=== PATIENT | female | born 1965 | race Caucasian/White ===

== ENCOUNTER 2019-12-12 06:41 | Emergency (ER) | payer MEDICAID, SELFPAY ==
[2019-12-12 06:52] VITALS: BP 193/131; PULSE 110; RESP 16; TEMP 36.8; O2SAT 98; BMI 24.7
--- NOTE | 2019-12-12 07:13 | ED_ITS ---
HPI - Fall General: Chief Complaint: Fall Stated Complaint: R KNEE INJURY Time Seen by Provider: 12/12/19 06:55 History of Present Illness: HPI Narrative: Patient is a 54-year-old female comes to the ED with right knee pain after having a fall. Patient also has 2 abrasions on knee as well. Patient says she had her last tetanus shot approximately a year ago. Patient is able to ambulate. Denies hitting her head or any loss of consciousness. complaint: fall Onset (ago): hour(s) (1 hour ago) Fall from: standing Fall witnessed: no Place fall occurred: work (pt was outside on her smoke break) Loss of consciousness: None Prolonged down time: no Symptoms prior to fall: none Context: tripped/slipped (pt stepped in a hole causing her to trip) Location of injury - extremities: Right: knee (with some abrasions) Severity: mild Severity scale (1-10): 3 Quality: aching Associated symptoms-after fall: Denies abdominal pain, chest pain, headache(s), hematuria or neck pain Review of Systems Const: Denies: fever(s), chills or fatigue Eyes: Denies: change in vision or eye discomfort ENMT: Denies: throat pain, odynophagia, nasal discharge or nasal congestion Card: Denies: chest pain, palpitations, edema, swelling of feet/ankles, dyspnea on exertion or orthopnea Resp: Denies: dyspnea, productive cough or non-productive cough GI: Denies: abdominal pain, nausea, vomiting, diarrhea, constipation or hematochezia : Denies: flank pain, dysuria or hematuria Musc: Reports: extremity pain (right knee); Denies: neck pain, back pain or extremity swelling Skin/Breast: Reports: new lesions (abrasions on right knee); Denies: rash Neuro: Denies: headache(s), numbness in extremities or weakness in extremities PFS ED PFSH: Social History Smoking and tobacco status: current every day smoker Alcohol intake: never Physical Exam Const: COMMON NORMALS: no acute distress, patient oriented x3, healthy appearing and alert GENERAL APPEARANCE: cooperative and comfortable HENMT: COMMON NORMALS: normocephalic HEAD & SCALP: normocephalic MOUTH: Normal oral and palatal mucosa present THROAT: posterior oropharynx normal and uvula midline Eye: COMMON NORMALS: Equal, round and reactive pupils present PUPIL: Yes Equal, round and reactive pupils present Neck/C-Spine: COMMON NORMALS: supple GENERAL: Yes normal visual inspection Resp: COMMON NORMALS: normal respiratory effort, No retractions, No use of accessory muscles and clear to auscultation bilaterally AUSCULTATION: clear to auscultation bilaterally Cardio: COMMON NORMALS: regular rate, regular rhythm, S1 normal heart sound present, S2 normal heart sound present, No gallops present (Cardio), No clicks present (Cardio), No murmurs present (Cardio) and Peripheral pulses 2+ throughout RATE: regular rate RHYTHM: regular rhythm HEART SOUNDS: S1 normal heart sound present and S2 normal heart sound present PERIPHERAL PULSES: Peripheral pulses 2+ throughout GI: COMMON NORMALS: Normal to inspection, nondistended, normoactive bowel soun ds present, Soft to palpation, non-tender and no masses PALPATION: Yes Soft to palpation : COMMON NORMALS: Yes no CVA tenderness BLADDER/KIDNEY EXAM: Yes no CVA tenderness Back/Pelvis: COMMON NORMALS: no CVA tenderness Extremity: RIGHT LOWER EXTREMITY: Yes knee joint Right knee: Yes inspection (Multiple abrasions on right knee. No visible edema or ecchymosis seen.), Yes palpation (mild tenderness), Yes ROM (Full with minimal pain.) and Yes neurovascular exam (Intact) Neuro: COMMON NORMALS: patient oriented x3 and moves all extremities SENSORIUM/ORIENTATION: Yes alert Skin: GENERAL SKIN EXAM: dry skin TRAUMA: abrasion (multiple superficial abrasions on right knee) Course Vital Signs: Vital signs: Vital Signs Temperature 98.2 F 12/12/19 06:52 Pulse Rate 110 H 12/12/19 06:52 Respiratory Rate 16 12/12/19 06:52 Blood Pressure 193/131 12/12/19 06:52 Pulse Oximetry 98 12/12/19 06:52 MDM - Fall MDM Narrative: Medical decision making narrative: Patient is a 54-year-old female comes to the ED with right knee pain pain after having a fall. Patient has multiple superficial abrasions of the right knee. X-ray was performed on right knee showed no acute fractures or findings. Patient says she was up-to-date on her tetanus. Her abrasions were irrigated, bacitracin was applied and bandaged. Patient was told to rest, ice and elevate right knee as needed to improve symptoms. Take [id number] ibuprofen for pain. Follow-up with PCP in 7 to 10 days for reevaluation. Return to ED precautions given. Patient understood and agreed with plan. Imaging Data^: Xray Ortho: Attestation: I personally reviewed and interpreted this imaging study as follows: My impression: right knee xray-no acute fractures or findings. Discharge Plan Discharge Patient Disposition: Home Clinical Impression: Abrasion Contusion Qualifiers: Encounter type: initial encounter Contusion area: knee Laterality: right Qualified Code(s): S80.01XA - Contusion of right knee, initial encounter Condition: Stable Prescriptions: No Action No Known Home Medications RF: 0 Discharge Orders: Discharge Order (Routine); Ordered 12/12/19 Ordered By: Kyrie Isabel Discharge Diet: Regular Discharge Activity: Resume usual activity Patient Instructions: Contusion in Adults (ED), Knee Pain (ED) Activity Restrictions/Additional Instructions: Follow-up with medical provider as directed in 7-10 days. Take over the counter ibuprofen for pain. Rest, ice and elevate right knee to help improve symptoms. Return to the ER or your medical provider if condition worsens. Please read and understand discharge instructions. If any questions, please ask. Coding Level of Care Code ED Tax Collector for Mattie Fwhernando Exam Comprehensive
--- NOTE | 2019-12-12 07:18 | XR_ITS ---
WS: [id number] Right knee, 3 views, 12/11/2019 Clinical Data: fall with knee pain Comparison: None. Findings: No fractures or dislocations are seen. The joint spaces are normal. The patella is intact. The soft t issues are unremarkable. XR/XR knee RT 3V* [id number] Impression: Negative right knee.
[2019-12-12] MEDS: ketorolac 60 mg/2 mL INJ IM (07:31)
[2019-12-12 07:45] VITALS: BP 178/103; PULSE 84; O2SAT 98
--- NOTE | 2019-12-12 07:45 | PC.NURSE ---
wound cleaned with sterile water, bactiracin applied, wound dressed with kerlix and coban.
[2019-12-12] MEDS: bacitracin ointment Pkt 1 EACH TOPICAL (07:58)
== END 2019-12-12 07:45 | disposition home or self-care (01) ==
LOC: ER 07:58
PROVIDERS: Emergency Provider Physician Assistant
DX: S80.01XA Contusion of right knee, initial encounter (principal); F17.210 Nicotine dependence, cigarettes, uncomplicated; W19.XXXA Unspecified fall, initial encounter
CPT/HCPCS: 12345; 73562; 96372; 99281; 99283; J1885

== ENCOUNTER 2020-03-30 08:02 | Emergency (ER) | payer OTHER, SELFPAY ==
--- NOTE | 2020-03-30 08:16 | ED_ITS ---
HPI - Extremity Injury (Upper) General: Chief Complaint: Wound/Laceration Stated Complaint: FINGER INJURY Time Seen by Provider: 03/30/20 08:06 Source: patient Mode of arrival: ambulatory Limitations: no limitations History of Present Illness: HPI narrative: Pleasant 54-year-old female patient presents to the emergency department with left second finger, index finger injury. Injury occurred at work, reports was opening a door and smashed her left index finger against a metal cart. She sustained laceration. Received tetanus vaccine earlier this year. complaint: injury to: left and finger Onset (ago): minute(s) (15) Other Extremity Injury: Left: fingers Other injuries: none Handedness: right Place: work Severity: mild Severity scale (1-10): 3 Relieving factors: other (pressure) Exacerbating factors: movement of extremity Context: crush and injury Associated symptoms: Reports no associated symptoms; Denies neck pain or weakness in extremities Treatments prior to arrival: bandage Review of Systems General: Reports: 10 or more systems reviewed and unremarkable except in HPI and below Const: Denies: fever(s), chills or diaphoresis Eyes: Denies: blurry vision or eye redness ENMT: Denies: throat pain, dental pain or disequilibrium Card: Denies: chest pain, palpitations or irregular heart rhythm Resp: Denies: dyspnea, productive cough, non-productive cough or wheezing GI: Denies: abdominal pain, nausea or vomiting : Denies: difficulty voiding or dysuria Musc: Reports: extremity pain (left index finger); Denies: neck pain, back pain or limited range of motion Skin/Breast: Denies: rash or pruritus Neuro: Denies: headache(s), weakness in extremities or behavioral changes Psych: Denies: anxiety or depression Paul/Lymph: Denies: easy bruising PFSH ED PFSH: Medical History Allergic rhinitis due to allergen Anxiety about health Hypertension PVD (peripheral vascular disease) with claudication Stroke Social History Smoking and tobacco status: current every day smoker cigarettes Packs smoked per day: 0.75 Second hand smoke exposure: Yes Alcohol intake: never Current occupational status: employed Physical Exam Const: COMMON NORMALS: no acute distress, patient oriented x3, healthy appearing and alert GENERAL APPEARANCE: cooperative, comfortable and well hydrated HENMT: COMMON NORMALS: normocephalic, Normal external nose present and moist oral mucous membranes HEAD & SCALP: normocephalic NOSE: Normal external nose present Eye: COMMON NORMALS: Equal, round and reactive pupils present and EOMs intact bilaterally GENERAL EYE: appearance normal, both eyes and all related structures PUPIL: Yes Equal, round and reactive pupils present Neck/C-Spine: COMMON NORMALS: full ROM and no lymphadenopathy GENERAL: Yes normal visual inspection and Yes trachea midline CERVICAL SPINE: Yes cervical ROM normal Lymph: LYMPHATIC: no lymphadenopathy noted Chest: COMMONS NORMALS: normal inspection of the chest Resp: COMMON NORMALS: normal respiratory effort and clear to auscultation bilaterally AUSCULTATION: clear to auscultation bilaterally Cardio: COMMON NORMALS: regular rhythm, S1 normal heart sound present and S2 normal heart sound present RHYTHM: regular rhythm HEART SOUNDS: S1 normal heart sound present and S2 normal heart sound present GI: COMMON NORMALS: Soft to palpation and non-tender INSPECTION: Yes normal to inspection PALPATION: Yes Soft to palpation : COMMON NORMALS: Yes no CVA tenderness BLADDER/KIDNEY EXAM: Yes no CVA tenderness Back/Pelvis: COMMON NORMALS: no CVA tenderness and thoracic and lumbar spine normal to inspection Extremity: COMMON NORMALS: normal to inspection, full ROM and capillary refill normal GENERAL: Yes normal exam except as noted LEFT UPPER EXTREMITY: Yes hand & digits (left index finger with laceration, distal tip, volar side, no nail injury) Left hand and digits: Yes palpation (non-tender), Yes neurovascular exam (distally intact) and Yes tendon exam (intact distally) Neuro: COMMON NORMALS: patient oriented x3 and no focal motor deficits SENSORIUM/ORIENTATION: Yes alert Psych: COMMON NORMALS: mental status grossly normal, Normal thought process present and cooperative ACTIVITY/MOTOR BEHAVIOR: Yes appropriate eye contact THOUGHT PROCESS: Normal thought process present Skin: COMMON NORMALS: no rashes or lesions noted and turgor normal GENERAL SKIN EXAM: no rashes or lesions noted and turgor normal LESIONS: no lesions RASHES: no rashes TRAUMA: laceration (1 cm) linear (Vertical, distal tip left index finger, volar side), actively bleeding, involves subcutaneous tissue, motor nerve function intact and sensation intact Procedures Laceration Laceration 1: Site: hand (left index finger) Side (If applicable): left Description: linear (contused) Depth: simple, single layer Local Anesthetic: lidocaine 1% Amount of anesthesia used (mL): 1 Pre-repair: wound explored, irrigated extensively and deep structures intact Skin layer closed with: nylon Size (cm): 5-0 Number of sutures: 1 Technique: simple, interrupted Course Vital Signs: Vital signs: Vital Signs Temperature 98.5 F 03/30/20 08:32 Pulse Rate 90 03/30/20 10:34 Respiratory Rate 18 03/30/20 10:34 Blood Pressure 172/116 03/30/20 10:34 Pulse Oximetry 97 03/30/20 10:34 MDM - Extremity Injury (Upper) MDM Narrative: Medical decision making narrative: 54-year-old female patient presents to the emergency department with left index finger injury, Workmen's Compensation forms completed, blood pressure was noted to be elevated here in the ED, she reports did not take her blood pressure medication today, noncompliance with daily medication use. She was instructed on need to follow- up with her primary care physician as well as take her blood pressure medication daily. Imaging Data^: Xray Ortho: Radiologist's impression: [address] [address] XRay Report Signed Patient: Hortensia Lanier Unit #: [id number] : 1965 Age/Sex: 54 / F ADM Date: 03/30/20 Loc: ER Room/Bed: Attending Dr: Ordering Provider/Ordering MD: Ciara Yoder Date of Service: 03/30/20 Procedure(s): XR finger LT min 2V 07150 Accession Number(s): [id number] Report Number: [id number] PROCEDURE INFORMATION: Exam: XR Left Finger(s) Exam date and time: 03/30/2020 8:28 AM Age: 54 years old Clinical indication: Injury or trauma; Blunt trauma (contusions or hematomas) and crushing; Left; Index finger; Patient HX: 2nd digit crushed in door; Additional info: Crush/smash injury TECHNIQUE: Imaging protocol: XR Left fingers. Views: Minimum 2 views. COMPARISON: CTA Upper Extrem LEFT [id number] 02/19/2016 2:05 PM FINDINGS: Bones/joints: There is a nondisplaced curvilinear fracture through the tuft of the distal phalanx which is best seen on the AP view. Soft tissues: Normal. XR/XR finger LT min 2V 86662 IMPRESSION: Nondisplaced fracture of the tuft. Dictated By: Benji De Leon Signed By: Benji De Leon Signed Date/Time: 03/30/20918 DD/ 6 Discharge Plan Discharge Patient Disposition: Home Clinical Impression: Crushing injury of finger of left hand Laceration of finger, index Qualifiers: Encounter type: initial encounter Damage to nail status: without damage Foreign body presence: without foreign body Laterality: left Qualified Code(s): S61.211A - Laceration without foreign body of left index finger without damage to nail, initial encounter Finger fracture, left Qualifiers: Encounter type: initial encounter Finger: index finger Fracture type: open Phalanx: distal Fracture alignment: nondisplaced Qualified Code(s): S62.661B - Nondisplaced fracture of distal phalanx of left index finger, initial encounter for open fracture Condition: Stable Prescriptions: No Action aspirin 81 mg tablet,delayed release (DR/EC) 81 mg PO DAILY Qty: 100 RF: 3 fexofenadine [Allergy Relief (fexofenadine)] 60 mg tablet 60 mg PO DAILY RF: 0 sertraline [Zoloft] 50 mg tablet 50 mg PO DAILY Qty: 30 RF: 0 lisinopril 20 mg tablet 20 mg PO DAILY Qty: 30 RF: 2 Discharge Orders: Discharge ED (Routine); Ordered 03/30/20 Ordered By: Ciara Yoder Referrals: Monster Grigsby MD [Primary Care Provider] - Discharge Diet: Usual diet Discharge Activity: Limit activity as instructed Patient Instructions: Crush Injury, Suture Care (ED), Laceration (ED), Finger Fracture (ED), Chronic Hypertension (ED) Activity Restrictions/Additional Instructions: no use of the left hand until suture are removed follow up with workman's comp tomorrow for wound check do NOT submerge the affected finger in water, may apply triple antibiotic ointment twice daily to the area, may apply Band-Aid as needed If sutures get wet, gently pat dry If signs and symptoms of infection such as redness swelling drainage occur, you will need to return to the emergency department or follow-up with Workmen's Comp. Sutures out in [address] up [address] Dr Carter for blood pressure - take BP medication, DAILY and record BP readings Coding Level of Care Code ED Restaurant Hourly Manager for Mattie Fwd Exam Comprehensive
--- NOTE | 2020-03-30 08:16 | XRR_ITS ---
PROCEDURE INFORMATION: Exam: XR Left Finger(s) Exam date and time: 03/30/2020 8:28 AM Age: 54 years old Clinical indication: Injury or trauma; Blunt trauma (contusions or hematomas) and crushing; Left; Index finger; Patient HX: 2nd digit crushed in door; Additional info: Crush/smash injury TECHNIQUE: Imaging protocol: XR Left fingers. Views: Minimum 2 views. COMPARISON: CTA Upper Extrem LEFT [id number] 02/19/2016 2:05 PM FINDINGS: Bones/joints: There is a nondisplaced curvilinear fracture through the tuft of the distal phalanx which is best seen on the AP view. Soft tissues: Normal. XR/XR finger LT min 2V 79192 IMPRESSION: Nondisplaced fracture of the tuft.
[2020-03-30 08:32] VITALS: BP 171/103; PULSE 98; RESP 18; TEMP 36.9; O2SAT 99; BMI 25.8
[2020-03-30 09:00] VITALS: BP 161/103; O2SAT 94
[2020-03-30] MEDS: acetaminophen 500 mg Tablet 1000 MG PO (09:14)
[2020-03-30] MEDS: lidocaine 1% INJ 20 mL INJECTION (09:15)
[2020-03-30] MEDS: neomycin-poly-bacitracin oint 0.9 gm Pkt 1 APPLIC TOPICAL (09:15)
[2020-03-30 09:25] VITALS: BP 166/108; PULSE 90; O2SAT 96
[2020-03-30] MEDS: lisinopril 20 mg Tablet PO (09:48)
--- NOTE | 2020-03-30 10:00 | PC.NURSE ---
Teljazlyn, kvng and frog splint appied to left 2nd finger. Pt tolerated well. Dressing applied loosely per practitioners orders.
[2020-03-30 10:34] VITALS: BP 172/116; PULSE 90; RESP 18; O2SAT 97
== END 2020-03-30 10:31 | disposition home or self-care (01) ==
PROVIDERS: Emergency Provider Nurse Practitioner Family; PCP Family Medicine Adult Medicine
DX: S67.191A Crushing injury of left index finger, initial encounter (principal); S61.211A Laceration without foreign body of left index finger without damage to nail, initial encounter; S62.661B Nondisplaced fracture of distal phalanx of left index finger, initial encounter for open fracture; Z79.82 Long term (current) use of aspirin; I10 Essential (primary) hypertension; F17.210 Nicotine dependence, cigarettes, uncomplicated; W23.0XXA Caught, crushed, jammed, or pinched between moving objects, initial encounter; Y99.0 Civilian activity done for income or pay; Z86.73 Personal history of transient ischemic attack (TIA), and cerebral infarction without residual deficits
CPT/HCPCS: 12001; 12345; 73140; 99281; 99283; A6446

== ENCOUNTER 2020-10-12 14:25 | Emergency (ER) | payer OTHER, MEDICAID, SELFPAY ==
[2020-10-12 15:07] VITALS: BP 125/86; PULSE 112; RESP 20; TEMP 36.6; O2SAT 95; BMI 30.1
--- NOTE | 2020-10-12 17:05 | PC.NURSE ---
wound cleaned and irrigated with bandage applied to right thigh and right calf; pt tolerated well.
[2020-10-12] MEDS: neomycin-poly-bacitracin oint 0.9 gm Pkt 1 APPLIC TOPICAL ×2 (17:13→17:33)
--- NOTE | 2020-10-12 17:23 | W.ED.ANIMALB ---
HPI - Animal Bite General: Chief Complaint: Animal Bite Stated Complaint: DOG BITE Time Seen by Provider: 10/12/20 15:54 Source: patient Mode of arrival: EMS Limitations: no limitations History of Present Illness: HPI narrative: Patient is a 55-year-old female who stated that she got new neighbors who have several dogs 1 of which was a pitbull attacked her and bit her on her right thigh today. It was an unprovoked attack according to the patient. The patient states that her neighbor said the dog is up-to-date on his vaccines, however she is to call law enforcement to report the case. She states that she is up-to-date on her tetanus vaccines. complaint: animal bite Onset (ago): hour(s) (1) Animal: dog Description of animal: household pet and immunizations UTD Mechanism: bite Location - Extremities: Right: thigh Pain description: sharp Severity scale (1-10): 10 Context: unprovoked Associated symptoms: Deny bleeding, chills, cough, diaphoresis, erythema, fever(s), headache(s), numbness, rash, short of breath, syncope, weakness or wound drainage Review of Systems General: Reports: 10 or more systems reviewed and unremarkable except in HPI and below Const: Denies: fever(s), chills or diaphoresis Card: Denies: syncope Neuro: Denies: headache(s) PFSH ED PFSH: Medical History (Reviewed 10/12/20 @ 17:26 by Jovani Arzola MD, [facility] [place]) Allergic rhinitis due to allergen Anxiety about health Hypertension Lumbosacral strain Porokeratosis PVD (peripheral vascular disease) with claudication Stroke Social History (Reviewed 10/12/20 @ 17:26 by Jovani Arzola MD, [facility] [place]) Smoking and tobacco status: current every day smoker cigarettes Packs smoked per day: 0.75 Second hand smoke exposure: Yes Alcohol intake: never Current occupational status: employed Physical Exam Const: COMMON NORMALS: no acute distress, average body habitus, patient oriented x3, no limitations, healthy appearing, alert and well nourished HENMT: COMMON NORMALS: normocephalic, atraumatic and moist oral mucous membranes HEAD & SCALP: normocephalic and atraumatic Neck/C-Spine: COMMON NORMALS: no meningeal signs and no JVD Chest: COMMONS NORMALS: normal inspection of the chest and normal palpation of entire chest wall Resp: COMMON NORMALS: normal respiratory effort, No retractions, No use of accessory muscles, clear to auscultation bilaterally and percussion normal AUSCULTATION: clear to auscultation bilaterally PERCUSSION: percussion normal Cardio: COMMON NORMALS: no JVD, regular rate, regular rhythm, S1 normal heart sound present, S2 normal heart sound present, No gallops present (Cardio), No clicks present (Cardio), No murmurs present (Cardio), No rub (Cardio) and Peripheral pulses 2+ throughout RATE: regular rate RHYTHM: regular rhythm HEART SOUNDS: S1 normal heart sound present and S2 normal heart sound present PERIPHERAL PULSES: Peripheral pulses 2+ throughout GI: COMMON NORMALS: Normal to inspection, nondistended, normoactive bowel sounds present, Soft to palpation, non-tender, No hepatosplenomegaly present, no masses and no bruits PALPATION: Yes Soft to palpation and Yes No hepatosplenomegaly present : COMMON NORMALS: Yes no CVA tenderness BLADDER/KIDNEY EXAM: Yes no CVA tenderness Back/Pelvis: COMMON NORMALS: no CVA tenderness Extremity: COMMON NORMALS: normal to inspection, full ROM, capillary refill normal, no calf tenderness and no pedal edema Neuro: COMMON NORMALS: patient oriented x3 SENSORIUM/ORIENTATION: Yes alert MENINGEAL SIGNS: Yes no meningeal signs Skin: COMMON NORMALS: turgor normal, no jaundice, no petechiae and no mottling GENERAL SKIN EXAM: turgor normal and no erythema OTHER: There are multiple puncture wounds on her posterior right thigh and one jagged laceration that is about 6 cm in length. There are 5 puncture wounds on the posterior thigh with underlying hematoma that is developing. There is also a single puncture wound on her distal posterior leg. No signs of infection. Procedures Laceration Laceration 1: Site: lower extremity Side (If applicable): right Size (cm): 6 Description: irregular Depth: simple, single layer Local Anesthetic: lidocaine 2% and with epi Amount of anesthesia used (mL): 5 Pre-repair: wound explored, irrigated extensively and deep structures intact Skin layer closed with: nylon Size (cm): 4-0 Number of sutures: 5 Technique: simple, interrupted Course Vital Signs: Vital signs: Vital Signs Temperature 98 F 10/12/20 15:07 Pulse Rate 112 H 10/12/20 15:07 Respiratory Rate 20 H 10/12/20 15:07 Blood Pressure 125/86 10/12/20 15:07 Pulse Oximetry 95 10/12/20 15:07 MDM - Animal Bite MDM Narrative: Medical decision making narrative: 55-year-old female patient who was bit by her neighbors erika today. The neighbor claims that the chelseabudavid is vaccinated. However law enforcement was called and have impounded the dog. The dog is at the dog pound and is going to be watched for signs of rabies. Because the dog is in custody the patient is not given rabies postexposure prophylaxis. Her wounds were cleaned and thoroughly irrigated and antibiotic ointment applied to the wounds. The large laceration was sutured, however the puncture wounds were left open so the drainage can occur. She was given a dose of intramuscular ceftriaxone in the emergency department and discharged home with a prescription for Augmentin. Wound care instructions given to the patient. She will follow-up with her primary care provider for wound care. Medical Records: Attestation: I reviewed the patient's medical records. Discharge Plan Discharge Patient Disposition: Home Clinical Impression: Dog bite Qualifiers: Encounter type: initial encounter Qualified Code(s): W54.0XXA - Bitten by dog, initial encounter Laceration of right thigh Qualifiers: Encounter type: initial encounter Qualified Code(s): S71.111A - Laceration without foreign body, right thigh, initial encounter Traumatic hematoma of left thigh Qualifiers: Encounter type: initial encounter Qualified Code(s): S70.12XA - Contusion of left thigh, initial encounter Condition: Stable Prescriptions: New Augmentin 875-125 mg tablet 1 tab PO Q12H Qty: 14 RF: 0 Continued sertraline 100 mg tablet 100 mg PO DAILY Qty: 30 RF: 3 lisinopril 20 mg tablet 20 mg PO DAILY Qty: 30 RF: 5 aspirin 81 mg tablet,delayed release (DR/EC) 81 mg PO DAILY Qty: 100 RF: 3 imiquimod 5 % cream in packet 1 applic topical DAILY RF: 0 Allergy Medication 25 mg Capsule 25 mg PO DAILY RF: 0 Discharge Orders: Discharge ED (Routine); Ordered 10/12/20 Ordered By: Jovani Arzola Referrals: Monster Grigsby MD [Primary Care Provider] - 1-3 days Discharge Diet: Usual diet Discharge Activity: Increase activity as tolerated Patient Instructions: Animal Bite (ED), Laceration (ED), Contusion in Adults (ED) Activity Restrictions/Additional Instructions: Return for any new or worsening symptoms. Follow-up with your primary care provider within 3 days. The dog has been impounded and a second dog pound to be watched. If there are any signs of rabies then you will be advised to get the rabies postexposure prophylaxis. Until then we are not going to give you any rabies vaccinations at this time. Take the antibiotic as prescribed. Clean the wounds that are open with soap and water daily and apply an antibiotic ointment to the wound. Coding Level of Care Code ED Broodmare Foreman for Mattie Fwd Exam Comprehensive
[2020-10-12] MEDS: neomycin-poly-bacitracin oint 0.9 gm Pkt 5 APPLIC TOPICAL (17:32)
== END 2020-10-12 17:48 | disposition home or self-care (01) ==
PROVIDERS: Emergency Provider Family Medicine; PCP Family Medicine Adult Medicine
DX: S71.151A Open bite, right thigh, initial encounter (principal); W54.0XXA Bitten by dog, initial encounter; S70.12XA Contusion of left thigh, initial encounter; Z79.82 Long term (current) use of aspirin; I10 Essential (primary) hypertension; F17.210 Nicotine dependence, cigarettes, uncomplicated
CPT/HCPCS: 12002; 99282

== ENCOUNTER 2020-10-30 13:23 | Outpatient (CLI) | payer OTHER, MEDICAID, SELFPAY | END 2020-10-30 13:24 | disposition home or self-care (01) | LOC: WOUND 13:24 | PROVIDERS: PCP Family Medicine Adult Medicine; Visit Provider Surgery | DX: L97.812 Non-pressure chronic ulcer of other part of right lower leg with fat layer exposed (principal); F17.210 Nicotine dependence, cigarettes, uncomplicated | CPT/HCPCS: G0463 ==

== ENCOUNTER 2020-10-30 15:21 | Observation (INO) | payer OTHER, MEDICAID, SELFPAY ==
[2020-10-30] MEDS: sodium chloride 0.9% 1,000 ML 75 ML IV (17:47)
[2020-10-30] MEDS: vancomycin 1,000 MG in sodium chloride 0.9% 250 ML 250 MG IV (17:49)
[2020-10-30 18:02] VITALS: BP 178/100; PULSE 89; RESP 18; TEMP 36.8; O2SAT 96
[2020-10-30] MEDS: lisinopril 20 mg Tablet PO (18:48)
[2020-10-30 18:49] LABS: Basophils % 0.4 %; Eosinophils # 0.2 10^3/uL (0.0-0.8); Hemoglobin 13.6 g/dL (11.5-15.3); Lymphocytes # 2.7 10^3/uL (0.8-4.8); Lymphocytes % 32.8 %; Mean Corpuscular HGB Conc 32.4 g/dL (30.0-36.0); Mean Corpuscular Hemoglobin 31.8 pg (28.0-34.0); Mean Corpuscular Volume 98.1 fL (81-99); Mean Platelet Volume 9.1 fL (7.4-10.4); Monocytes # 0.6 10^3/uL (0.2-0.9); Monocytes % 6.6 %; Neutrophils # 4.85 10^3/uL (1.8-7.7); Neutrophils % 58.1 %; Nucleated Red Blood Cells % 0 %; Platelet Count 357 10^3/cmm (130-400); Red Blood Count 4.28 10^6/uL (4.1-5.3); Red Cell Distribution Width 12.6 % (12.1-15.1); White Blood Count 8.4 10^3/uL (4.0-10.0)
[2020-10-30] MEDS: HYDROcodone-acetaminophen 5-325 mg Tablet 1 TAB PO (18:49)
[2020-10-30 19:17] LABS: Alanine Aminotransferase 16 U/L (0-33); Albumin Level 3.9 g/dL (3.5-5.2); Alkaline Phosphatase 119 IU/L (35-105); Anion Gap 12.7 (5-19); Aspartate Amino Transferase 20 U/L (0-32); Blood Urea Nitrogen 10 mg/dL (6-20); Calcium 8.7 mg/dL (8.5-10.5); Carbon Dioxide 27 mmol/L (22-29); Chloride 102 mmol/L (98-107); Globulin 2.9 g/dL (1.3-4.6); Glomerular Filtration Rate 103.8 mL/min (90-130); Glucose 91 mg/dL (65-115); Osmolality Calculated 285 mOsm/kg (285-295); Potassium 3.7 mmol/L (3.5-5.1); Sodium 138 mmol/L (136-145); Total Bilirubin 0.4 mg/dL (0.15-1.2); Total Protein 6.8 g/dL (6.6-8.7)
[2020-10-30 19:20] VITALS: BP 180/88; PULSE 82; RESP 18; TEMP 37; O2SAT 98
[2020-10-30 23:05] VITALS: BP 145/86; PULSE 71; RESP 18; TEMP 36.9; O2SAT 95
[2020-10-31] VITALS (23 sets, daily range): BP systolic 122–205; BP diastolic 69–109; PULSE 71–102; RESP 16–18; TEMP 36.1–36.9; O2SAT 93–99; BMI 30.1
[2020-10-31] MEDS: HYDROcodone-acetaminophen 5-325 mg Tablet 1 TAB PO ×2 (00:51→11:13)
[2020-10-31] MEDS: vancomycin 1,000 MG in sodium chloride 0.9% 250 ML 250 MG IV (06:19)
[2020-10-31] MEDS: sodium chloride 0.9% 1,000 ML 75 ML IV (06:22)
--- NOTE | 2020-10-31 06:42 | PM.PN ---
Subjective Subjective: Interval history: Patient seems to be feeling fairly well. Reports that she had a dog bite around October, and ever since the wounds have been getting worse. Presented yesterday to the wound care center and I elected to send the patient for direct admission to get the benefit of parenteral antimicrobial therapy with the plan for surgical debridement today in the OR. Patient reports that the dog was quarantined without signs of rabies,patient reports that she is updated on tetanus. Medications: Reviewed: Yes Vitals/I&O/Wt Last Vital Signs Temp 97.8 F 10/31/20 04:55 Pulse 71 10/31/20 04:55 Resp 18 10/31/20 04:55 BP 159/88 10/31/20 04:55 Pulse Ox 96 10/31/20 04:55 10/30/20 10/30/20 10/31/20 14:59 22:59 06:59 Intake Total 250 / 250 943.75 / 1193.75 Balance 250 / 250 943.75 / 1193.75 Physical Exam Narrative: EXAM NARRATIVE: Patient is conscious alert oriented X3 Head and neck examination PERRLA no masses no cervical lymphadenopathy no jaundice Right lower extremity shows 10 x 15 CM large indurated area occupying the medial to posterior aspect of the mid right thigh and an inch in diameter eschar at the posterior aspect of the lower third of the leg. Intact gross neurovascular exam Data : 10/30/20 18:29 10/30/20 18:29 A&P Assessment and plan (1) Dog bite of extremity: After thorough history physical examination reviewing the chart, I did primary substance abuse counselor the patient for right lower extremity wound debridement in the OR. Locations, risks, benefits and alternatives all discussed with the patient and she did agree to proceed accordingly. Patient understands that she may require future surgical debridement and weekly follow-up at the wound care center in addition to longer duration for potential wound healing. Informed consent per chart Assurance and education All questions have been answered and all concerns have been addressed to patient's satisfaction. Status: Acute Attestations Medical Necessity Statement*: Observation status for perioperative care and wound care teaching Time Spent in Patient Care: (>than 50% of time spent in counselling and/or direct pt care on unit). Coding Level of Care Code Acute Hotel Supplies Salesperson for Mattie Javed Diagnoses Dog bite of extremity
[2020-10-31] MEDS: acetaminophen 1,000 MG/100 ML PIGGYBACK 400 MG IV (08:01)
--- NOTE | 2020-10-31 08:31 | P.ANESASSM_ITS ---
Pre-Anesthetic Assessment Pre-Anesthetic Assessment: Height/Weight: Height 1.73 m Weight 89.811 kg Temp Pulse Resp BP Pulse Ox 97.7 F 74 18 205/97 98 10/31/20 07:50 10/31/20 07:50 10/31/20 07:50 10/31/20 07:50 10/31/20 07:50 Preop Diagnosis: Right lower extremity wounds Proposed Procedure: Operation Date: 10/31/20 09:50 Proposed Procedures p Debridement RLE Wounds(Right) - Jian Rachel MD Was Beta Elmer taken within 24 hours: N/A Was Clonidine taken within 24 hours: N/A Last intake: Intake Last Liquid Date 10/30/20 Last Liquid Time 23:30 Last Solid Date 10/30/20 Last Solid Time 19:35 Social: Social History: No alcohol Exam: Pre-Anes Outpt Exam: alert, oriented x 3, clear to auscultation bilaterally and regular rate & rhythm Airway: Submandibular: WNL Cervical ROM: WNL MP: 2 Dentition: False Pulmonary: Pulmonary: COPD CV/HEM: CV/HEM: HTN and PVD Neuropsych: Neuropsych: Anxiety and TIA Anesthetic Plan: ASA status: 3 Anesthesia: General Risk of > 500 ml blood loss (7ml/kg in children): No Meds/Allergies Current Medications: Current Medications Generic Name Dose Route Start Last Admin Trade Name Freq PRN Reason Stop Dose Admin Hydrocodone Bitart /Acetaminophen 1 tab 10/30/20 17:19 10/31/20 00:51 Hydrocodone-Acet aminophen 5-325 Mg Tablet PO 1 tab Q6H PRN Administration MODERATE PAIN Sodium Chloride 1,000 mls @ 75 ml s/hr 10/30/20 17:30 10/31/20 06:22 Sodium Chloride 0.9% IV 75 mls/hr .[id number] SHAINA Administration Vancomycin HCl 1,0 00 mg/ 250 mls @ 250 mls /hr 10/30/20 18:00 10/31/20 07:41 Sodium Chloride IV Infused Q12H SHAINA Infusion Protocol Lisinopril 20 mg 10/30/20 18:00 10/30/20 18:48 Lisinopril 20 Mg Tablet PO 20 mg DAILY SHAINA Administration PFSH Anesthesia PFSH: Medical History Allergic rhinitis due to allergen Anxiety about health Cellulitis of right thigh Dog bite of extremity Hypertension Lumbosacral strain Porokeratosis PVD (peripheral vascular disease) with claudication Stroke Social History Smoking and tobacco status: current every day smoker cigarettes Packs smoked per day: 0.75 Second hand smoke exposure: Yes Alcohol intake: never Current occupational status: employed Data Anesthesia CBC & Chem 7: 10/30/20 18:29 10/30/20 18:29 Other Labs: Laboratory Results - last 48 hr 10/30/20 10/30/20 18:29 18:29 WBC 8.4 RBC 4.28 Hgb 13.6 Hct 42.0 MCV 98.1 MCH 31.8 MCHC 32.4 RDW 12.6 Plt Count 357 MPV 9.1 Neut % (Auto) 58.1 Lymph % (Auto) 32.8 Nance % (Auto) 6.6 Eos % (Auto) 2.0 Baso % (Auto) 0.4 Neut # (Auto) 4.85 Lymph # (Auto) 2.7 Nance # (Auto) 0.6 Eos # (Auto) 0.2 Baso # (Auto) 0.0 Nucleated RBC % (auto) 0 Nucleated RBCs # 0.0 Sodium 138 Potassium 3.7 Chloride 102 Carbon Dioxide 27 Anion Gap 12.7 BUN 10 Creatinine 0.6 GFR Calculation 103.8 Glucose 91 Calculated Osmolality 285 Calcium 8.7 Total Bilirubin 0.4 AST 20 ALT 16 Alkaline Phosphatase 119 H Total Protein 6.8 Albumin 3.9 Globulin 2.9 Cardiac Studies: No Data to Display
[2020-10-31] MEDS: lidocaine 2% INJ 20 mL (08:51)
--- NOTE | 2020-10-31 09:00 | P.OP_ITS ---
Operative Report Date of procedure: October 31, 2020 Pre-op Diagnosis: Right lower extremity wounds Status post dog bites Post-op diagnosis: same Post-op Findings: Necrosis of skin subcutaneous all the way to the musculofascial layer Of the right thigh wound and necrosis of skin and subcutaneous tissue of the right lower third wound. Procedure Done: 1-Sharp debridement of right lower extremity woundS 2-Excision of wound mass of the right thigh Implants: Large piece of Surgicel of right thigh wound and lower leg wound Specimens removed/disposition: Right thigh wound mass short sutures marked superior and long sutures marked lateral Surgeon: Jian Rachel Chemical Research Engineer: Surgical craig Colin and Sandra Circulating nurse Usha PARKS Estimated blood loss (mL): 5 Findings: Necrosis of skin and subcutaneous tissue all the way to the musculofascial layer of the right thigh wound and necrosis of skin and subcutaneous layer of the right lower third wound. Condition: stable Disposition: observation Brief History: Right lower extremity wound status post dog bite Procedure: After identifying the patient holding area, the right lower extremity was marked before the procedure by myself, patient was then taken to the operative suite, was placed in supine position, IV antibiotics were given per protocol, LMA was placed by the anesthesia provider,pressure points were padded and patient was secured appropriately to the bed., prep and drape of the right lower extremity was done under the usual sterile technique. Time-out was done verifying the patient's name/date of /planned procedure and destination after the procedure, all were in agreement. Started by excising the unhealthy necrotic indurated tissues of the right thigh wound. Incision was created at the skin level and went all the way down to the subcutaneous tissues and musculofascial layer, wound was excised including unhealthy tissues revealing wound mass that was passed to the circulating nurse for permanent pathology with short sutures marked superior and long sutures marked lateral. Attention now was deviated towards the lower third of the right leg where excision of the indurated unhealthy tissues were done all the way to the rich bcutaneous layer. Sharp debridement was achieved of both wounds. Copious and thorough irrigation was done for both wounds using Pulsavac 3 L warm saline, there were some bleeding points of the right thigh wound that was controlled by [id number] 3-0 silk sutures And Bovie cauterization. Predebridement measurements of the right thigh wound 13 x 8.5 cm x 0.1 cm Post debridement measurements of right thigh wound 15 x 11 x [address] to the fascial and muscular layer Predebridement measurements of the right lower third wound 3 x 4 x 0.1 cm Post debridement measurements 4.5 x 3 x [address] to the subcutaneous layer Tissues were sent for cultures and sensitivities from the necrotic tissues of the right lower third leg wound Pieces of Surgicel were placed in the form of 1 large piece of the right thigh wound and a smaller piece of the left lower third leg wound. After being packed with Kerlix wet-to-dry and lidocaine 2%., Followed by Kerlix ABDs and Ant wrap. Patient tolerated the procedure well, count of instruments, [place] and sponges were completed at the end of the procedure. Patient was then taken to the recovery area in stable condition. I was present for the whole entire procedure.
[2020-10-31] MEDS: fentaNYL 50 mcg/mL INJ 2mL IVP ×2 (09:15→09:29)
--- NOTE | 2020-10-31 09:34 | ANE.PACU2 ---
Inpatient post-anesthesia follow up: Airway intact: Yes Vital signs: Temperature 97 F Pulse Rate 86 Respiratory Rate 18 Blood Pressure 159/100 Pulse Oximetry 94 Oxygen Delivery Me thod Room Air Oxygen Flow Rate Fraction of Inspir ed Oxygen Hydration adequate: Yes Nausea and vomiting: No Pain level: 2 Mental status: Baseline
--- NOTE | 2020-10-31 14:42 | P.SS_ITS ---
Short Stay Summary Providers Date of Admit/Discharge: 10/31/20 Attending Provider: Jian Rachel MD Primary Care Provider: Monster Grigsby MD Chief Complaint: right lower extremity wounds due to dog bites HPI History of Present Illness Chief Complaint: My leg hurts History of present illness: Hortensia Lanier is a 55 year old female Sustained a dog bite injury back in October 15 and was treated conservatively and received antimicrobial therapy by mouth. Yet the wounds were not getting better and in fact they were deteriora ting and subsequently, the patient was referred to the wound care center for potential management and intervention.Patient was seen at the wound care center yesterday by me and after further evaluation I did counseling center manager the patient for debridement in the OR under general anesthesia. Patient had surgery today without complications and maintained to have appropriate postoperative course with pain being under control and started IV vancomycin yesterday in the hospital with appropriate lab work, and continued to have stable vital signs. Review of Systems General: Reports: 10 or more systems reviewed and unremarkable except in HPI and below Home Meds/Allergies Home Medications and Allergies Home Medications Medication Instructions Recorded Confirmed Type Allergy Relief (cetirizine) 10 mg PO DAILY PRN 10/31/20 10/31/20 History Triple Antibiotic 1 applic TOPICAL TID PRN 10/31/20 10/31/20 History aspirin 81 mg PO QAM 10/31/20 10/31/20 History lisinopril 20 mg PO QAM 10/31/20 10/31/20 History sertraline 100 mg PO QAM 10/31/20 10/31/20 History Allergies Allergy/AdvReac Type Severity Reaction Status Date / Time No Known Allergies Allergy Verified 10/31/20 14:44 PFSH Acute PFSH: Medical History Allergic rhinitis due to allergen Anxiety about health Cellulitis of right thigh Dog bite of extremity Hypertension Lumbosacral strain Porokeratosis PVD (peripheral vascular disease) with claudication Stroke Social History Smoking and tobacco status: current every day smoker cigarettes Packs smoked per day: 0.75 Second hand smoke exposure: Yes Alcohol intake: never Current occupational status: employed Vitals/I&O/Wt Last Vital Signs Temp 97.6 F 10/31/20 13:31 Pulse 86 10/31/20 13:31 Resp 17 10/31/20 13:31 BP 134/82 10/31/20 13:31 Pulse Ox 96 10/31/20 13:31 10/30/20 10/31/20 10/31/20 22:59 06:59 14:59 Intake Total 250 / 250 943.75 / 1193.75 2210 / 2210 Output Total 440 / 440 Balance 250 / 250 943.75 / 1193.75 1770 / 1770 Weight last 48 hrs Weight 198 lb Physical Exam Narrative: EXAM NARRATIVE: Patient is conscious alert oriented X3 Head and neck examination PERRLA no masses no cervical lymphadenopathy no jaundice Right lower extremity shows Dressing in place without complications and intact neurovascular exam Hospital Course Hospital Course Patient undergone uneventful surgery and continued to have appropriate postoperative pain control. Tolerating p.o. intake and met the appropriate criteria for safe discharge home. Home health was scheduled for the patient to start local wound care starting this coming Monday. In the interim we will plan to have the patient come back tomorrow at the outpatient surgical services for dressing change. In the form of daily wet-to-dry using 4 x 4's for packing using normal saline followed by ABD Kerlix and Ant wrap. Discharge Summary This is a pleasant 55 years old female patient sustained dog bite injury back in October 15 and presented to the wound care center for further evaluation where counseling was done for the patient for surgical debridement in the OR, but she did have today and the plan is to discharge home safely with plan of home health on board starting Monday, and patient will be coming tomorrow to the outpatient surgical services to have her first dressing change done.Patient will continue oral antibiotics and will follow on cultures and sensitivities for further antibiotics if and when needed, otherwise patient will follow up with me at the wound care center on 11/06/2020. SSS Data Data Completed and Pending: Pending at discharge Category Date Time Status Tissue Culture an d Gram Stain Judsoni ne Lab 10/31/20 08:42 Received Pathology: Surgic al [PTH] Routine Pth 10/31/20 10:29 Ordered Diagnoses at Discharge Discharge Diagnosis (1) Dog bite of extremity: Status: Resolved Discharge Plan Discharge Patient Disposition: Home Condition: Stable Prescriptions: New hydrocodone-acetaminophen 5-325 mg tablet 1 tab PO Q6H PRN (Reason: pain) Qty: 28 RF: 0 Continued sulfamethoxazole-trimethoprim 800-160 mg tablet 1 tab PO BID Qty: 20 RF: 0 tramadol 50 mg tablet 50 mg PO Q6H PRN (Reason: pain to severe pain) 10 Days Qty: 20 RF: 0 Triple Antibiotic 3.5mg-400 unit- 5,000 unit/gram Ointment 1 applic TOPICAL TID PRN (Reason: unknown) RF: 0 Allergy Relief (cetirizine) 10 mg Tablet 10 mg PO DAILY PRN (Reason: Allergy Symptoms) RF: 0 lisinopril 20 mg tablet 20 mg PO QAM RF: 0 sertraline 100 mg tablet 100 mg PO QAM RF: 0 aspirin 81 mg tablet,delayed release (DR/EC) 81 mg PO QAM RF: 0 Discharge Orders: Discharge Order (Routine); Ordered 10/31/20 Ordered By: Jian Rachel Referrals: [place] [facility] Setup(Medicaid) [Other] (Call this number to have In Home Services setup. They will ask you questions & based off your answers, you are given points. You have to have a certain number of points to qualify fo in home services. ) [facility] ([facility]) [Outside] Jian Rachel MD [Physician] - ( WOUND CARE CENTER Monday. ) Discharge Diet: Advance as tolerated Discharge Activity: Limit activity as instructed Patient Instructions: Opioid Safety Activity Restrictions/Additional Instructions: 1. Patient can shower after 48 hours from surgery WITH DRESSING ON THEN CHANGE DRESSING. 2. Remove PACKING TOMORROW AND REPACK INSTRUCTED. DAILY DRESSING CHANGE BY PACKING THE WOUND WITH WET TO DRY USING 4X4 FOLLOWED BY ABDS,KERKIERSTENX ANT WRAP. 3. Up and walking as tolerated 4. Do lift more than 5 pounds first 2 weeks after surgery and not more than 25 pounds 6 to 8 weeks after surgery. 5. Do not operate heavy machinery or drive while using pain medications. 6.Contact the office or return to the ER for worsening nausea vomiting fevers or chills, or noticing any redness around incision sites or discharge. 7.Avoid constipation 8.Cessation of smoking. Attestations Medical Necessity Statement*: Observation status for wound debridement and postoperative pain control Time Spent in Patient Care*: less than 30 min Time Spent in Smoking Cessation: Time spent discussing smoking cessation with patient: 3 to 10 minutes Specific Discharge Activities: Specific discharge activities: educating patient and educating and/or supporting family/caregiver Status at Discharge: Cognitive status at discharge: cognitively intact , Behavioral status at discharge: cooperative , Functional status at discharge: independent ambulation Overall status at discharge: patient is progressing back to baseline Quality Metrics Clinical Quality Measures: During this hospital stay, did patient experience: None Coding Level of Care Code Acute Field Services Manager for [employer] Fwd Diagnoses Dog bite of extremity
--- NOTE | 2020-11-04 10:48 | PC.RESP ---
Smoking Cessation information sent to patient.
== END 2020-10-31 16:00 | disposition home or self-care (01) ==
PROVIDERS: Admitting Provider Surgery; PCP Family Medicine Adult Medicine; Visit Provider Surgery
PROC: (CPT 11042; principal; 2020-10-31 09:40)
DX: S81.851A Open bite, right lower leg, initial encounter (principal); S71.151A Open bite, right thigh, initial encounter; W54.0XXA Bitten by dog, initial encounter; J44.9 Chronic obstructive pulmonary disease, unspecified; I10 Essential (primary) hypertension; F41.9 Anxiety disorder, unspecified; Z86.73 Personal history of transient ischemic attack (TIA), and cerebral infarction without residual deficits; F17.210 Nicotine dependence, cigarettes, uncomplicated
CPT/HCPCS: 11042; 11043; 11046 ×5; 80053; 85025; 87070; 87176; 87205; 88309; 96365; G0378; G0379; J1100; J2250; J2405; J2704; J3010; J3370; J7030; J7050

== ENCOUNTER 2020-11-06 14:00 | Outpatient (CLI) | payer OTHER, MEDICAID, SELFPAY | END 2020-11-06 14:01 | disposition home or self-care (01) | LOC: WOUND 14:00 | PROVIDERS: PCP Family Medicine Adult Medicine; Visit Provider Surgery | DX: T81.89XA Other complications of procedures, not elsewhere classified, initial encounter (principal); Y83.8 Other surgical procedures as the cause of abnormal reaction of the patient, or of later complication, without mention of misadventure at the time of the procedure; F17.210 Nicotine dependence, cigarettes, uncomplicated | CPT/HCPCS: 11042; 11045 ==

== ENCOUNTER 2020-11-13 14:36 | Outpatient (CLI) | payer OTHER, MEDICAID, SELFPAY | END 2020-11-13 14:37 | disposition home or self-care (01) | LOC: WOUND 14:38 | PROVIDERS: PCP Family Medicine Adult Medicine; Visit Provider Surgery | DX: I87.2 Venous insufficiency (chronic) (peripheral) (principal); L97.812 Non-pressure chronic ulcer of other part of right lower leg with fat layer exposed; T81.89XA Other complications of procedures, not elsewhere classified, initial encounter; Y83.8 Other surgical procedures as the cause of abnormal reaction of the patient, or of later complication, without mention of misadventure at the time of the procedure; F17.210 Nicotine dependence, cigarettes, uncomplicated | CPT/HCPCS: 11042; 11043; 11045; 97606 ==

== ENCOUNTER 2020-11-20 13:48 | Outpatient (CLI) | payer OTHER, MEDICAID, SELFPAY | END 2020-11-20 13:49 | disposition home or self-care (01) | LOC: WOUND 13:50 | PROVIDERS: PCP Family Medicine Adult Medicine; Visit Provider Surgery | DX: T81.89XA Other complications of procedures, not elsewhere classified, initial encounter (principal); Y83.8 Other surgical procedures as the cause of abnormal reaction of the patient, or of later complication, without mention of misadventure at the time of the procedure; L97.812 Non-pressure chronic ulcer of other part of right lower leg with fat layer exposed; F17.210 Nicotine dependence, cigarettes, uncomplicated | CPT/HCPCS: 11042; 11045; 97605 ==

== ENCOUNTER 2020-11-27 06:58 | Observation (INO) | payer OTHER, MEDICAID, SELFPAY ==
[2020-11-27] VITALS (7 sets, daily range): BP systolic 128–180; BP diastolic 41–111; PULSE 86–142; RESP 16–30; TEMP 36.4; O2SAT 96–99; BMI 29.6
--- NOTE | 2020-11-27 07:51 | ECG_ITS ---
[facility] Test Date: 2020-11-27 Pat Name: Hortensia Lanier Department: Room: Gender: Female Dress Operator: : 1965 Requested By: Alonso Blount Order Number: [id number] Nereida MD: Levar Guzmán M.D. Measurements Intervals [place] Rate: 111 P: 62 SC: 138 QRS: 40 QRSD: 98 T: 47 QT: 325 QTc: 443 Interpretive Statements SINUS TACHYCARDIA POSSIBLE LEFT ATRIAL ENLARGEMENT [-0.1mV P-WAVE IN V1/V2] MODERATE ST DEPRESSION [0.05+ mV ST DEPRESSION] No previous ECG available for comparison Electronically Signed On 11-27-2020 13:05:54 CDT by Levar Guzmán M.D. [id number]
--- NOTE | 2020-11-27 07:51 | W.ED.GENADLT ---
HPI - General Adult General: Chief complaint: General Medical Stated complaint: N/V/D, dizzy, weak Time Seen by Provider: 11/27/20 07:25 History of Present Illness: HPI narrative: Patient a 55-year-old female w/ multiple healing wounds from prior pitbull attack on wound vac followed by Dr. Rachel presented to the emergency room with complaints with nausea/vomiting, and watery diarrhea x3 days. Patient denies any recent antibiotic use, recent travel, or family with similar symptoms. In addition denies any fever/chills, abdominal pain, melena or hematochezia. Denies any prior abdominal surgery. 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 This onset of symptoms, patient has very little decreased p.o. intake. Patient was only able to tolerate liquid. Onset:3 days ago Duration:3 days Location:home Severity:moderate Review of Systems Narrative: Constitutional: No fever, no chills. HEENT: No vision changes CV: No chest pain, no palpitations PULM: no cough, no dyspnea. GI: No abdominal pain, +N/+V/+D. +decreased PO intake : No dysuria MSKEL: No muscle pain SKIN: No new rashes, no lesions. NEURO: No headache, no focal weakness. HEME: No visible bruises PSYCH: Normal mood PFSH ED PFSH: Medical History (Updated 11/28/20 @ 00:01 by ) Allergic rhinitis due to allergen Anxiety about health Cellulitis of right thigh Dog bite of extremity Hypertension Lumbosacral strain Porokeratosis PVD (peripheral vascular disease) with claudication Stroke Surgical History (Updated 11/27/20 @ 15:09 by Luis May MD) History of appendectomy Social History Smoking and tobacco status: current every day smoker cigarettes Packs smoked per day: 0.75 Second hand smoke exposure: Yes Alcohol intake: never Current occupational status: employed Physical Exam Narrative: EXAM NARRATIVE: Head: Atraumatic Eyes: PERRL, conjunctiva without injection ENT: Dry membrane moist NECK: Supple, ROM intact LUNGS: LCTAB, no crackles/rhonchi CV: Sinus tachycardia ABDOMEN: Soft, no guarding or rebound tenderness, no Colin sign, +mild epigastric tenderness to palpation EXTREMITY: Normal ROM SKIN: L thigh wound vac, L lower leg wound well granulating NEURO: Awake and alert, no focal motor deficits PSYCH: Normal mood and affect Course Vital Signs: Vital signs: Vital Signs Temperature 97.5 F L 11/27/20 07:26 Pulse Rate 87 11/27/20 15:53 Respiratory Rate 18 11/27/20 15:53 Blood Pressure 156/90 11/27/20 15:53 Pulse Oximetry 97 11/27/20 15:53 MDM - General Adult MDM Narrative: Medical decision making narrative: 55-year-old female presenting to emergency room with complaints of nausea vomiting diarrhea. On exam, patient on arrival appears to be dry and tachycardic to the 130s. Rest of vitals within normal limit. Patient has no focal abdominal tenderness to palpation. White count noted to be 16.3. CT abdomen pelvis did not show any acute finding. Patient is noted to have T bili elevation, AST ALT and alk phos elevation. Bladder x-ray did not show any signs of acute biliary pathology. Patient received 2 L for, Zofran, and reports symptomatic improvement. At this time, I do not suspect acute intra-abdominal pathology including SBO, surgical abdomen, appendicitis, diverticulitis, pancreatitis, cystitis, pyelonephritis, or acute [employer] pathology. CT abd+pelvis did not show any focal findings. Right upper quadrant is negative. Patient is noted to have AST/ALT and T bili elevation at this time. Covid antigen could not be sent given lack of availability. Pending PCR at this time. Patient continues to have vomiting despite multiple trials of Zofran and p.o. challenge. Disposition: Admission Lab Data: Labs: Lab Results 11/27/20 11/27/20 11/27/20 Range/Units 07:39 07:39 07:39 WBC 16.3 H (4.0-10.0) 10^3/ uL RBC 5.72 H (4.1-5.3) 10^6/u L Hgb 17.8 H (11.5-15.3) g/dL Hct 51.7 H (37.0-47.0) % MCV 90.4 (81-99) fl MCH 31.1 (28.0-34.0) pg MCHC 34.4 (30.0-36.0) g/dL RDW 12.3 (12.1-15.1) % Plt Count 513 H (130-400) 10^3/c mm MPV 10.2 (7.4-10.4) fL Neut % (Auto) 78.0 % Lymph % (Auto) 11.1 % [place] % (Auto) 10.3 % Eos % (Auto) 0.0 % Baso % (Auto) 0.2 % Neut # (Auto) 12.70 H (1.8-7.7) 10^3/u L Lymph # (Auto) 1.8 (0.8-4.8) 10^3/u L [place] # (Auto) 1.7 H (0.2-0.9) 10^3/u L Eos # (Auto) 0.0 (0.0-0.8) 10^3/u L Baso # (Auto) 0.0 (0.0-0.1) 10^3/u L Nucleated RBC % (a uto) 0 % Nucleated RBCs # 0.0 /100WBC Sodium 135 L (136-145) mmol/L Potassium 3.5 (3.5-5.1) mmol/L Chloride 90 L (98-107) mmol/L Carbon Dioxide 26 (22-29) mmol/L Anion Gap 22.5 H (5-19) BUN 32 H (6-20) mg/dL Creatinine 0.9 (0.5-0.9) mg/dL GFR Calculation 65.0 L (90-130) mL/min Glucose 150 H (65-115) mg/dL Calculated Osmolal ity 290 (285-295) mOsm/k g Lactate (0.5-2.2) mmol/L Calcium 10.1 (8.5-10.5) mg/dL Total Bilirubin 1.6 H (0.15-1.2) mg/dL Direct Bilirubin 0.60 H (0.00-0.30) mg/d L AST 90 H (0-32) U/L ALT 89 H (0-33) U/L Alkaline Phosphata se 145 H (35-105) IU/L Troponin T Gen 5 n g/L (0-10) ng/L Total Protein 8.5 (6.6-8.7) g/dL Albumin 4.6 (3.5-5.2) g/dL Globulin 3.9 (1.3-4.6) g/dL Lipase 37 (13-60) U/L Urine Color (Yellow) Urine Appearance (CLEAR) Urine pH (5-7) Ur Specific Gravit y (1.005-1.030) Urine Protein (Negative) Urine Glucose (UA) (Normal) Urine Ketones (Negative) Urine Blood (Negative) Urine Nitrate (Negative) Urine Bilirubin (Negative) Urine Urobilinogen (Negative) mg/dL Ur Leukocyte Myra ase (Negative) Urine RBC (0-2) /hpf Urine WBC (0-5) /hpf Ur Squamous Epith Cells (0-5) /hpf Amorphous Sediment Urine Bacteria (NONE) /hpf Urine Mucus /hpf 11/27/20 11/27/20 11/27/20 Range/Units 07:39 09:04 09:30 WBC (4.0-10.0) 10^3/ uL RBC (4.1-5.3) 10^6/u L Hgb (11.5-15.3) g/dL Hct (37.0-47.0) % MCV (81-99) fl MCH (28.0-34.0) pg MCHC (30.0-36.0) g/dL RDW (12.1-15.1) % Plt Count (130-400) 10^3/c mm MPV (7.4-10.4) fL Neut % (Auto) % Lymph % (Auto) % [place] % (Auto) % Eos % (Auto) % Baso % (Auto) % Neut # (Auto) (1.8-7.7) 10^3/u L Lymph # (Auto) (0.8-4.8) 10^3/u L [place] # (Auto) (0.2-0.9) 10^3/u L Eos # (Auto) (0.0-0.8) 10^3/u L Baso # (Auto) (0.0-0.1) 10^3/u L Nucleated RBC % (a uto) % Nucleated RBCs # /100WBC Sodium (136-145) mmol/L Potassium (3.5-5.1) mmol/L Chloride (98-107) mmol/L Carbon Dioxide (22-29) mmol/L Anion Gap (5-19) BUN (6-20) mg/dL Creatinine (0.5-0.9) mg/dL GFR Calculation (90-130) mL/min Glucose (65-115) mg/dL Calculated Osmolal ity (285-295) mOsm/k g Lactate 2.3 H (0.5-2.2) mmol/L Calcium (8.5-10.5) mg/dL Total Bilirubin (0.15-1.2) mg/dL Direct Bilirubin (0.00-0.30) mg/d L AST (0-32) U/L ALT (0-33) U/L Alkaline Phosphata se (35-105) IU/L Troponin T Gen 5 n g/L 8 (0-10) ng/L Total Protein (6.6-8.7) g/dL Albumin (3.5-5.2) g/dL Globulin (1.3-4.6) g/dL Lipase (13-60) U/L Urine Color [place] (Yellow) Urine Appearance Clear (CLEAR) Urine pH 7 (5-7) Ur Specific Gravit y 1.010 (1.005-1.030) Urine Protein Trace (Negative) Urine Glucose (UA) Norm (Normal) Urine Ketones Negative (Negative) Urine Blood Trace H (Negative) Urine Nitrate Negative (Negative) Urine Bilirubin 1+ H (Negative) Urine Urobilinogen 1 H (Negative) mg/dL Ur Leukocyte Myra ase Negative (Negative) Urine RBC 0-4 H (0-2) /hpf Urine WBC None (0-5) /hpf Ur Squamous Epith Cells 15-25 H (0-5) /hpf Amorphous Sediment Not Reportable Urine Bacteria 1+ H (NONE) /hpf Urine Mucus 1+ /hpf Imaging Data^: Other Imaging: Radiologist's impression: [address] [id number] Scan ReportSigned Patient: Hortensia Lanier #: [id number]: 1965Acct#:[id number]/Sex: 55 / FADM Date: 11/27/20Loc: ERRoom/Bed:Attending Dr: Ordering Provider/Ordering MD: Alonso Blount MD Date of Service: 11/27/20 Procedure(s): CT abdomen pelvis w con* [id number] Accession Number(s): [id number] Report Number: [id number] WS: [id number] CT ABDOMEN AND PELVIS WITH CONTRAST HISTORY: likely enterocolitis, rule out other pathologies TECHNIQUE: Imaging performed of the abdomen and pelvis with IV contrast. Single phase imaging of the abdomen. Coronal and sagittal reformats are submitted. All CT scans at [facility] use at least one of these dose optimization techniques: automated exposure control; mA and/or kV adjustment per patient size (includes targeted exams where dose is matched to clinical indication); or iterative reconstruction. IV CONTRAST: Omnipaque 300; 95 mL IV. Oral contrast: No DLP: 1656.29 mGy.cm COMPARISON: None available. Lower thorax: Lung bases are clear. Heart is normal size. Mild thickening of the distal esophagus and small hiatal hernia. Liver/biliary system: Mildly enlarged liver. There is very tiny scattered hypodense nodules in the periphery of the liver which cannot be characterized further. Hepatic steatosis along the falciform ligament. Normal portal vein. Gallbladder: Normal. No gallstones or wall thickening. No pericholecystic fluid. Pancreas: Normal size pancreas and pancreatic duct. No adjacent inflammation. Spleen: Normal size spleen. No mass or infarct. Adrenal glands: Normal. Right kidney: Normal. Left kidney: Normal. Aorta: Mild atherosclerosis with no aneurysm. Lymphadenopathy: None. Free fluid: None. GI tract: Prior appendectomy. No GI tract obstruction. No mucosal thickening or edema. No diverticular disease. Abdominal wall: Fat containing umbilical hernia. Pelvis: Uterus and ovaries are negative. No adenopathy or fluid. Normal bladder. Bones: Mild LEFT curvature lumbar spine. CT/CT abdomen pelvis w con* [id number] IMPRESSION: 1. No acute abdominal or pelvic abnormalities are identified. 2. Prior appendectomy. 3. No ascites or mass. 4. Scattered 2 mm hypodense areas in the liver too small to characterize. These may be small cysts. Early metastatic lesions not excluded. Dictated By:Milka Esposito DOSigned By:Milka Esposito DOSigned Date/Time:11/27/20 0902DD/ 0857 Discharge Plan Discharge Patient Disposition: Home Clinical Impression: Nausea & vomiting, Diarrhea Condition: Stable Discharge Orders: Discharge Order (Routine); Ordered 11/27/20 Ordered By: Luis May Discharge Diet: Advance as tolerated Discharge Activity: Resume usual activity Coding Level of Care Code ED Recruitment Director for Mattie Javed
[2020-11-27 08:01] LABS: Basophils % 0.2 %; Hematocrit 51.7 % (37.0-47.0); Hemoglobin 17.8 g/dL (11.5-15.3); Lymphocytes # 1.8 10^3/uL (0.8-4.8); Lymphocytes % 11.1 %; Mean Corpuscular HGB Conc 34.4 g/dL (30.0-36.0); Mean Corpuscular Hemoglobin 31.1 pg (28.0-34.0); Mean Corpuscular Volume 90.4 fl (81-99); Mean Platelet Volume 10.2 fL (7.4-10.4); Monocytes # 1.7 10^3/uL (0.2-0.9); Monocytes % 10.3 %; Nucleated Red Blood Cells % 0 %; Platelet Count 513 10^3/cmm (130-400); Red Blood Count 5.72 10^6/uL (4.1-5.3); Red Cell Distribution Width 12.3 % (12.1-15.1); White Blood Count 16.3 10^3/uL (4.0-10.0)
--- NOTE | 2020-11-27 08:09 | CT_ITS ---
WS: [id number] CT ABDOMEN AND PELVIS WITH CONTRAST HISTORY: likely enterocolitis, rule out other pathologies TECHNIQUE: Imaging performed of the abdomen and pelvis with IV contrast. Single phase imaging of the abdomen. Coronal and sagittal reformats are submitted. All CT scans at [facility] use at least one of these dose optimization techniques: automated exposure control; mA and/or kV adjustment per patient size (includes targeted exams where dose is matched to clinical indication); or iterativ e reconstruction. IV CONTRAST: Omnipaque 300; 95 mL IV. Oral contrast: No DLP: 1656.29 mGy.cm COMPARISON: None available. Lower thorax: Lung bases are clear. Heart is normal size. Mild thickening of the distal esophagus and small hiatal hernia. Liver/biliary system: Mildly enlarged liver. There is very tiny scattered hypodense nodules in the pe riphery of the liver which cannot be characterized further. Hepatic steatosis along the falciform lig ament. Normal portal vein. Gallbladder: Normal. No gallstones or wall thickening. No pericholecystic fluid. Pancreas: Normal size pancreas and pancreatic duct. No adjacent inflammation. Spleen: Normal size spleen. No mass or infarct. Adrenal glands: Normal. Right kidney: Normal. Left kidney: Normal. Aorta: Mild atherosclerosis with no aneurysm. Lymphadenopathy: None. Free fluid: None. GI tract: Prior appendectomy. No GI tract obstruction. No mucosal thickening or edema. No diverticula r disease. Abdominal wall: Fat containing umbilical hernia. Pelvis: Uterus and ovaries are negative. No adenopathy or fluid. Normal bladder. Bones: Mild LEFT curvature lumbar spine. CT/CT abdomen pelvis w con* [id number] IMPRESSION: 1. No acute abdominal or pelvic abnormalities are identified. 2. Prior appendectomy. 3. No ascites or mass. 4. Scattered 2 mm hypodense areas in the liver too small to characterize. Thes e may be small cysts. Early metastatic lesions not excluded.
[2020-11-27] MEDS: ondansetron 2 mg/ML SDV 2 mL 4 MG IVP (08:11)
[2020-11-27] MEDS: sodium chloride 0.9% 1,000 ML 999 ML IV ×2 (08:12)
[2020-11-27 08:24] LABS: Alanine Aminotransferase 89 U/L (0-33); Albumin Level 4.6 g/dL (3.5-5.2); Alkaline Phosphatase 145 IU/L (35-105); Blood Urea Nitrogen 32 mg/dL (6-20); Calcium 10.1 mg/dL (8.5-10.5); Carbon Dioxide 26 mmol/L (22-29); Chloride 90 mmol/L (98-107); Globulin 3.9 g/dL (1.3-4.6); Glucose 150 mg/dL (65-115); Lipase 37 U/L (13-60); Osmolality Calculated 290 mOsm/kg (285-295); Sodium 135 mmol/L (136-145); Total Bilirubin 1.6 mg/dL (0.15-1.2); Total Protein 8.5 g/dL (6.6-8.7)
[2020-11-27 08:30] LABS: Anion Gap 22.5 (5-19); Aspartate Amino Transferase 90 U/L (0-32); Potassium 3.5 mmol/L (3.5-5.1)
[2020-11-27] MEDS: iohexol 300 mg/mL 100 mL Btl IV (08:43)
--- NOTE | 2020-11-27 09:02 | PC.PHAR ---
pt states she takes care of her own medications-pt states she is still taking the lisinopril and sertraline adams last filled on 08/07/20 30d/s-pt states she normally takes 325mg aspirin qam pt states yesterday she was hurting so she took 650mg of aspirin-
--- NOTE | 2020-11-27 09:15 | US_ITS ---
WS: [id number] RIGHT UPPER QUADRANT ULTRASOUND HISTORY: t bili elevation, RUQ pain COMPARISON: None available. Liver: 14.8 cm in length. Normal size liver. Moderate coarse echotexture throughout the liver. No mas s or bile duct dilatation although the entire liver is not well visualized. Gallbladder: Normally distended gallbladder with no stones or wall thickening. CBD: 0.4 cm Pancreas: Not seen. Completely obscured by bowel gas. Right kidney: 10.7 cm in length. Normal size and echogenicity. No hydronephrosis or mass. Aorta and IVC: Unremarkable abdominal aorta and IVC. No ascites. US/US gall bladder [id number] IMPRESSION: 1. Normal gallbladder. 2. Moderate hepatic steatosis. No bile duct dilatation.
[2020-11-27 09:42] LABS: Add Urine Microscopic? YES; Bilirubin Urine 1+ (Negative); Blood Urine Trace (Negative); Glucose Urine UA Norm (Normal); Ketones Urine Negative (Negative); Leukocyte Esterase Urine Negative (Negative); Nitrate Urine Negative (Negative); Protein Urine Trace (Negative); Urine Appearance Clear (CLEAR); Urine Color Orange (Yellow); Urobilinogen Urine 1 mg/dL (Negative); pH Urine 7 (5-7)
[2020-11-27 09:52] LABS: RBC Urine 0-4 /hpf (0-2); Squamous Epithelial Cell Urine 15-25 /hpf (0-5)
[2020-11-27 09:53] LABS: Add Urine Culture? No; Bacteria Urine 1+ /hpf; Mucus Urine 1+ /hpf
[2020-11-27 09:57] LABS: Lactate (Lactic Acid level) 2.3 mmol/L (0.5-2.2)
[2020-11-27] MEDS: alum-mag-hydroxide-sime 30 mL UDC PO (10:28)
[2020-11-27] MEDS: metoclopramide 5 mg/mL SDV 2 mL IVP (10:28)
[2020-11-27] MEDS: famotidine 20 mg/2 mL INJ IVP (10:28)
[2020-11-27] MEDS: lisinopril 10 mg Tablet 20 MG PO (11:28)
--- NOTE | 2020-11-27 11:53 | ECG_ITS ---
[facility] Test Date: 2020-11-27 Pat Name: Hortensia Lanier Department: Room: Gender: Female System Admin: : 1965 Requested By: Luis Morin Order Number: [id number] Nereida MD: Luis Jain M.D. Measurements Intervals Imogene Rate: 88 P: 57 IA: 158 QRS: 44 QRSD: 97 T: 10 QT: 377 QTc: 458 Interpretive Statements SINUS RHYTHM NONSPECIFIC T-WAVE ABNORMALITY INTERPRETATION BASED ON A DEFAULT AGE OF 40 YEARS Compared to ECG 11/27/2020 07:56:50 T-wave abnormality now present Sinus tachycardia no longer present ST (T wave) deviation no longer present Electronically Signed On 11-27-2020 18:03:19 CDT by Luis Jain M.D. [email or web address]
[2020-11-27 12:12] LABS: Troponin T (5th) Once 8 ng/L (0-10)
[2020-11-27 12:39] LABS: Lactate (Lactic Acid level) 1.9 mmol/L (0.5-2.2)
--- NOTE | 2020-11-27 13:31 | PC.NURSE ---
clear liq snack given to patient
--- NOTE | 2020-11-27 14:38 | PC.NURSE ---
patient denied any nausea or pain at this time.
--- NOTE | 2020-11-27 15:07 | P.HP_ITS ---
Providers/Chief Complaint Admitting Physician: Luis May MD Primary Care Provider: Monster Grigsby MD Chief Complaint: N/V/D, dizzy, weak History of Present Illness Hortensia Lanier is a 55 year old female who presented to the emergency department with complaints of nausea and vomiting. She had one loose stool this morning. No fever. Denied any blood or black or tarry stool. Reported she had some epigastric pain after vomiting for a while. No blood in emesis, or c offee-ground emesis. Feeling a little bit better already. Not for sure if she can keep p.o. liquids down. No ill contacts that she can remember. Denies any marijuana use in the last week or 2. No dysuria or difficulty urinating. Has not had these symptoms before. No ill family members. Currently being seen at wound care clinic secondary to dog bite. Both on right lower extremity. Wound VAC in place. Review of Systems General: Reports: 10 or more systems reviewed and unremarkable except in HPI and below Const: Denies: fever(s) or chills Eyes: Denies: change in vision ENMT: Denies: throat pain Card: Denies: chest pain Resp: Denies: dyspnea GI: Reports: abdominal pain, nausea and vomiting : Denies: flank pain Musc: Denies: neck pain Skin/Breast: Denies: rash Neuro: Denies: headache(s) Psych: Denies: anxiety Endo: Denies: polyuria Paul/Lymph: Denies: easy bruising All/Imm: Denies: urticaria Medications/Allergies Home Medications Medication Instructions Recorded Confirmed Last Taken Type cetirizine [Allergy Relief 10 mg PO DAILY PRN 10/31/20 11/27/20 Unknown History (cetirizine)] lisinopril 20 mg PO QAM 10/31/20 11/27/20 11/24/20 History sertraline 100 mg PO QAM 10/31/20 11/27/20 11/24/20 History aspirin 325 mg PO DAILY 11/27/20 11/27/20 11/26/20 History 650 mg calcium carbonate-simethicone 1 tab PO TID PRN 5 Days #15 tab 11/27/20 Unknown Rx [Maalox Advanced] ondansetron HCl [Zofran] 4 mg PO TID PRN 3 Days #9 tab 11/27/20 Unknown Rx pantoprazole [Protonix] 40 mg PO DAILY #14 tab 11/27/20 Unknown Rx Allergies Allergy/AdvReac Type Severity Reaction Status Date / Time No Known Allergies Allergy Unverified 11/27/20 08:14 PFSH Acute PFSH: Medical History Allergic rhinitis due to allergen Anxiety about health Cellulitis of right thigh Dog bite of extremity Hypertension Lumbosacral strain Porokeratosis PVD (peripheral vascular disease) with claudication Stroke Surgical History (Updated 11/27/20 @ 15:09 by Luis May MD) History of appendectomy Social History Smoking and tobacco status: current every day smoker cigarettes Packs smoked per day: 0.75 Second hand smoke exposure: Yes Alcohol intake: never Current occupational status: employed Vitals/I&O/Wt Last Vital Signs Temp 97.5 F L 11/27/20 07:26 Pulse 89 11/27/20 14:37 Resp 18 11/27/20 14:37 BP 128/41 11/27/20 14:37 Pulse Ox 99 11/27/20 14:37 11/27/20 11/27/20 11/27/20 06:59 14:59 22:59 Intake Total 1000 / 1000 Balance 1000 / 1000 Weight last 48 hrs Weight 89.811 kg Physical Exam Narrative: EXAM NARRATIVE: Female in no apparent distress HEENT: Atraumatic normocephalic. Pupils equally round. Oropharynx clear. Neck is supple no lymphadenopathy or thyromegaly Cardiovascular regular rate and rhythm without murmur Lungs clear no wheezing or crackles Abdomen is soft with positive bowel sounds. Slight tenderness epigastric area. No obvious hepatosplenomegaly. exam is deferred Extremities no cyanosis clubbing or edema, cap refill brisk Skin no rash Neuro no focal deficits. Data : 11/27/20 07:39 11/27/20 07:39 Other data: Lactate elevated at 2.3 and repeat is 1.9 Total bili 1.6, direct 0.6, AST 90, ALT 89, alk phos 145, albumin 4.6, lipase 37 Urinalysis 0-4 reds no whites 15-25 squamous Gallbladder ultrasound and CT abdomen and pelvis without specific findings other than fatty liver. CT scan demonstrated scattered hypodense areas in the liver too early to characterize. Will need follow-up in the future. EKG initially demonstrated sinus tachycardia nonspecific T wave changes. Repeat EKG demonstrates a heart rate of 88, normal axis, nonspecific changes. A&P Assessment and plan (1) Nausea & vomiting: Etiology uncertain Associated with transaminitis I have sent a troponin, hepatitis panel, and a Covid PCR Hydration Protonix Clear liquids advance as tolerated Hydration Status: Acute Additional A&P Information Peripheral vascular disease History of CVA History of hypertension Full code We'll likely place on Lovenox for DVT prophylaxis. Attestations Medical Necessity Statement*: Will need less than 2 midnight stay for sarkis luation and treatment of vomiting Time Spent in Patient Care: Greater than 35 minutes Coding Level of Care Code Acute Operations Accountant for Chg Fwd Diagnoses Nausea & vomiting R11.2
--- NOTE | 2020-11-27 15:14 | P.DS_ITS ---
Discharge Providers Date of Admission: 11/27/20 10:53 Date of Discharge: November 27, 2020 Attending Provider at Admission: Luis May MD Attending Provider at Discharge: Luis May MD Primary Care Provider: Monster Grigsby MD Diagnoses at Discharge Discharge Diagnosis (1) Nausea & vomiting: Status: Acute Reason for Visit Reason for Visit: N/V/D, dizzy, weak Hospital Course Hospital Course I saw the patient earlier in the morning. During the process of being in the emergency department awaiting admission patient's clinical status improved. Nursing called me and reported the patient was asking for discharge. She was tolerating clear liquids without difficulty. Abdomen was no longer painful. Troponin had been checked and negligible. Patient had been having symptoms for 24 to 36 hours at that point when it was drawn. Considering her improvement it was thought reasonable to discharge her home. I asked that she follow-up with her primary care provider early next week. She will take Protonix 40 mg a day. Avoid all anti-inflammatories. Initiate clear liquids and advance slowly using a BRAT diet. She should return to the emergency department for any concerns. On follow-up with primary care provider Amanda PCR, hepatitis panel are pending as well as her CT which is abnormal should be discussed as she had multiple hypodense lesions noted in her liver. Patient understood discharge instructions that I gave her personally and reported she would follow-up. Physical Exam Narrative: EXAM NARRATIVE: See exam done earlier today. Repeat exam no abdominal discomfort. Discharge Data Data Completed and Pending: Completed Studies During Hospitalization Category Date Time Status CT abdomen pelvis w con* [id number] Urge nt Cat Scan 11/27/20 08:09 Completed US gall bladder 7 [id number] Urgent Ultrasound 11/27/20 09:15 Completed Pending at discharge Category Date Time Status Hepatitis Acute P connie Routine Lab 11/27/20 14:53 Ordered [facility] SARS-CoV-2 RNA Routine Lab 11/27/20 11:09 Received Labs from last 24 hours 11/27/20 11/27/20 11/27/20 12:10 11:09 09:30 WBC RBC Hgb Hct MCV MCH MCHC RDW Plt Count MPV Neut % (Auto) Lymph % (Auto) Caroline % (Auto) Eos % (Auto) Baso % (Auto) Neut # (Auto) Lymph # (Auto) Caroline # (Auto) Eos # (Auto) Baso # (Auto) Nucleated RBC % (a uto) Nucleated RBCs # Sodium Potassium Chloride Carbon Dioxide Anion Gap BUN Creatinine GFR Calculation Glucose Calculated Osmolal ity Lactate 1.9 2.3 H Calcium Total Bilirubin Direct Bilirubin AST ALT Alkaline Phosphata se Troponin T Gen 5 n g/L Total Protein Albumin Globulin Lipase Urine Color Urine Appearance Urine pH Ur Specific Gravit y Urine Protein Urine Glucose (UA) Urine Ketones Urine Blood Urine Nitrate Urine Bilirubin Urine Urobilinogen Ur Leukocyte Myra ase Urine RBC Urine WBC Ur Squamous Epith Cells Amorphous Sediment Urine Bacteria Urine Mucus SARS-CoV-2 RNA (RT -PCR) Pending 11/27/20 11/27/20 11/27/20 09:04 07:39 07:39 WBC RBC Hgb Hct MCV MCH MCHC RDW Plt Count MPV Neut % (Auto) Lymph % (Auto) Caroline % (Auto) Eos % (Auto) Baso % (Auto) Neut # (Auto) Lymph # (Auto) Caroline # (Auto) Eos # (Auto) Baso # (Auto) Nucleated RBC % (a uto) Nucleated RBCs # Sodium Potassium Chloride Carbon Dioxide Anion Gap BUN Creatinine GFR Calculation Glucose Calculated Osmolal ity Lactate Calcium Total Bilirubin Direct Bilirubin 0.60 H AST ALT Alkaline Phosphata se Troponin T Gen 5 n g/L 8 Total Protein Albumin Globulin Lipase Urine Color [place] Urine Appearance Clear Urine pH 7 Ur Specific Gravit y 1.010 Urine Protein Trace Urine Glucose (UA) Norm Urine Ketones Negative Urine Blood Trace H Urine Nitrate Negative Urine Bilirubin 1+ H Urine Urobilinogen 1 H Ur Leukocyte Myra ase Negative Urine RBC 0-4 H Urine WBC None Ur Squamous Epith Cells 15-25 H Amorphous Sediment Not Reportable Urine Bacteria 1+ H Urine Mucus 1+ SARS-CoV-2 RNA (RT -PCR) 11/27/20 11/27/20 07:39 07:39 WBC 16.3 H RBC 5.72 H Hgb 17.8 H Hct 51.7 H MCV 90.4 MCH 31.1 MCHC 34.4 RDW 12.3 Plt Count 513 H MPV 10.2 Neut % (Auto) 78.0 Lymph % (Auto) 11.1 Caroline % (Auto) 10.3 Eos % (Auto) 0.0 Baso % (Auto) 0.2 Neut # (Auto) 12.70 H Lymph # (Auto) 1.8 Caroline # (Auto) 1.7 H Eos # (Auto) 0.0 Baso # (Auto) 0.0 Nucleated RBC % (a uto) 0 Nucleated RBCs # 0.0 Sodium 135 L Potassium 3.5 Chloride 90 L Carbon Dioxide 26 Anion Gap 22.5 H BUN 32 H Creatinine 0.9 GFR Calculation 65.0 L Glucose 150 H Calculated Osmolal ity 290 Lactate Calcium 10.1 Total Bilirubin 1.6 H Direct Bilirubin AST 90 H ALT 89 H Alkaline Phosphata se 145 H Troponin T Gen 5 n g/L Total Protein 8.5 Albumin 4.6 Globulin 3.9 Lipase 37 Urine Color Urine Appearance Urine pH Ur Specific Gravit y Urine Protein Urine Glucose (UA) Urine Ketones Urine Blood Urine Nitrate Urine Bilirubin Urine Urobilinogen Ur Leukocyte Myra ase Urine RBC Urine WBC Ur Squamous Epith Cells Amorphous Sediment Urine Bacteria Urine Mucus SARS-CoV-2 RNA (RT -PCR) Vitals: Last Vital Signs Temp 97.5 F L 11/27/20 07:26 Pulse 89 11/27/20 14:37 Resp 18 11/27/20 14:37 BP 128/41 11/27/20 14:37 Pulse Ox 99 11/27/20 14:37 Discharge Plan Discharge Patient Disposition: Home Condition: Stable Prescriptions: New Zofran 4 mg tablet 4 mg PO TID PRN (Reason: nausea and vomiting) 3 Days Qty: 9 RF: 0 Maalox Advanced 1,000-60 mg tablet,chewable 1 tab PO TID PRN (Reason: nausea and vomiting) 5 Days Qty: 15 RF: 0 Protonix 40 mg tablet,delayed release (DR/EC) 40 mg PO DAILY Qty: 14 RF: 0 Continued cetirizine [Allergy Relief (cetirizine)] 10 mg Tablet 10 mg PO DAILY PRN (Reason: Allergy Symptoms) RF: 0 lisinopril 20 mg tablet 20 mg PO QAM RF: 0 sertraline 100 mg tablet 100 mg PO QAM RF: 0 aspirin 325 mg Tablet 325 mg PO DAILY RF: 0 Discharge Orders: Discharge Order (Routine); Ordered 11/27/20 Ordered By: Luis May Referrals: Monster Grigsby MD [Primary Care Provider] - 1-3 days (Follow-up of ER visit for nausea, increased LFTs. Laboratory pending includes hepatitis panel, Covid PCR.) Discharge Diet: Advance as tolerated Discharge Activity: Resume usual activity Patient Instructions: Gastroenteritis (ED), Opioid Safety Activity Restrictions/Additional Instructions: Follow-up with your primary care doctor for evaluation of some lab abnormality including total bilirubin, AST/ALT and alk phos. Come back to the emergency room if you can't hold any thing down, if any fever or chills, if the have any abdominal pain Discharge Attestations Time Spent in Discharge Care*: greater than 30 min Status at Discharge: Cognitive status at discharge: cognitively intact , Behavioral status at discharge: cooperative , Quality Metrics Clinical Quality Measures During this hospital stay, did patient experience: None Coding Level of Care Code Acute Chg FW DC note Diagnoses Nausea & vomiting R11.2
--- NOTE | 2020-11-27 15:17 | PC.NURSE ---
dressing applied to right lower leg. no drainage noted, patient tolerated well.
--- NOTE | 2020-11-27 15:58 | PC.NURSE ---
dressing dry and intact, wound vac intact, patient denied any pain, ambulated without difficulty
[2020-11-27 16:06] LABS: Hepatitis A Antibody IgM Non-Reactive (Nonreactive); Hepatitis B Core IgM Non-Reactive (Nonreactive); Hepatitis B Surface Antigen Non-Reactive (Nonreactive); Hepatitis C Virus Antibody Non-Reactive (Nonreactive)
[2020-11-28 19:46] LABS: Quest SARS-CoV-2 RNA NOT DETECTED (NOT DETECTED)
== END 2020-11-27 15:58 | disposition home or self-care (01) ==
LOC: ER 10:06 → ER IP 15:03
PROVIDERS: Admitting Provider Internal Medicine; Emergency Provider Emergency Medicine; PCP Family Medicine Adult Medicine; Visit Provider Internal Medicine
DX: R11.2 Nausea with vomiting, unspecified (principal); I10 Essential (primary) hypertension; Z86.73 Personal history of transient ischemic attack (TIA), and cerebral infarction without residual deficits; F17.210 Nicotine dependence, cigarettes, uncomplicated
CPT/HCPCS: 74177; 76705; 80053; 80074; 81001; 82248; 83605; 83690; 84484; 85025; 87635; 93005; 96361; 96374; 96375; 99285; G0378; J2405; J2765; J3490; J7030; Q9967

== ENCOUNTER 2020-11-30 09:56 | Outpatient (CLI) | payer OTHER, MEDICAID, SELFPAY ==
--- NOTE | 2020-11-30 18:21 | PC.RESP ---
SMOKING CESSATION INFORMATION SENT TO PATIENT.
== END 2020-11-30 09:57 | disposition home or self-care (01) ==
LOC: WOUND 09:57
PROVIDERS: PCP Family Medicine Adult Medicine; Visit Provider Emergency Medicine
DX: I96 Gangrene, not elsewhere classified (principal); L97.112 Non-pressure chronic ulcer of right thigh with fat layer exposed; L97.812 Non-pressure chronic ulcer of other part of right lower leg with fat layer exposed; F17.210 Nicotine dependence, cigarettes, uncomplicated
CPT/HCPCS: 11042; 11045; 99212

== ENCOUNTER 2020-12-04 14:28 | Outpatient (CLI) | payer OTHER, MEDICAID, SELFPAY | END 2020-12-04 14:29 | disposition home or self-care (01) | LOC: WOUND 14:29 | PROVIDERS: PCP Family Medicine Adult Medicine; Visit Provider Surgery | DX: T81.89XA Other complications of procedures, not elsewhere classified, initial encounter (principal); Y83.8 Other surgical procedures as the cause of abnormal reaction of the patient, or of later complication, without mention of misadventure at the time of the procedure; L97.812 Non-pressure chronic ulcer of other part of right lower leg with fat layer exposed | CPT/HCPCS: 11042; 11045 ==

== ENCOUNTER 2020-12-11 14:39 | Outpatient (CLI) | payer OTHER, MEDICAID, SELFPAY | END 2020-12-11 14:40 | disposition home or self-care (01) | LOC: WOUND 14:40 | PROVIDERS: PCP Family Medicine Adult Medicine; Visit Provider Surgery | DX: T81.89XA Other complications of procedures, not elsewhere classified, initial encounter (principal); Y83.8 Other surgical procedures as the cause of abnormal reaction of the patient, or of later complication, without mention of misadventure at the time of the procedure; L97.812 Non-pressure chronic ulcer of other part of right lower leg with fat layer exposed; F17.210 Nicotine dependence, cigarettes, uncomplicated | CPT/HCPCS: 11042; 11045 ==

== ENCOUNTER 2020-12-18 14:09 | Outpatient (CLI) | payer OTHER, MEDICAID, SELFPAY | END 2020-12-18 14:10 | disposition home or self-care (01) | LOC: WOUND 14:09 | PROVIDERS: PCP Family Medicine Adult Medicine; Visit Provider Surgery | DX: T81.89XA Other complications of procedures, not elsewhere classified, initial encounter (principal); Y83.8 Other surgical procedures as the cause of abnormal reaction of the patient, or of later complication, without mention of misadventure at the time of the procedure; F17.210 Nicotine dependence, cigarettes, uncomplicated | CPT/HCPCS: 11042 ==

== ENCOUNTER 2020-12-25 13:03 | Outpatient (CLI) | payer OTHER, MEDICAID, SELFPAY | END 2020-12-25 13:04 | disposition home or self-care (01) | LOC: WOUND 13:04 | PROVIDERS: PCP Family Medicine Adult Medicine; Visit Provider Surgery | DX: T81.89XA Other complications of procedures, not elsewhere classified, initial encounter (principal); Y83.8 Other surgical procedures as the cause of abnormal reaction of the patient, or of later complication, without mention of misadventure at the time of the procedure; F17.210 Nicotine dependence, cigarettes, uncomplicated | CPT/HCPCS: 11042 ==

== ENCOUNTER 2021-01-01 13:25 | Outpatient (CLI) | payer OTHER, MEDICAID, SELFPAY | END 2021-01-01 13:26 | disposition home or self-care (01) | LOC: WOUND 13:26 | PROVIDERS: PCP Family Medicine Adult Medicine; Visit Provider Nurse Practitioner Family | DX: T81.89XA Other complications of procedures, not elsewhere classified, initial encounter (principal); Y83.8 Other surgical procedures as the cause of abnormal reaction of the patient, or of later complication, without mention of misadventure at the time of the procedure; F17.210 Nicotine dependence, cigarettes, uncomplicated | CPT/HCPCS: 11042 ==

== ENCOUNTER 2021-01-08 13:21 | Outpatient (CLI) | payer OTHER, MEDICAID, SELFPAY | END 2021-01-08 13:22 | disposition home or self-care (01) | LOC: WOUND 13:22 | PROVIDERS: PCP Family Medicine Adult Medicine; Visit Provider Surgery | DX: T81.89XA Other complications of procedures, not elsewhere classified, initial encounter (principal); Y83.8 Other surgical procedures as the cause of abnormal reaction of the patient, or of later complication, without mention of misadventure at the time of the procedure; F17.210 Nicotine dependence, cigarettes, uncomplicated | CPT/HCPCS: 11042 ==

== ENCOUNTER 2021-01-15 13:05 | Outpatient (CLI) | payer OTHER, MEDICAID, SELFPAY | END 2021-01-15 13:06 | disposition home or self-care (01) | LOC: WOUND 13:05 | PROVIDERS: PCP Family Medicine Adult Medicine; Visit Provider Nurse Practitioner Family | DX: T81.89XA Other complications of procedures, not elsewhere classified, initial encounter (principal); Y83.8 Other surgical procedures as the cause of abnormal reaction of the patient, or of later complication, without mention of misadventure at the time of the procedure; F17.210 Nicotine dependence, cigarettes, uncomplicated | CPT/HCPCS: 11042 ==

== ENCOUNTER 2021-01-22 13:40 | Outpatient (CLI) | payer OTHER, MEDICAID, SELFPAY | END 2021-01-22 13:41 | disposition home or self-care (01) | LOC: WOUND 13:40 | PROVIDERS: PCP Family Medicine Adult Medicine; Visit Provider Surgery | DX: T81.89XA Other complications of procedures, not elsewhere classified, initial encounter (principal); Y83.8 Other surgical procedures as the cause of abnormal reaction of the patient, or of later complication, without mention of misadventure at the time of the procedure; F17.210 Nicotine dependence, cigarettes, uncomplicated | CPT/HCPCS: 97597 ==

== ENCOUNTER 2021-01-29 13:54 | Outpatient (CLI) | payer OTHER, MEDICAID, SELFPAY | END 2021-01-29 13:55 | disposition home or self-care (01) | LOC: WOUND 13:54 | PROVIDERS: PCP Family Medicine Adult Medicine; Visit Provider Surgery | DX: T81.89XA Other complications of procedures, not elsewhere classified, initial encounter (principal); Y83.8 Other surgical procedures as the cause of abnormal reaction of the patient, or of later complication, without mention of misadventure at the time of the procedure; F17.210 Nicotine dependence, cigarettes, uncomplicated; I10 Essential (primary) hypertension | CPT/HCPCS: 11042 ==

== ENCOUNTER 2021-02-05 13:34 | Outpatient (CLI) | payer OTHER, MEDICAID, SELFPAY | END 2021-02-05 13:35 | disposition home or self-care (01) | LOC: WOUND 13:35 | PROVIDERS: PCP Family Medicine Adult Medicine; Visit Provider Surgery | DX: T81.89XA Other complications of procedures, not elsewhere classified, initial encounter (principal); Y83.8 Other surgical procedures as the cause of abnormal reaction of the patient, or of later complication, without mention of misadventure at the time of the procedure; F17.210 Nicotine dependence, cigarettes, uncomplicated | CPT/HCPCS: 11042 ==

== ENCOUNTER 2021-02-12 13:16 | Outpatient (CLI) | payer OTHER, MEDICAID, SELFPAY | END 2021-02-12 13:17 | disposition home or self-care (01) | LOC: WOUND 13:16 | PROVIDERS: PCP Family Medicine Adult Medicine; Visit Provider Surgery | DX: T81.89XA Other complications of procedures, not elsewhere classified, initial encounter (principal); Y83.8 Other surgical procedures as the cause of abnormal reaction of the patient, or of later complication, without mention of misadventure at the time of the procedure; F17.210 Nicotine dependence, cigarettes, uncomplicated; I10 Essential (primary) hypertension | CPT/HCPCS: 99212 ==

== ENCOUNTER 2021-11-19 14:29 | Outpatient (RCR) | payer OTHER, MEDICAID, SELFPAY | END 2021-12-01 23:59 | disposition home or self-care (01) | LOC: SPT 14:29 | PROVIDERS: PCP Family Medicine Adult Medicine; Visit Provider Family Medicine Adult Medicine | DX: M25.511 Pain in right shoulder (principal); G89.29 Other chronic pain | CPT/HCPCS: 97110; 97161 ==

== ENCOUNTER 2021-12-02 06:00 | Outpatient (RCR) | payer OTHER, MEDICAID, SELFPAY | END 2021-12-31 23:59 | disposition home or self-care (01) | LOC: SPT 06:00 | PROVIDERS: PCP Family Medicine Adult Medicine; Visit Provider Family Medicine Adult Medicine | DX: M25.511 Pain in right shoulder (principal); G89.29 Other chronic pain | CPT/HCPCS: 97110 ==

== ENCOUNTER 2022-02-15 10:46 | Outpatient (CLI) | payer OTHER, MEDICAID, SELFPAY ==
--- NOTE | 2022-02-15 10:53 | MM_ITS ---
WS: [id number] BILATERAL SCREENING DIGITAL TOMOSYNTHESIS MAMMOGRAM WITH CAD HISTORY: SCREENING COMPARISON: None available. Bilateral CC and MLO views with tomosynthesis and synthetic mammography submitted. Computer aided det ection analyzed. Breast composition: There are scattered areas of fibroglandular density. No suspicious masses, microc alcifications or architectural distortion. Benign scattered calcifications in each breast. MM/[place] [id number] IMPRESSION: BI-RADS: 2-Benign FOLLOW UP: 1 Year Follow-up
== END 2022-02-15 10:47 | disposition home or self-care (01) ==
LOC: RAD 10:47
PROVIDERS: PCP Family Medicine Adult Medicine; Visit Provider Family Medicine Adult Medicine
DX: Z12.31 Encounter for screening mammogram for malignant neoplasm of breast (principal)
CPT/HCPCS: 77063; 77067

== ENCOUNTER → 2022-04-12 14:48 | Outpatient (BNVA) | payer OTHER, MEDICAID, SELFPAY | PROVIDERS: PCP Family Medicine Adult Medicine; Referring Provider Family Medicine Adult Medicine; Visit Provider Physician Assistant | DX: M47.892 Other spondylosis, cervical region (principal); M54.2 Cervicalgia | CPT/HCPCS: 72050 ==

== ENCOUNTER 2022-04-19 11:15 | Outpatient (CLI) | payer OTHER, MEDICAID, SELFPAY ==
--- NOTE | 2022-04-19 11:45 | MR_ITS ---
WS: [id number] MRI CERVICAL SPINE NONCONTRAST TECHNIQUE: Sagittal T1, T2 and STIR imaging. Axial T2, gradient, and fiesta imaging. CLINICAL INFORMATION: chronic shoulder pain COMPARISON: None. FINDINGS: Straightening of the normal cervical lordosis. Cord signal is normal. Hypertrophic changes anteriorly at C5-C6. Disc space narrowing worse at C5-C6 and C6-C7. C2-C3: Mild facet arthropathy. Spinal canal and foramen are patent. C3-C4: No significant disc bulging. Mild facet arthropathy. Mild RIGHT and no significant LEFT forami nal narrowing. C4-C5: Slight anterolisthesis C4 on C5. Disc osteophyte complex with mild central canal stenosis. Mod erate RIGHT and mild LEFT bony foraminal narrowing. Moderate facet arthropathy worse on the RIGHT. C5-C6: Disc osteophyte complex with endplate ridging. Mild central canal stenosis. Severe LEFT greate r than RIGHT bony foraminal narrowing. Moderate facet arthropathy C6-C7: Disc osteophyte complex endplate ridging. Mild central canal stenosis. Severe LEFT greater marga n RIGHT bony foraminal narrowing. Moderate facet arthropathy C7-T1: Disc osteophytic ridging. Mild LEFT greater than RIGHT bony foraminal narrowing. Spinal canal is patent. Small amount of facet edema in the RIGHT C3-C4, RIGHT C4-C5, and RIGHT C5-C6 articulating facets. Ret ention cysts in the posterior nasopharynx partially visualized Visualized brain stem structures: Normal. Prevertebral soft tissues: Normal. MR/MR cervical spin wo con* [id number] IMPRESSION: 1. Straightening of the normal cervical lordosis. Disc space narrowing worse a t C5-C6 and C6-C7. 2. Mild central canal stenosis C5-C6 and C6-C7 with slight contact of the cerv ical cord at C6-C7. 3. Moderate RIGHT C4-C5, moderate to severe bilateral C5-C6 and bilateral C6-C 7 foraminal narrowing worse on the LEFT. 4. Small amount of facet edema in the RIGHT C3-C4, RIGHT C4-C5, and RIGHT C5-C 6 articulating facets consistent with synovitis.
== END 2022-04-19 11:16 | disposition home or self-care (01) ==
LOC: RAD 11:16
PROVIDERS: PCP Family Medicine Adult Medicine; Visit Provider Physician Assistant
DX: M25.519 Pain in unspecified shoulder (principal); G89.29 Other chronic pain; M48.02 Spinal stenosis, cervical region; R60.0 Localized edema
CPT/HCPCS: 72141

== ENCOUNTER 2022-04-26 10:54 | Outpatient (CLI) | payer OTHER, MEDICAID, SELFPAY | END 2022-04-26 10:55 | disposition home or self-care (01) | LOC: SPT 10:54 | PROVIDERS: PCP Family Medicine Adult Medicine; Visit Provider Physician Assistant | DX: Z46.89 Encounter for fitting and adjustment of other specified devices (principal); M54.12 Radiculopathy, cervical region; M50.30 Other cervical disc degeneration, unspecified cervical region | CPT/HCPCS: 97760; L0172 ==

== ENCOUNTER 2022-05-18 05:48 | Outpatient (CLI) | payer OTHER, MEDICAID, SELFPAY | END 2022-05-18 05:49 | disposition home or self-care (01) | LOC: RT 05-25 05:49 | PROVIDERS: PCP Family Medicine Adult Medicine; Visit Provider Orthopaedic Surgery | DX: Z13.6 Encounter for screening for cardiovascular disorders (principal) | CPT/HCPCS: 93005 ==

== ENCOUNTER 2022-05-25 05:56 | Day surgery (SDC) | payer OTHER, MEDICAID, SELFPAY ==
[2022-05-18 09:22] VITALS: BMI 31.6
--- NOTE | 2022-05-18 09:48 | ECG_ITS ---
[facility] Test Date: 2022-05-18 Pat Name: Hortensia Lanier Department: Room: Gender: Female Dealer Card Room: : 1965 Requested By: Thaddeus Finn Order Number: [id number] Nereida MD: Kathrin Helm M.D. Measurements Intervals [place] Rate: 95 P: 58 NM: 143 QRS: 42 QRSD: 94 T: 41 QT: 339 QTc: 427 Interpretive Statements SINUS RHYTHM Compared to ECG 11/27/2020 12:53:58 T-wave abnormality no longer present Electronically Signed On 05-18-2022 12:56:34 CATERING CHEF by Kathrin Helm M.D. [id number]
[2022-05-18 10:08] LABS: Basophils % 0.3 %; Eosinophils # 0.1 10^3/uL (0.0-0.8); Eosinophils % 1.6 %; Hematocrit 40.7 % (37.0-47.0); Hemoglobin 13.7 g/dL (11.5-15.3); Lymphocytes # 2.5 10^3/uL (0.8-4.8); Lymphocytes % 27.9 %; Mean Corpuscular HGB Conc 33.7 g/dL (30.0-36.0); Mean Corpuscular Hemoglobin 31.2 pg (28.0-34.0); Mean Corpuscular Volume 92.7 fl (81-99); Mean Platelet Volume 9.4 fL (7.4-10.4); Monocytes # 0.5 10^3/uL (0.2-0.9); Monocytes % 5.2 %; Neutrophils # 5.79 10^3/uL (1.8-7.7); Neutrophils % 64.8 %; Nucleated Red Blood Cells % 0 %; Platelet Count 336 10^3/cmm (130-400); Red Blood Count 4.39 10^6/uL (4.1-5.3); Red Cell Distribution Width 12.3 % (12.1-15.1); White Blood Count 8.9 10^3/uL (4.0-10.0)
[2022-05-18 10:33] LABS: Anion Gap 15.4 (5-19); Blood Urea Nitrogen 17 mg/dL (6-20); Calcium 8.8 mg/dL (8.5-10.5); Carbon Dioxide 24 mmol/L (22-29); Chloride 105 mmol/L (98-107); Creatinine Clr Calc Pharmacy 150.8896; Glomerular Filtration Rate 127.6 mL/min (90-130); Glucose 118 mg/dL (65-115); Osmolality Calculated 295 mOsm/kg (285-295); Potassium 3.4 mmol/L (3.5-5.1); Sodium 141 mmol/L (136-145)
--- NOTE | 2022-05-18 15:37 | ANES.PREANE2 ---
Pre-Anesthetic Assessment Height/Weight: Height 1.73 m Weight 94.347 kg Preop Diagnosis: Right lower extremity wounds Status post dog bites Operation Date: 05/25/22 07:00 Proposed Procedures p Anterior Cervical Discectomy & Fusion:C4/5 28249,C5/6 55969,C6/7 37372, [id number],33814,71875,20520,M54.12,M50.30(Not Applicable) - Michel Whitaker, Familial anesthetic complications: None Was Beta Elmer taken within 24 hours: N/A Was Clonidine taken within 24 hours: N/A Social Tobacco and No alcohol Exam alert, oriented x 3 and regular rate & rhythm Airway Submandibular: within normal limits Cervical ROM: within normal limits Mallampati: Class II Dentition: false Pulmonary Chronic Obstructive Pulmonary Disease CV/HEM Coronary Artery Disease (stent), Hypertension and Peripheral Vascular Disease Metabolic Morbid Obesity Musc/skel Lower Back Pain Neuropsych Cerebrovascular Accident Anesthetic Plan ASA status: 3 Anesthesia: General Medications/Allergies Home Medications Medication Instructions Recorded Confirmed Last Taken Type buspirone 10 mg tablet 10 mg PO BID anxiety #60 tabs 01/28/22 05/18/22 05/18/22 Rx cyclobenzaprine 7.5 mg tablet 7.5 mg PO BID muscle pain #60 tabs 01/28/22 05/18/22 05/17/22 Rx sertraline 100 mg tablet 150 mg PO QAM mental health 30 01/28/22 05/18/22 05/17/22 Rx days #45 tabs cervical collar #1 ea 04/26/22 04/26/22 Unknown Rx hydrocodone 5 mg-acetaminophen 325 1 tab PO Q4H PRN pain 5 days #30 04/26/22 05/18/22 Unknown Rx mg tablet tabs lisinopril 20 mg tablet 20 mg PO QAM blood pressure 05/05/22 05/18/22 05/17/22 Rx control #30 tabs hydroxyzine HCl 50 mg tablet 50 mg PO BEDTIME 05/18/22 05/18/22 05/17/22 History Allergies Allergy/AdvReac Type Severity Reaction Status Date / Time No Known Allergies Allergy Verified 04/26/22 10:12 PFS Anesthesia Medical History Allergic rhinitis due to allergen Anxiety about health Chronic shoulder pain Hypertension Pes planus of both feet Porokeratosis PVD (peripheral vascular disease) with claudication Stroke Surgical History History of appendectomy History of heart artery stent Social History Smoking and tobacco status: current every day smoker (0.5ppd) cigarettes Packs smoked per day: 0.5 Second hand smoke exposure: Yes Alcohol intake: current Alcohol intake frequency: holidays/special occasions only Caregiver/support person: No Lives independently: Yes Current occupational status: employed Data Anesthesia 05/18/22 09:43 05/18/22 09:43 Short CBC 05/18/22 Range/Units 09:43 WBC 8.9 (4.0-10.0) 10^3/uL Hgb 13.7 (11.5-15.3) g/dL Hct 40.7 (37.0-47.0) % MCV 92.7 (81-99) fl Plt Count 336 (130-400) 10^3/cmm Neut % (Auto) 64.8 % Neut # (Auto) 5.79 (1.8-7.7) 10^3/uL BMP 05/18/22 09:43 Sodium 141 Potassium 3.4 L Chloride 105 Carbon Dioxide 24 BUN 17 Creatinine 0.5 Glucose 118 H Calcium 8.8 Cardiac Studies: No Data to Display
[2022-05-25] VITALS (10 sets, daily range): BP systolic 137–168; BP diastolic 75–110; PULSE 85–97; RESP 16–20; TEMP 36.1–36.2; O2SAT 93–100
[2022-05-25] MEDS: sodium chloride 0.9% 1,000 ML 30 ML IV (06:26)
--- NOTE | 2022-05-25 06:29 | W.PM.OPSUD ---
Surgery/Procedure H&P Update DATE OF PROCEDURE: May 25, 2022 DATE H&P PERFORMED: 04/26/22 H&P UPDATE INFORMATION: I have reviewed H&P completed within last 30 days, I have examined patient prior to procedure and No changes to prior documentation PREOP DIAGNOSIS: Cervical Radiculopathy PLANNED PROCEDURE: Operation Date: 05/25/22 07:00 Proposed Procedures p Anterior Cervical Discectomy & Fusion:C4/5 89536,C5/6 92011,C6/7 46881, 90291v4,87797,07425,78538,M54.12,M50.30(Not Applicable) - Michel Whitaker, DO
--- NOTE | 2022-05-25 06:36 | P.ANESUD_ITS ---
Pre-Anesthetic Update Pre-Anesthetic Assessment: Date of Surgery/Procedure: 05/25/22 Preop Jen gnosis: Cervical Radiculopathy Proposed Procedure: Operation Date: 05/25/22 07:00 Proposed Procedures p Anterior Cervical Discectomy & Fusion:C4/5 75370,C5/6 54419,C6/7 73153, [id number],28853,73898,90600,M54.12,M50.30(Not Applicable) - Michel Whitaker, DO Any changes to Pre-Anesthetic Assessment?: No Last Intake: Intake Last Liquid Date 05/24/22 Last Liquid Time 23:45 Last Solid Date 05/24/22 Last Solid Time 17:30 Vitals: Temperature 97 F L 05/25/22 06:04 Temperature Source Temporal Artery S can 05/25/22 06:04 Pulse Rate 97 05/25/22 06:04 Pulse Rhythm 05/25/22 06:16 Pulse Strength 3+ Normal 05/25/22 06:16 Respiratory Rate 16 05/25/22 06:04 Blood Pressure 167/110 05/25/22 06:04 Blood Pressure Odalys n 129 05/25/22 06:04 Pulse Oximetry 97 05/25/22 06:04 Oxygen Delivery Me thod 05/25/22 06:16 Exam: Pre-Anes Outpt Exam: alert, oriented x 3, clear to auscultation bilaterally and regular rate & rhythm Cardiac Studies: No Data to Display
[2022-05-25] MEDS: ceFAZolin 2,000 MG in sodium chloride 0.9% (plus) 50 ML 100 MG IV (06:58)
[2022-05-25] MEDS: lidocaine-epi 1% 20 mL INJ INJECTION (07:31)
--- NOTE | 2022-05-25 08:51 | XR_ITS ---
WS: [id number] Exam: XR cervical spine 1V [id number] Date/Time of Exam: 05/25/2022 8:51 AM Reason For Exam: OR PICS Intraoperative AP and lateral C-arm images of the C-spine are submitted for evaluation. The images depict anterior plate and screw fixation of the cervical spine from C4 to C7. Disc spacers at the C4-5, C5-6 and C6-7 levels. An endotracheal tube is noted in the airway.
--- NOTE | 2022-05-25 08:59 | PM.OP ---
Operative Report Date of procedure: May 25, 2022 Pre-op diagnosis: Preop Diagnosis Cervical Radiculopathy Post-op diagnosis: same Procedure done: 1. Anterior diskectomy C4/5 2. Anterior diskectomy C5/6 3. Anterior discectomy C6/7 4. Insertion of cage C4/5 5. Insertion of cage C5/6 6. Insertion of Cage C6/7 7. Instrumentation with anterior plate from C4-C7 8. Use of allograft Surgeon: Michel Whitaker Loss Prevention Representative: Nirmal Dutton Loss Prevention Representative: The surgical physician assistant, Nirmal Dutton, PAC was needed for his expertise under the microscope. He was important and necessary throughout the procedure to complete in a safe and timely manner. He assisted with patient positioning prepping and draping tissue retraction suctioning of the operative field protection of the dural sac and tissue closure Estimated blood loss (mL): 20 Procedure: 1. Anterior diskectomy C4/5 2. Anterior diskectomy C5/6 3. Anterior discectomy C6/7 4. Insertion of cage C4/5 5. Insertion of cage C5/6 6. Insertion of Cage C6/7 7. Instrumentation with anterior plate from C4-C7 8. Use of allograft The patient was taken to the operating room, where he underwent general endotracheal anesthesia without complications. He was then positioned supine on the operating table, and all areas of impingement were well padded. The arms were carefully padded and tucked at his sides. A roll was placed between the shoulder blades.. An x-ray was done to determine the appropriate level for the skin incision. The entire neck was then sterilely prepped and draped in the usual fashion. Neuromonitoring was attached prior to prepping. A transverse skin incision was made and carried down to the platysma muscle. This was then split in line with its fibers. Blunt dissection was carried down medial to the carotid sheath and lateral to the trachea and esophagus until the anterior cervical spine was visualized. A needle was placed into a disc and an x-ray was done to determine its location. The longus colli muscles were then elevated bilaterally with the electrocautery unit. Self-retaining retractors were placed deep to the longus colli muscle. Attention was brought to the Patient level that was confirmed on x-ray. A caspar pin was placed into the C6 vertebrae and the C7 vertebrae. The disk space was then distracted. The microscope was then brought in. A radical anterior discectomies were performed at C6/7. This included complete removal of the anterior annulus, nucleus, and posterior annulus. The posterior longitudinal ligament was removed as were the posterior osteophytes. Foraminotomies were then accomplished bilaterally. This was done using a high speed master, kerrison rongeurs and curretes Once all of this was accomplished, the curved currette was used to check for any residual compression. The central canal was wide open as were the foramen. A high-speed bur was used to remove the cartilaginous endplates above and below the interspace. Bleeding cancellous bone was exposed. The disc space were measured and appropriate size cage were placed sterilely onto the field. Allograft graft was packed into the cages. The cage was then placed and there was good juxtaposition against the bleeding decorticated surfaces and good distraction of each interspace. Attention was brought to the next interspace. The [place] pins were removed. Bone wax was used to prevent any bleeding from occurring at the pin sites. Patient level that was confirmed on x-ray. A caspar pin was placed into the C5 vertebrae and the C6 vertebrae. The disk space was then distracted. The microscope was then brought in. A radical anterior discectomies were performed at C5/6. This included complete removal of the anterior annulus, nucleus, and posterior annulus. The posterior longitudinal ligament was removed as were the posterior osteophytes. Foraminotomies were then accomplished bilaterally. This was done using a high speed master, kerrison rongeurs and curretes Once all of this was accomplished, the curved currette was used to check for any residual compression. The central canal was wide open as were the foramen. A high-speed bur was used to remove the cartilaginous endplates above and below the interspace. Bleeding cancellous bone was exposed. The disc space were measured and appropriate size cage were placed sterilely onto the field. Allograft graft was packed into the cages. The cage was then placed and there was good juxtaposition against the bleeding decorticated surfaces and good distraction of each interspace. Attention was brought to the next interspace. The [place] pins were removed. Bone wax was used to prevent any bleeding from occurring at the pin sites. Patient level that was confirmed on x-ray. A caspar pin was placed into the C4 vertebrae and the C5 vertebrae. The disk space was then distracted. The microscope was then brought in. A radical anterior discectomies were performed at C4/5. This included complete removal of the anterior annulus, nucleus, and posterior annulus. The posterior longitudinal ligament was removed as were the posterior osteophytes. Foraminotomies were then accomplished bilaterally. This was done using a high speed master, kerrison rongeurs and curretes Once all of this was accomplished, the curved currette was used to check for any residual compression. The central canal was wide open as were the foramen. A high-speed bur was used to remove the cartilaginous endplates above and below the interspace. Bleeding cancellous bone was exposed. The disc space were measured and appropriate size cage were placed sterilely onto the field. Allograft graft was packed into the cages. The cage was then placed and there was good juxtaposition against the bleeding decorticated surfaces and good distraction of each interspace. Attention was brought to the next interspace. The [place] pins were removed. Bone wax was used to prevent any bleeding from occurring at the pin sites. The appropriate size anterior cervical locking plate was chosen and bent into gentle lordosis. Two screws were then placed into each of the vertebral bodies at []. There was excellent purchase. A final x-ray was done confirming good position of the hardware and Cages. The locking screws were then applied, also with excellent purchase. Following a final copious irrigation, there was good hemostasis and no dural leaks. The carotid pulse was strong. The wounds were then closed in layers using 2-0 Vicryl suture for the platysma muscle, 2-0 Vicryl suture for the subcutaneous tissue, and 4-0 monocryl suture in a subcuticular skin closure. Glue was placed followed by application of a sterile dressing. The drain was hooked to bulb suction. A soft collar was applied. The patient was then carefully returned to the supine position on his hospital bed where he was reversed and extubated and taken to the recovery room having tolerated the procedure well.
[2022-05-25] MEDS: HYDROcodone-acetaminophen 5-325 mg Tablet 2 TAB PO (09:43)
[2022-05-25] MEDS: HYDROmorphone 1 mg/mL INJ 1 mL 0.5 MG IVP (09:43)
[2022-05-25] MEDS: ondansetron 2 mg/ML SDV 2 mL 4 MG IVP (09:44)
--- NOTE | 2022-05-25 13:54 | ANE.PACU2 ---
Inpatient post-anesthesia follow up: Airway intact: Yes Vital signs: Temperature 97.2 F Pulse Rate 88 Respiratory Rate 16 Blood Pressure 152/84 Pulse Oximetry 93 Oxygen Delivery Me thod Room Air Oxygen Flow Rate 6 Fraction of Inspir ed Oxygen Hydration adequate: Yes Nausea and vomiting: No Pain level: 1 Mental status: Baseline
== END 2022-05-25 11:00 | disposition home or self-care (01) ==
PROVIDERS: Anesthesiology; PCP Family Medicine Adult Medicine; Visit Provider Orthopaedic Surgery
PROC: 0RB30ZZ Excision of Cervical Vertebral Disc, Open Approach (ICD-10-PCS; CPT 22551; principal; 2022-05-25 07:00)
DX: M54.12 Radiculopathy, cervical region (principal); J44.9 Chronic obstructive pulmonary disease, unspecified; I25.10 Atherosclerotic heart disease of native coronary artery without angina pectoris; Z95.5 Presence of coronary angioplasty implant and graft; E66.01 Morbid (severe) obesity due to excess calories; Z68.31 Body mass index [BMI] 31.0-31.9, adult; Z86.73 Personal history of transient ischemic attack (TIA), and cerebral infarction without residual deficits; I10 Essential (primary) hypertension; F17.210 Nicotine dependence, cigarettes, uncomplicated
CPT/HCPCS: 20930; 22551; 22552 ×2; 22845; 22853 ×3; 36415; 72020; 76000; 80048; 85025; C1713; C9359; J0131; J0690; J1100; J1170; J1200; J2250; J2370; J2405; J2704; J3010; J3490; J7030

== ENCOUNTER → 2022-07-07 14:55 | Outpatient (BNVA) | payer OTHER, MEDICAID, SELFPAY | PROVIDERS: PCP Family Medicine Adult Medicine; Visit Provider Orthopaedic Surgery | DX: Z47.89 Encounter for other orthopedic aftercare (principal); Z98.1 Arthrodesis status | CPT/HCPCS: 72040 ==

== ENCOUNTER 2022-07-31 08:21 | Emergency (ER) | payer OTHER, MEDICAID, SELFPAY ==
[2022-07-31 08:27] VITALS: BP 158/107; PULSE 103; RESP 20; O2SAT 97; BMI 31.1
--- NOTE | 2022-07-31 08:44 | XRR_ITS ---
PROCEDURE INFORMATION: Exam: XR Lumbosacral Spine Exam date and time: 07/31/2022 8:59 AM Age: 57 years old Clinical indication: Low back pain; Prior surgery; Surgery type: Back neck TECHNIQUE: Imaging protocol: Radiologic exam of the lumbosacral spine. Views: 2 or 3 views. COMPARISON: CT abdomen pelvis w con* [id number] 11/27/2020 8:39 AM FINDINGS: Bones/joints: Spinal alignment is normal. Vertebral body height is maintained. Intervertebral disc height is maintained. There is moderate multilevel facet spondylosis. No acute fracture. The visible portion of the pelvis and sacrum is intact. Soft tissues: Unremarkable. Vasculature: Moderate aortic calcific plaque. XR/XR lumbar spine 2-3V* [id number] IMPRESSION: No acute findings.
--- NOTE | 2022-07-31 08:45 | ED_ITS ---
HPI - Back Pain/Injury General: Chief Complaint: Back Pain/Injury Stated Complaint: post surg 05/26 /back pains Time Seen by Provider: 07/31/22 08:30 History of Present Illness: Patient is a 57-year-old female that comes to the ED with lower back pain. Patient sees Dr. Whitaker and approximately 2 months ago had a cervical spinal fusion surgery performed. She has no complaints about cervical spine or surgical site. She is having lower back pain that she rates as a 10 out of 10 in it is located on the right side of her lower back. She says it is a constant aching type pain. Denies any pain radiating down right leg. Denies any cauda equina symptoms. She states she has been having this pain now for several months. Its flared up and gotten worse over the past several days. Patient did say that she has been back at work and thinks that that flared up the lower back pain. Pain worsens with any movements. Denies any bladder symptoms. Associated symptoms: Deny abdominal pain, chills, dysuria, fatigue, fever(s), hematuria, nausea or vomiting Review of Systems Const: Denies: fever(s), chills or fatigue Eyes: Denies: change in vision or eye discomfort ENMT: Denies: throat pain, odynophagia, nasal discharge or nasal congestion Card: Denies: chest pain, palpitations, edema, swelling of feet/ankles, dyspnea on exertion or orthopnea Resp: Denies: dyspnea, productive cough or non-productive cough GI: Denies: abdominal pain, nausea, vomiting, diarrhea, constipation or hematochezia : Denies: flank pain, dysuria or hematuria Musc: Reports: back pain; Denies: neck pain or extremity swelling Skin/Breast: Denies: rash or new lesions Neuro: Denies: headache(s), numbness in extremities or weakness in extremities PFSH ED PFSH: Medical History Allergic rhinitis due to allergen Anxiety about health Chronic shoulder pain Hypertension Pes planus of both feet Porokeratosis PVD (peripheral vascular disease) with claudication Stroke Surgical History History of appendectomy History of heart artery stent Social History Smoking and tobacco status: current every day smoker (0.5ppd) cigarettes Packs smoked per day: 0.5 Second hand smoke exposure: Yes Alcohol intake: current Alcohol intake frequency: holidays/special occasions on ly Substance/Drug Use: never Caregiver/support person: No Lives independently: Yes Current occupational status: employed Physical Exam Const: COMMON NORMALS: patient oriented x3 and alert GENERAL APPEARANCE: cooperative HENMT: COMMON NORMALS: normocephalic HEAD & SCALP: normocephalic MOUTH: Normal oral and palatal mucosa present THROAT: posterior oropharynx normal and uvula midline Neck/C-Spine: COMMON NORMALS: supple GENERAL: Yes normal visual inspection Resp: COMMON NORMALS: normal respiratory effort, No retractions, No use of accessory muscles and clear to auscultation bilaterally AUSCULTATION: clear to auscultation bilaterally Cardio: COMMON NORMALS: regular rate, regular rhythm, S1 normal heart sound present, S2 normal heart sound present, No gallops present (Cardio), No clicks present (Cardio), No murmurs present (Cardio) and Peripheral pulses 2+ throughout RATE: regular rate RHYTHM: regular rhythm HEART SOUNDS: S1 normal heart sound present and S2 normal heart sound present PERIPHERAL PULSES: Peripheral pulses 2+ throughout GI: COMMON NORMALS: Normal to inspection, nondistended, normoactive bowel sounds present, Soft to palpation, non-tender and no masses PALPATION: Yes Soft to palpation : COMMON NORMALS: Yes no CVA tenderness BLADDER/KIDNEY EXAM: Yes no CVA tenderness Back/Pelvis: COMMON NORMALS: no CVA tenderness LUMBAR SPINE/LOWER BACK: No lumbar spinal tenderness and Yes paraspinal muscle tenderness Lumbar paraspinal muscle tenderness: right Right lumbar paraspinal muscle tenderness: L3, L4 and L5 Extremity: COMMON NORMALS: normal to inspection Neuro: COMMON NORMALS: patient oriented x3 SENSORIUM/ORIENTATION: Yes alert GAIT: Yes Normal gait present Skin: GENERAL SKIN EXAM: dry skin Course Vital Signs: Vital signs: Vital Signs Pulse Rate 103 H 07/31/22 08:27 Respiratory Rate 20 H 07/31/22 09:11 Blood Pressure 158/107 07/31/22 08:27 Pulse Oximetry 97 07/31/22 08:27 Oxygen Delivery Me thod Room Air 07/31/22 08:27 MDM - Back Pain/Injury Medical Decision Making Patient is a 57-year-old female that comes to the ED with lower back pain. Patient sees Dr. Whitaker and approximately 2 months ago had a cervical spinal fusion surgery performed. She has no complaints about cervical spine or surgical site. She is having lower back pain that she rates as a 10 out of 10 in it is located on the right side of her lower back. She says it is a constant aching type pain. Denies any pain radiating down right leg. Denies any cauda equina symptoms. She states she has been having this pain now for several months. Its flared up and gotten worse over the past several days. Patient did say that she has been back at work and thinks that that flared up the lower back pain. Pain worsens with any movements. Denies any bladder symptoms. Vital stable. Patient appears nontoxic and in no acute distress. She does have some right lumbar paraspinal muscle tenderness around L3-L5 but no lumbar spinal tenderness. Rest of exam is benign. X-ray of lumbar spine showed no acute fractures UA was suggestive of a potential UTI. She was stable for discharge home and diagnosed with low back pain and UTI. Sent home with a prescription for an antibiotic, NSAID, steroid and muscle relaxer. Return ED precautions given. Follow-up with PCP in the next week for reevaluation. Patient understood and agreed with plan. Labs Radiology Impressions Lumbar Spine X-Ray 07/31/22 08:44 IMPRESSION: No acute findings. Laboratory Results Urine Color Dark yellow (Yellow) 07/31/22 09:23 Urine Appearance Clear (CLEAR) 07/31/22 09:23 Urine pH 5 (5-7) 07/31/22 09:23 Ur Specific [place] 1.020 (1.005-1.030) 07/31/22 09:23 Urine Protein Neg (Negative) 07/31/22 09:23 Urine Glucose (UA) Norm (Normal) 07/31/22 09:23 Urine Ketones Negative (Negative) 07/31/22 09:23 Urine Blood 2+ (Negative) H 07/31/22 09:23 Urine Nitrate Negative (Negative) 07/31/22 09:23 Urine Bilirubin Neg (Negative) 07/31/22 09:23 Urine Urobilinogen Norm mg/dL (Negative) 07/31/22 09:23 Ur Leukocyte Esterase 1+ (Negative) H 07/31/22 09:23 Urine RBC 5-10 /hpf (0-2) H 07/31/22 09:23 Urine WBC 15-25 /hpf (0-5) H 07/31/22 09:23 Ur Squamous Epith Cells 5-10 /hpf (0-5) H 07/31/22 09:23 Amorphous Sediment Not Reportable 07/31/22 09:23 Urine Bacteria 1+ /hpf (NONE) H 07/31/22 09:23 Discharge Plan Discharge Patient Disposition: Home Clinical Impression: Low back pain Qualifiers: Chronicity: unspecified Back pain laterality: right Sciatica presence: without sciatica Qualified Code(s): M54.50 - Low back pain, unspecified UTI (urinary tract infection) Qualifiers: Urinary tract infection type: acute cystitis Hematuria presence: with hematuria Qualified Code(s): N30.01 - Acute cystitis with hematuria Condition: Stable Prescriptions: New ibuprofen 800 mg tablet 800 mg PO Q8H PRN (Reason: pain) Qty: 30 0RF Medrol (Marcel) 4 mg tablets,dose pack See Rx Instructions .ROUTE .COMPLEX Qty: 21 0RF Rx Instructions: orally per package directions cyclobenzaprine 10 mg tablet 10 mg PO BID PRN (Reason: muscle spasm) Qty: 20 0RF Bactrim DS 800-160 mg tablet 1 tab PO BID 5 Days Qty: 10 0RF No Action (DME) cervical collar See Rx Instructions .Route .MEDSUPPLY Qty: 1 0RF Rx Instructions: As directed cyclobenzaprine 7.5 mg tablet 7.5 mg PO BID Qty: 60 2RF sertraline 100 mg tablet 150 mg PO QAM 30 Days Qty: 45 5RF lisinopril 20 mg tablet 20 mg PO QAM Qty: 30 5RF (DME) Bone Growth Stimulator E0748 See Rx Instructions .Route .MEDSUPPLY Qty: 1 0RF Rx Instructions: As directed buspirone 10 mg tablet 10 mg PO BID Qty: 60 3RF hydroxyzine HCl 50 mg tablet 50 mg PO BEDTIME Qty: 30 3RF Rx Instructions: TAKE ONE TABLET BY MOUTH AT BEDTIME NEEDED FOR sleep hydrocodone-acetaminophen 5-325 mg tablet 1 - 2 tab PO .Q4-6H PRN (Reason: Postop pain) 5 Days Qty: 40 0RF Discharge Orders: Discharge ED (Routine); Ordered 07/31/22 Ordered By: Kyrie Isabel Referrals: Monster Grigsby MD [Primary Care Provider] - Discharge Diet: Regular Discharge Activity: Increase activity as tolerated Activity Restrictions/Additional Instructions: Follow-up with medical provider as directed in the next 5 to 7 days for reevaluation. Take medications as prescribed. Return to the ER or your medical provider if condition worsens. Please read and understand discharge instructions. Thank you for choosing [facility] for your healthcare needs today. Please realize this is an emergency room and that we are providing you with a medical screening exam and this may not be complete and all inclusive of all the testing and or work up that you may need to determine your ailment or severity of your illness. It is very important that you follow up as instructed or that you return to the Emergency Department should you have concerns or if your condition changes or worsens in any way. Stand Alone Forms: Work/School Release Coding Level of Care Code ED Regulatory Manager for Mattie Javed
[2022-07-31 09:11] VITALS: RESP 20
[2022-07-31] MEDS: cyclobenzaprine 10 mg Tablet PO (09:11)
[2022-07-31] MEDS: morphine 4 mg/mL SDV 1 mL IM (09:11)
[2022-07-31] MEDS: dexamethasone 10 mg/mL INJ IM (09:11)
[2022-07-31 09:42] LABS: Urine Appearance Clear (CLEAR); Urine Color Dark Yellow (Yellow); pH Urine 5 (5-7)
[2022-07-31 09:43] LABS: Add Urine Microscopic? YES; Bilirubin Urine Neg (Negative); Blood Urine 2+ (Negative); Glucose Urine UA Norm (Normal); Ketones Urine Negative (Negative); Leukocyte Esterase Urine 1+ (Negative); Nitrate Urine Negative (Negative); Protein Urine Neg (Negative); Urobilinogen Urine Norm (Negative)
[2022-07-31 09:44] LABS: Add Urine Culture? Yes; Bacteria Urine 1+ /hpf; WBC Urine 15-25 /hpf (0-5)
[2022-07-31] MEDS: ketorolac 60 mg/2 mL INJ IM (10:48)
== END 2022-07-31 10:57 | disposition home or self-care (01) ==
PROVIDERS: Emergency Provider Physician Assistant; PCP Family Medicine Adult Medicine
DX: M54.50 Low back pain, unspecified (principal); N30.01 Acute cystitis with hematuria; I10 Essential (primary) hypertension; F17.210 Nicotine dependence, cigarettes, uncomplicated
CPT/HCPCS: 72100; 81001; 87077; 87086; 87186; 96372; 99284; J1100; J1885; J2270

== ENCOUNTER 2022-08-10 10:16 | Emergency (ER) | payer OTHER, MEDICAID, SELFPAY ==
[2022-08-10 10:38] VITALS: BP 151/94; PULSE 114; RESP 22; TEMP 36.6; O2SAT 100; BMI 31.0
--- NOTE | 2022-08-10 10:46 | W.ED.BACK ---
HPI - Back Pain/Injury General: Chief Complaint: Back Pain/Injury Stated Complaint: body aches/chills Time Seen by Provider: 08/10/22 10:46 Source: patient Mode of arrival: ambulatory History of Present Illness: 57-year-old female presents emergency room planing of low back pain no radicular symptoms no difficulty with bowel or bladder no fecal incontinence or urinary retention reports pain mostly on the left side of the lumbar spine at the L4-5 level no radiation to the leg. No recent trauma. MD elicited complaint: back pain Onset (ago): week(s) Timing: constant and progressively worsening Similar Symptoms Previously: Yes Quality: sharp Location: lumbar spine Exacerbating factors: sitting upright Relieving factors: supine Associated symptoms: Deny abdominal pain, arthralgias, chills, change in bowel habits, difficulty walking, dysuria, fatigue, fecal incontinence, fever(s), hematuria, myalgias, nausea, numbness, syncope, tingling/numbness/burning, urinary frequency, urinary urgency, vomiting or weakness Review of Systems Const: Denies: fever(s), chills or fatigue Card: Denies: syncope GI: Denies: abdominal pain, nausea, vomiting, fecal incontinence or change in bowel habits : Denies: dysuria, urinary urgency or hematuria Neuro: Denies: difficulty walking PFSH ED PFSH: Medical History Allergic rhinitis due to allergen Anxiety about health Chronic shoulder pain Hypertension Pes planus of both feet Porokeratosis PVD (peripheral vascular disease) with claudication Stroke Surgical History History of appendectomy History of heart artery stent Social History Smoking and tobacco status: current every day smoker (0.5ppd) cigarettes Packs smoked per day: 0.5 Second hand smoke exposure: Yes Alcohol intake: current Alcohol intake frequency: holidays/special occasions only Substance/Drug Use: never Caregiver/support person: No Lives independently: Yes Current occupational status: employed Physical Exam Const: COMMON NORMALS: no acute distress GENERAL APPEARANCE: cooperative and comfortable ORIENTATION/CONSCIOUSNESS: Yes awake, Yes oriented to person, Yes oriented to place and Yes oriented to time HENMT: COMMON NORMALS: normocephalic, atraumatic and hearing grossly normal bilaterally HEAD & SCALP: normocephalic and atraumatic Resp: COMMON NORMALS: normal respiratory effort, No retractions, No use of accessory muscles and clear to auscultation bilaterally AUSCULTATION: clear to auscultation bilaterally Cardio: COMMON NORMALS: regular rate, regular rhythm and No murmurs present (Cardio) RATE: regular rate RHYTHM: regular rhythm GI: COMMON NORMALS: Soft to palpation and No hepatosplenomegaly present AUSCULTATION: Yes normoactive bowel sounds PALPATION: Yes Soft to palpation, No Tenderness to palpation present (GI), No Guarding due to palpation present (GI) and Yes No hepatosplenomegaly present Extremity: COMMON NORMALS: normal to inspection, capillary refill normal, no clubbing, cyanosis or edema, no calf tenderness and no pedal edema Neuro: SENSORIUM/ORIENTATION: Yes oriented to person, Yes oriented to place and Yes oriented to time OTHER: Deep tendon reflexes +2/4 bilaterally patellar tendon +1/4 at the Achilles tendon dorsum plantarflexion 5 of 5 straight leg raising is negative sensation lower extremities normal Skin: COMMON NORMALS: no rashes or lesions noted GENERAL SKIN EXAM: no rashes or lesions noted Course Vital Signs: Vital signs: Vital Signs Temperature 97.9 F 08/10/22 10:38 Pulse Rate 97 08/10/22 12:42 Respiratory Rate 20 H 08/10/22 11:17 Blood Pressure 151/94 08/10/22 10:38 Pulse Oximetry 99 08/10/22 12:42 Oxygen Delivery Me thod Room Air 08/10/22 12:00 MDM - Back Pain/Injury Medical Decision Making Acute lumbar strain. No red flag symptoms. Lumbar spine shows osteopenia but no compression fractures proving with medications. We will discharge patient home on prednisone taper diclofenac tizanidine and follow-up with orthopedic spine surgery. Medical Records I reviewed the patient's medical records. Labs I reviewed the patient's lab results. Radiology Impressions Lumbar Spine X-Ray 08/10/22 10:52 IMPRESSION: 1. Generalized osteopenia 2. Otherwise No acute findings. Discharge Plan Discharge Patient Disposition: Home Clinical Impression: Strain of lumbar region Condition: Stable Prescriptions: New tizanidine 4 mg tablet 4 mg PO Q6H PRN (Reason: muscle spasticity) Qty: 20 0RF Rx Instructions: do not exceed 3 doses per 24 hrs prednisone 20 mg tablet 20 mg PO TID Qty: 15 0RF Rx Instructions: 1 p.o. 3 times daily x3 days, 1 p.o. twice daily x2 days, 1 p.o. daily x2 days diclofenac sodium 75 mg tablet,delayed release (DR/EC) 75 mg PO Q12H PRN (Reason: pain) Qty: 20 0RF Discontinued ibuprofen 800 mg tablet 800 mg PO Q8H PRN (Reason: pain) Qty: 30 0RF cyclobenzaprine 10 mg tablet 10 mg PO BID PRN (Reason: muscle spasm) Qty: 20 0RF No Action (DME) cervical collar See Rx Instructions .Route .MEDSUPPLY Qty: 1 0RF Rx Instructions: As directed (DME) Bone Growth Stimulator E0748 See Rx Instructions .Route .MEDSUPPLY Qty: 1 0RF Rx Instructions: As directed hydroxyzine HCl 50 mg tablet 50 mg PO BEDTIME Qty: 30 3RF Rx Instructions: TAKE ONE TABLET BY MOUTH AT BEDTIME NEEDED FOR sleep hydrocodone-acetaminophen 5-325 mg tablet 1 tab PO Q6H PRN (Reason: Postop pain) 5 Days Qty: 20 0RF lisinopril 20 mg tablet 20 mg PO QAM Discharge Orders: Discharge ED (Routine); Ordered 08/10/22 Ordered By: Bret Wright Referrals: Monster Grigsby MD [Primary Care Provider] - Discharge Diet: Usual diet Discharge Activity: Resume usual activity Patient Instructions: Opioid Safety, Pain Management Activity Restrictions/Additional Instructions: You are seen today for low back pain. Your symptoms improved with medications given in the emergency room. He be discharged home on a different muscle relaxer that you have been taking, steroid taper and an anti-inflammatory. Do not take the cyclobenzaprine or ibuprofen you have previously been taking instead take the tizanidine and diclofenac. it application development manager will make arrangements for you to have follow-up appointment with Dr. Whitaker. X-rays done today were normal. Stand Alone Forms: Work/School Release Coding Level of Care Code ED Sponge Packer for Mattie Javed
--- NOTE | 2022-08-10 10:52 | XRR_ITS ---
PROCEDURE INFORMATION: Exam: XR Lumbosacral Spine Exam date and time: 08/10/2022 10:57 AM Age: 57 years old Clinical indication: Low back pain; Prior surgery; Surgery date: 1-6 months; Surgery type: Lumbar 05/2022 TECHNIQUE: Imaging protocol: Radiologic exam of the lumbosacral spine. Views: 2 or 3 views. COMPARISON: CR (PELVIS, ) 07/31/2022 8:59 AM FINDINGS: Bones/joints: Generalized osteopenia is seen. Vertebral height is preserved. No acute fracture. Normal alignment. The pedicles do not show focal abnormalities. Soft tissues: Unremarkable. XR/XR lumbar spine 2-3V* [id number] IMPRESSION: 1. Generalized osteopenia 2. Otherwise No acute findings.
[2022-08-10 11:13] VITALS: PULSE 102; O2SAT 95
[2022-08-10 11:17] VITALS: RESP 20; O2SAT 98
[2022-08-10] MEDS: morphine 4 mg/mL SDV 1 mL IVP (11:17)
[2022-08-10] MEDS: orphenadrine 30 mg/mL Inj 2 mL 60 MG IVP (11:19)
[2022-08-10] MEDS: ketorolac 30 mg/mL INJ IVP (11:19)
[2022-08-10] MEDS: dexamethasone 10 mg/mL INJ IVP (11:20)
[2022-08-10 12:00] VITALS: PULSE 92; O2SAT 93
[2022-08-10 12:42] VITALS: PULSE 97; O2SAT 99
--- NOTE | 2022-08-11 08:05 | DCPLANNER ---
Addendum entered by Lashanda Rodríguez 08/19/22 10:38: Patient had a follow up appointment scheduled with ortho - patient did attend appointment Addendum entered by Lashanda Rodríguez 08/17/22 11:17: Patient has a follow up appointment scheduled for , August 18, 2022 at 3:[address] Whitaker at ortho. Original Note: entertainment manager had message to schedule a follow up appointment for patient with ortho. entertainment manager sent patients information to the front office staff at ortho. Patients information will be printed and reviewed. Clinic will call patient with appointment information.
== END 2022-08-10 12:43 | disposition home or self-care (01) ==
PROVIDERS: Emergency Provider Family Medicine; PCP Family Medicine Adult Medicine
DX: S39.012A Strain of muscle, fascia and tendon of lower back, initial encounter (principal); I10 Essential (primary) hypertension; Z86.73 Personal history of transient ischemic attack (TIA), and cerebral infarction without residual deficits; F17.210 Nicotine dependence, cigarettes, uncomplicated; X58.XXXA Exposure to other specified factors, initial encounter
CPT/HCPCS: 72100; 96374; 96375; 99284; J1100; J1885; J2270; J2360

== ENCOUNTER → 2022-08-18 15:19 | Outpatient (BNVA) | payer OTHER, MEDICAID, SELFPAY | PROVIDERS: PCP Family Medicine Adult Medicine; Visit Provider Orthopaedic Surgery | DX: Z47.89 Encounter for other orthopedic aftercare (principal); Z98.1 Arthrodesis status; M54.50 Low back pain, unspecified | CPT/HCPCS: 72040 ==

== ENCOUNTER 2022-08-23 13:06 | Emergency (ER) | payer OTHER, MEDICAID, SELFPAY ==
[2022-08-23 13:11] VITALS: BP 95/64; PULSE 135; RESP 14; TEMP 36.6; O2SAT 95; BMI 31.1
--- NOTE | 2022-08-23 14:32 | W.ED.BACK ---
HPI - Back Pain/Injury General: Chief Complaint: Back Pain/Injury Stated Complaint: low back pain Time Seen by Provider: 08/23/22 14:23 History of Present Illness: Patient presents to the ER with complaining of lower back pain, right-sided shoots down her leg. Patient has had this pain for quite a while. Patient is already seen Dr. Glez and has an MRI set up in September. Patient had no new injury. Patient is seen at least twice in the ER and the last regimen of medicine worked very good till she ran out. MD elicited complaint: back pain Pertinent past history: prior back pain Timing: constant and progressively worsening Severity: moderate Similar Symptoms Previously: Yes Quality: aching Location: lumbar spine and right lower back Radiation: right upper leg Exacerbating factors: movement Relieving factors: none Associated symptoms: Deny abdominal pain, chills, dysuria, fever(s), nausea or vomiting Review of Systems General: Reports: 10 or more systems reviewed and unremarkable except in HPI and below Const: Denies: fever(s) or chills Eyes: Denies: change in vision or photophobia ENMT: Denies: throat pain or odynophagia Card: Denies: chest pain or edema Resp: Denies: dyspnea, productive cough or non-productive cough GI: Denies: abdominal pain, nausea or vomiting : Denies: flank pain, difficulty voiding or dysuria Musc: Reports: back pain; Denies: neck pain PFSH ED PFSH: Medical History Allergic rhinitis due to allergen Anxiety about health Chronic shoulder pain Hypertension Pes planus of both feet Porokeratosis PVD (peripheral vascular disease) with claudication Stroke Surgical History History of appendectomy History of heart artery stent Social History Smoking and tobacco status: current every day smoker (0.5ppd) cigarettes Packs smoked per day: 0.5 Second hand smoke exposure: Yes Alcohol intake: current Alcohol intake frequency: holidays/special occasions only Substance/Drug Use: never Caregiver/support person: No Lives independently: Yes Current occupational status: employed Physical Exam Const: COMMON NORMALS: no acute distress, average body habitus, patient oriented x3, no limitations, healthy appearing, alert and well nourished HENMT: COMMON NORMALS: normocephalic, atraumatic, hearing grossly normal bilaterally, external ears normal, Normal external nose present and moist oral mucous membranes HEAD & SCALP: normocephalic and atraumatic NOSE: Normal external nose present EXTERNAL EAR: Yes external ears normal Eye: COMMON NORMALS: Equal, round and reactive pupils present, EOMs intact bilaterally, conjunctivae normal and no scleral icterus CONJUNCTIVA: Yes conjunctivae normal PUPIL: Yes Equal, round and reactive pupils present Neck/C-Spine: COMMON NORMALS: full ROM, no lymphadenopathy, supple, no meningeal signs, no JVD and Thyroid normal THYROID: Thyroid normal Chest: COMMONS NORMALS: normal inspection of the chest and normal palpation of entire chest wall Resp: COMMON NORMALS: normal respiratory effort, No retractions, No use of accessory muscles and clear to auscultation bilaterally AUSCULTATION: clear to auscultation bilaterally Cardio: COMMON NORMALS: no JVD, regular rate, regular rhythm, S1 normal heart sound present, S2 normal heart sound present, No gallops present (Cardio), No clicks present (Cardio), No murmurs present (Cardio) and No rub (Cardio) RATE: regular rate RHYTHM: regular rhythm HEART SOUNDS: S1 normal heart sound present and S2 normal heart sound present GI: COMMON NORMALS: Normal to inspection, nondistended, normoactive bowel sounds present, Soft to palpation, non-tender, No hepatosplenomegaly present and no masses PALPATION: Yes Soft to palpation and Yes No hepatosplenomegaly present Back/Pelvis: OTHER: Tender to palpate right paraspinal musculature. Reproduces the patient's pain. Neuro: COMMON NORMALS: patient oriented x3 SENSORIUM/ORIENTATION: Yes alert MENINGEAL SIGNS: Yes no meningeal signs Course Vital Signs: Vital signs: Vital Signs Temperature 97.8 F 08/23/22 13:11 Pulse Rate 135 H 08/23/22 13:11 Respiratory Rate 14 08/23/22 13:11 Blood Pressure 95/64 08/23/22 13:11 Pulse Oximetry 95 08/23/22 13:11 Oxygen Delivery Me thod Room Air 08/23/22 13:11 MDM - Back Pain/Injury Medical Decision Making Patient presents to the ER with complaints of right-sided low back pain that radiates down to her buttock region patient is already seen Dr. Whitaker and has an MRI set up for this. Patient has been to the ER twice for this. Patient states her last regimen of tizanidine diclofenac and prednisone worked really good till she ran out. Patient has no new injuries. Patient will be prescribed this again and told to keep her appointment with MRI and follow-up with Dr. Whitaker. Differential Diagnosis Likely lumbar radiculopathy and strain of lumbar region; Unlikely sciatica, renal colic, pyelonephritis, thoracic back pain, AAA or discitis Medical Records I reviewed the patient's medical records. Labs I reviewed the patient's lab results. Discharge Plan Discharge Patient Disposition: Home Clinical Impression: Lumbar radiculopathy Condition: Stable Prescriptions: New diclofenac sodium 75 mg tablet,delayed release (DR/EC) 75 mg PO BID Qty: 20 0RF tizanidine 4 mg capsule 4 mg PO Q6H PRN (Reason: muscle spasticity) Qty: 20 0RF Rx Instructions: do not exceed 3 doses per 24 hrs prednisone 20 mg tablet 20 mg PO TID Qty: 15 0RF Rx Instructions: for 3 days, then 1 po bid for 2 days then 1 po daily x 2 days No Action (DME) cervical collar See Rx Instructions .Route .MEDSUPPLY Qty: 1 0RF Rx Instructions: As directed hydrocodone-acetaminophen 5-325 mg tablet 1 tab PO Q6H PRN (Reason: Postop pain) 5 Days Qty: 20 0RF (DME) Bone Growth Stimulator E0748 See Rx Instructions .Route .MEDSUPPLY Qty: 1 0RF Rx Instructions: As directed hydroxyzine HCl 50 mg tablet 50 mg PO BEDTIME Qty: 30 3RF Rx Instructions: TAKE ONE TABLET BY MOUTH AT BEDTIME NEEDED FOR sleep lisinopril 20 mg tablet 20 mg PO QAM tizanidine 4 mg tablet 4 mg PO Q6H PRN (Reason: muscle spasticity) Qty: 20 0RF Rx Instructions: do not exceed 3 doses per 24 hrs prednisone 20 mg tablet 20 mg PO TID Qty: 15 0RF Rx Instructions: 1 p.o. 3 times daily x3 days, 1 p.o. twice daily x2 days, 1 p.o. daily x2 days diclofenac sodium 75 mg tablet,delayed release (DR/EC) 75 mg PO Q12H PRN (Reason: pain) Qty: 20 0RF Discharge Orders: Discharge ED (Routine); Ordered 08/23/22 Ordered By: Rios Gonzales Referrals: Monster Grigsby MD [Primary Care Provider] - 1 week Patient Instructions: Lumbar Radiculopathy (ED), Pain Management Activity Restrictions/Additional Instructions: Please keep your appointment for the MRI already made in September. Please keep your appointment for follow-up with Dr. Whitaker Coding Level of Care Code ED Soft Hat Binder for Mattie Javed
[2022-08-23] MEDS: orphenadrine 30 mg/mL Inj 2 mL 60 MG IM (14:57)
[2022-08-23] MEDS: ketorolac 60 mg/2 mL INJ IM (14:57)
[2022-08-23] MEDS: dexamethasone 10 mg/mL INJ IM (14:58)
== END 2022-08-23 14:59 | disposition home or self-care (01) ==
PROVIDERS: Emergency Provider Emergency Medicine; PCP Family Medicine Adult Medicine
DX: M54.16 Radiculopathy, lumbar region (principal); I10 Essential (primary) hypertension; Z86.73 Personal history of transient ischemic attack (TIA), and cerebral infarction without residual deficits; F17.210 Nicotine dependence, cigarettes, uncomplicated
CPT/HCPCS: 96372; 99284; J1100; J1885; J2360

== ENCOUNTER 2022-09-07 06:37 | Emergency (ER) | payer OTHER, MEDICAID, SELFPAY ==
[2022-09-07 06:48] VITALS: BMI 32.1
[2022-09-07 06:51] VITALS: BP 93/68; PULSE 121; RESP 17; TEMP 37.1; O2SAT 98
--- NOTE | 2022-09-07 07:25 | W.ED.BACK ---
HPI - Back Pain/Injury General: Chief Complaint: Back Pain/Injury Stated Complaint: back pain spreading out into body Time Seen by Provider: 09/07/22 06:44 Source: patient Mode of arrival: ambulatory Limitations: no limitations History of Present Illness: Patient is a 57-year-old female presents to ED today with a complaint of lower back pain. Patient states pain has been present over the past 4 months or so. She is status post cervical fusion by Dr. Julianne harper in May. Patient has had 4 ED visits over the past 1.5 months for lower back pain. Patient tells me she has been prescribed diclofenac, prednisone, and zanaflex in which does help with her symptoms. She states she has an appointment with her PCP Dr. Grigsby tomorrow as well as an MRI of her lumbar spine for tomorrow. Plan will be to follow-up with Dr. Whitaker following the results of the MRI. Patient states pain radiates down into both of her legs but more so the right side all the way to my foot . MD elicited complaint: back pain Pertinent past history: prior back pain Onset (ago): month(s) Timing: constant Severity: severe Similar Symptoms Previously: Yes Location: lumbar spine and right lower back Radiation: right leg below the knee Exacerbating factors: movement, walking and lifting Relieving factors: none Associated symptoms: Reports no associated symptoms and difficulty walking (secondary to pain); Deny abdominal pain, chills, dysuria, fatigue, fever(s) or hematuria Treatments prior to arrival: NSAIDS and prescription analgesics Work related injury: No Review of Systems Const: Denies: fever(s), chills, body aches, fatigue or malaise Card: Denies: chest pain Resp: Denies: dyspnea GI: Denies: abdominal pain : Denies: flank pain, dysuria or hematuria Musc: Reports: back pain; Denies: neck pain, joint pain, joint swelling, muscle cramps, muscle weakness or decrease in muscle mass Skin/Breast: Denies: rash Neuro: Reports: difficulty walking (secondary to pain); Denies: numbness in extremities, weakness in extremities or sensory changes [facility] ED PFSH: Medical History Allergic rhinitis due to allergen Anxiety about health Chronic shoulder pain Hypertension Pes planus of both feet Porokeratosis PVD (peripheral vascular disease) with claudication Stroke Surgical History History of appendectomy History of heart artery stent Social History Smoking and tobacco status: current every day smoker (0.5ppd) cigarettes Packs smoked per day: 0.5 Second hand smoke exposure: Yes Alcohol intake: current Alcohol intake frequency: holidays/special occasions only Substance/Drug Use: never Caregiver/support person: No Lives independently: Yes Current occupational status: employed Physical Exam Const: COMMON NORMALS: patient oriented x3, no limitations, alert and well nourished GENERAL APPEARANCE: cooperative and in distress (appears uncomfortable ) NUTRITIONAL APPEARANCE: overweight ORIENTATION/CONSCIOUSNESS: Yes awake, Yes oriented to person, Yes oriented to place and Yes oriented to time Neck/C-Spine: CERVICAL SPINE: No Cervical spine tenderness Resp: COMMON NORMALS: normal respiratory effort and clear to auscultation bilaterally AUSCULTATION: clear to auscultation bilaterally Cardio: COMMON NORMALS: regular rate and regular rhythm RATE: regular rate RHYTHM: regular rhythm GI: COMMON NORMALS: Normal to inspection, nondistended, normoactive bowel sounds present, Soft to palpation, non-tender and no masses PALPATION: Yes Soft to palpation : COMMON NORMALS: Yes no CVA tenderness BLADDER/KIDNEY EXAM: Yes no CVA tenderness Back/Pelvis: COMMON NORMALS: no CVA tenderness THORACIC SPINE/UPPER BACK: Yes normal to inspection, No thoracic spinal tenderness, No paraspinal muscle tenderness and No paraspinal muscle spasm LUMBAR SPINE/LOWER BACK: No lumbar spinal tenderness, Yes paraspinal muscle tenderness Lumbar paraspinal muscle tenderness: right and No paraspinal muscle spasm PELVIS: Yes sciatic notch tenderness on the right SACROILIAC JOINTS: Yes SI joint(s) abnormal SI joint details: tender to palpation (R) SACRUM: no tenderness COCCYX: no tenderness Extremity: COMMON NORMALS: normal to inspection, full ROM, capillary refill normal, no joint enlargement, no clubbing, cyanosis or edema, no calf tenderness and no pedal edema GENERAL: Yes normal exam except as noted Neuro: COMMON NORMALS: patient oriented x3, moves all extremities, no focal motor deficits, no sensory deficits noted and gait normal SENSORIUM/ORIENTATION: Yes alert, Yes oriented to person, Yes oriented to place and Yes oriented to time MOTOR EXAM: 5/5 motor strength present throughout DEEP TENDON REFLEXES: Right patellar reflex intensity grade: 2+ and Left patellar reflex intensity grade: 2+ Skin: COMMON NORMALS: no rashes or lesions noted GENERAL SKIN EXAM: no rashes or lesions noted Course Vital Signs: Vital signs: Vital Signs Temperature 98.8 F 09/07/22 06:51 Pulse Rate 91 09/07/22 08:02 Respiratory Rate 20 H 09/07/22 08:02 Blood Pressure 93/68 09/07/22 06:51 Pulse Oximetry 98 09/07/22 08:02 Oxygen Delivery Me thod Room Air 09/07/22 06:51 MDM - Back Pain/Injury Medical Decision Making Patient has an MRI scheduled of her lumbar spine for tomorrow. She also has an appointment with her primary care provider for tomorrow as well. There is no acute neurologic deficits on her exam today. Patient is requesting refills of medications. I will refill her Diclofenac and Zanaflex. Patient has been on multiple rounds of steroids over the past month so we will forego this. Discharge Plan Discharge Patient Disposition: Home Clinical Impression: Lumbar radiculopathy Condition: Stable Prescriptions: Continued tizanidine 4 mg tablet 4 mg PO Q6H PRN (Reason: muscle spasticity) Qty: 20 0RF Rx Instructions: do not exceed 3 doses per 24 hrs diclofenac sodium 75 mg tablet,delayed release (DR/EC) 75 mg PO Q12H PRN (Reason: pain) Qty: 20 0RF No Action (DME) cervical collar See Rx Instructions .Route .MEDSUPPLY Qty: 1 0RF Rx Instructions: As directed hydrocodone-acetaminophen 5-325 mg tablet 1 tab PO Q6H PRN (Reason: Postop pain) 5 Days Qty: 20 0RF (DME) Bone Growth Stimulator [id number] See Rx Instructions .Route .MEDSUPPLY Qty: 1 0RF Rx Instructions: As directed hydroxyzine HCl 50 mg tablet 50 mg PO BEDTIME Qty: 30 3RF Rx Instructions: TAKE ONE TABLET BY MOUTH AT BEDTIME NEEDED FOR sleep lisinopril 20 mg tablet 20 mg PO QAM prednisone 20 mg tablet 20 mg PO TID Qty: 15 0RF Rx Instructions: 1 p.o. 3 times daily x3 days, 1 p.o. twice daily x2 days, 1 p.o. daily x2 days diclofenac sodium 75 mg tablet,delayed release (DR/EC) 75 mg PO BID Qty: 20 0RF tizanidine 4 mg capsule 4 mg PO Q6H PRN (Reason: muscle spasticity) Qty: 20 0RF Rx Instructions: do not exceed 3 doses per 24 hrs prednisone 20 mg tablet 20 mg PO TID Qty: 15 0RF Rx Instructions: for 3 days, then 1 po bid for 2 days then 1 po daily x 2 days Discharge Orders: Discharge ED (Routine); Ordered 09/07/22 Ordered By: Jeana Willson Referrals: Monster Grigsby MD [Primary Care Provider] - Activity Restrictions/Additional Instructions: As we discussed please follow-up with Dr. Grigsby tomorrow as scheduled as well as complete your scheduled MRI tomorrow for further evaluation of your back pain. Stand Alone Forms: Work/School Release Coding Level of Care Code ED [employer] for [employer]
[2022-09-07] MEDS: ketorolac 30 mg/mL INJ IM (07:36)
[2022-09-07 07:37] VITALS: RESP 20; O2SAT 98
[2022-09-07] MEDS: orphenadrine 30 mg/mL Inj 2 mL 60 MG IM (07:37)
[2022-09-07] MEDS: morphine 4 mg/mL SDV 1 mL IM (07:37)
[2022-09-07 08:02] VITALS: PULSE 91; RESP 20; O2SAT 98
== END 2022-09-07 08:03 | disposition home or self-care (01) ==
PROVIDERS: Emergency Provider Physician Assistant; PCP Family Medicine Adult Medicine
DX: M54.16 Radiculopathy, lumbar region (principal); I10 Essential (primary) hypertension; Z86.73 Personal history of transient ischemic attack (TIA), and cerebral infarction without residual deficits; F17.210 Nicotine dependence, cigarettes, uncomplicated
CPT/HCPCS: 96372; 99284; J1885; J2270; J2360

== ENCOUNTER 2022-09-08 10:49 | Outpatient (CLI) | payer OTHER, MEDICAID, SELFPAY ==
--- NOTE | 2022-09-08 11:00 | MR_ITS ---
WS: [id number] MRI LUMBAR SPINE NONCONTRAST HISTORY: low back pain with radiculopathy COMPARISON: None available. TECHNIQUE: Sagittal and axial multisequence imaging is submitted. Mild LEFT curvature lumbar spine. Mild diffuse disc desiccation. No marrow edema. Motion artifact is obscuring fine detail. Conus terminates normally at L1-2 disc level. L1-L2: Mild disc bulging. No stenosis. L2-L3: Normal. L3-L4: Mild annular disc bulging with moderate facet and ligamentum flavum hypertrophy. No significan t stenosis. L4-L5: Mild annular disc bulging with ligamentum flavum and facet arthritis. Mild encroachment upon t he ventral thecal sac and the subarticular recesses. On the sagittal imaging there does appear to be a small disc protrusion in the LEFT foramen which is not visualized on the axial imaging may be due t o motion. No high-grade stenosis. L5-S1: Normal. There is a small retroperitoneal soft tissue nodule measuring 14 mm posterior to the LEFT kidney of u ncertain etiology. This nodule was not present on the CT from 11/27/2020. Additional soft tissue nodul e measuring 11 mm in the posterior subcutaneous fat at the T8 level. MR/MR lumbar spine wo con* [id number] IMPRESSION: 1. No high-grade central stenosis. 2. Mild LEFT curvature lumbar spine. 3. Ligamentum flavum and facet arthritis from L3-4 through L4-5. Mild disc enc roachment upon the ventral thecal sac and subarticular recesses at L4-5. 4. Soft tissue nodules in the LEFT retroperitoneum and the posterior paraspina l soft tissues at T8 level. Suggest evaluation of the chest, abdomen and pelvis with IV and oral contrast. The retroperitoneal nodule was not present in 2020. May be of benign or malignant etiologies but needs to be evaluated further.
== END 2022-09-08 10:50 | disposition home or self-care (01) ==
LOC: RAD 10:55
PROVIDERS: PCP Family Medicine Adult Medicine; Visit Provider Orthopaedic Surgery
DX: M54.16 Radiculopathy, lumbar region (principal); M47.816 Spondylosis without myelopathy or radiculopathy, lumbar region; K68.9 Other disorders of retroperitoneum
CPT/HCPCS: 72148

== ENCOUNTER 2022-10-12 11:58 | Emergency (ER) | payer OTHER, MEDICAID, SELFPAY ==
--- NOTE | 2022-10-12 | CTR_ITS ---
PROCEDURE INFORMATION: Exam: CT Chest With Contrast; Diagnostic Exam date and time: 10/12/2022 1:56 PM Age: 57 years old Clinical indication: Chest wall pain; Additional info: Mass in neck TECHNIQUE: Imaging protocol: Diagnostic computed tomography of the chest with contrast. Radiation optimization: All CT scans at this facility use at least one of these dose optimization techniques: automated exposure control; mA and/or kV adjustment per patient size (includes targeted exams where dose is matched to clinical indication); or iterative reconstruction. Contrast material: OMNI 350; Contrast volume: 100 ml; Contrast route: INTRAVENOUS (IV); REPORTING DATA: Count of CT and Cardiac NM exams in prior 12 months: This patient has received 0 known CTs and 0 known cardiac nuclear medicine studies in the 12 months prior to the current study. COMPARISON: CR XR chest 1V [id number] 12/19/2018 2:04 PM RADIATION DOSE METRICS: Total DLP (mGy-cm): 325.4 FINDINGS: Lungs: Emphysematous changes. Several largely right upper lung field areas of airspace opacification measuring up to 3.2 cm, likely reflecting metastatic. Pleural spaces: Unremarkable. No pneumothorax. No pleural effusion. Heart: Unremarkable. No cardiomegaly. No pericardial effusion. Coronary arteries: Coronary artery atherosclerotic calcifications. Mediastinal space: Multiple somewhat low-density mass lesions throughout the mediastinum measuring up to at least 4.9 cm in the pretracheal region, likely reflecting metastatic disease, the mass also extends to the right hilar region. Lymph nodes: See below. Vasculature: Unremarkable. No aortic aneurysm. Liver: Hepatic steatosis. Adrenal glands: Bilateral adrenal gland enlargement measuring up to 4.7 cm on the right and 4.5 cm on the left, likely reflecting metastatic disease. Bones/joints: Unremarkable. No acute fracture. Soft tissues: Several right breast/lateral chest wall soft tissue masses are seen measuring to 18 mm in the right lateral chest wall subcutaneous fat, concerning for metastatic disease. Left upper posterior abdominal 15 mm soft tissue density lesion somewhat posterior to the left kidney, concerning for metastatic disease. Right lower neck mass lesion incompletely visualized extending into the upper right thorax posterior to the clavicle measuring up to at least 5.6 cm, concerning malignancy. Suspected adenopathy is also seen in the right lower neck .A left supraclavicular 2.5 cm node also present with several additional suspected enlarged lymph nodes suspected. CT/CT chest w con* [id number] IMPRESSION: 1. Multiple somewhat low-density mass lesions throughout the mediastinum measuring up to at least 4.9 cm in the pretracheal region, likely reflecting metastatic disease, the mass also extends to the right hilar region. 2. Coronary artery atherosclerotic calcifications. 3. Several right breast/lateral chest wall soft tissue masses are seen measuring to 18 mm in the right lateral chest wall subcutaneous fat, concerning for metastatic disease. 4. Bilateral adrenal gland enlargement measuring up to 4.7 cm on the right and 4.5 cm on the left, likely reflecting metastatic disease. 5. Hepatic steatosis. 6. Emphysematous changes. 7. Several largely right upper lung field areas of airspace opacification measuring up to 3.2 cm, likely reflecting metastatic. 8. Left upper posterior abdominal 15 mm soft tissue density lesion somewhat posterior to the left kidney, concerning for metastatic disease. 9. Right lower neck mass lesion incompletely visualized extending into the upper right thorax posterior to the clavicle measuring up to at least 5.6 cm, concerning malignancy. Suspected adenopathy is also seen in the right lower neck. A left supraclavicular 2.5 cm node also present with several additional suspected enlarged lymph nodes suspected.
[2022-10-12 12:21] VITALS: BMI 30.2
[2022-10-12 12:25] VITALS: BP 111/74; PULSE 107; RESP 18; TEMP 36.8; O2SAT 97
[2022-10-12 13:18] VITALS: BP 122/81; RESP 18
--- NOTE | 2022-10-12 13:25 | CTR_ITS ---
PROCEDURE INFORMATION: Exam: CT Neck With Contrast Exam date and time: 10/12/2022 1:56 PM Age: 57 years old Clinical indication: Neck pain; Prior surgery; Surgery date: 1-6 months; Surgery type: Fusion; Additional info: Neck mass TECHNIQUE: Imaging protocol: Computed tomography of the neck with contrast. Radiation optimization: All CT scans at this facility use at least one of these dose optimization techniques: automated exposure control; mA and/or kV adjustment per patient size (includes targeted exams where dose is matched to clinical indication); or iterative reconstruction. Contrast material: OMNI 350; Contrast volume: 100 ml; Contrast route: INTRAVENOUS (IV); REPORTING DATA: Count of CT and Cardiac NM exams in prior 12 months: This patient has received 0 known CTs and 0 known cardiac nuclear medicine studies in the 12 months prior to the current study. COMPARISON: MR cervical spin wo con* [id number] 04/19/2022 11:52 AM RADIATION DOSE METRICS: Total DLP (mGy-cm): 225.9 FINDINGS: Tubes, catheters and devices: Patent left subclavian origin stent. Brain: The visible portion of the brain is normal. Mastoid air cells: Small bilateral mastoid effusion. Paranasal sinuses: The paranasal sinuses are clear. Pharynx: The nasopharynx is unremarkable. There is no significant pharyngeal tonsillar enlargement. The oropharynx is unremarkable. There is no significant palatine tonsillar enlargement. The hypopharynx is unremarkable. There is no significant lingual tonsillar enlargement. Larynx: The larynx and epiglottis are normal. Prevertebral and retropharyngeal spaces: There is no fluid or edema in the retropharyngeal space. Salivary glands: there is a 2.2 x 1.9 cm intensely enhancing mass involving the superficial aspect of the right parotid gland extending nearly to the skin surface. The left parotid gland is normal. The submandibular glands are normal. Thyroid: The thyroid gland is unremarkable. Lymph nodes: There is an enlarged irregular lymph node in the left posterior triangle measuring 14 x 12 mm. No jugular chain lymphadenopathy. Trachea: The visible portion of the trachea is normal. Lungs: There are multiple irregular nodules in the right upper lung measuring up to 15 mm. Mediastinal space: There is a heterogeneously enhancing mass in the upper mediastinum measuring approximately 10 x 6 cm. Numerous smaller enhancing nodules are seen in the anterior upper mediastinum. There is bulky bilateral supraclavicular lymphadenopathy. Confluent lymph node mass in the right supraclavicular region measures approximately 7.8 x 3.7 cm. The mediastinal mass partially compresses and narrows the right brachiocephalic vein which remains patent. The left brachiocephalic vein and superior vena cava are patent. The superior vena cava mildly compressed. Bones/joints: No acute fracture. There is moderate degenerative disease in the cervical spine. There is bone sclerosis involving the anterior aspect of the left 1st rib. There is an enhancing mass expanding the distal margin of the left 1st rib and involving the costal cartilage. intact lower anterior cervical fusion. Vasculature: There is mild atherosclerotic disease of the carotid arteries bilaterally. Patent subclavian arteries. There is focal calcific plaque at the right vertebral artery origin with possible stenosis. The artery is normal distally. The left vertebral artery is unremarkable. Soft tissues: No soft tissue edema or fluid collection. CT/CT neck w con* [id number] IMPRESSION: 1. Palpable mass in the right neck corresponds to a 22 mm enhancing nodule in the superficial right parotid gland. This is likely a metastasis. 2. Large upper mediastinal mass with extensive mediastinal and bilateral supraclavicular lymphadenopathy, and isolated left posterior triangle lymph node enlargement consistent with faye metastases. 3. Multiple large right upper lung nodules. Metastases versus primary neoplasm. 4. 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
[2022-10-12 13:33] VITALS: RESP 16
[2022-10-12] MEDS: ondansetron 2 mg/ML SDV 2 mL 4 MG IVP (13:33)
[2022-10-12] MEDS: morphine 4 mg/mL SDV 1 mL IVP (13:33)
[2022-10-12 13:35] VITALS: BP 133/93; PULSE 99; RESP 16; O2SAT 100
[2022-10-12 13:36] LABS: Basophils % 0.2 %; Eosinophils # 0.2 10^3/uL (0.0-0.8); Eosinophils % 1.4 %; Hemoglobin 12.2 g/dL (11.5-15.3); Lymphocytes # 1.9 10^3/uL (0.8-4.8); Lymphocytes % 14.2 %; Mean Corpuscular Hemoglobin 30.3 pg (28.0-34.0); Mean Corpuscular Volume 91.8 fl (81-99); Monocytes # 0.9 10^3/uL (0.2-0.9); Monocytes % 6.2 %; Neutrophils # 10.62 10^3/uL (1.8-7.7); Neutrophils % 77.6 %; Nucleated Red Blood Cells % 0 %; Platelet Count 377 10^3/cmm (130-400); Red Blood Count 4.03 10^6/uL (4.1-5.3); Red Cell Distribution Width 13.6 % (12.1-15.1); White Blood Count 13.7 10^3/uL (4.0-10.0)
[2022-10-12] MEDS: iohexol 350 mg/mL 500 mL Btl (per mL) IV (13:53)
[2022-10-12 13:56] LABS: Alanine Aminotransferase 32 U/L (0-33); Albumin Level 4.3 g/dL (3.5-5.2); Alkaline Phosphatase 98 U/L (35-105); Anion Gap 16.9 (5-19); Aspartate Amino Transferase 18 U/L (0-32); Blood Urea Nitrogen 20 mg/dL (6-20); Calcium 9.2 mg/dL (8.5-10.5); Carbon Dioxide 25 mmol/L (22-29); Chloride 99 mmol/L (98-107); Globulin 3.5 g/dL (1.3-4.6); Glomerular Filtration Rate 51.2 mL/min (90-130); Glucose 93 mg/dL (65-115); Osmolality Calculated 286 mOsm/kg (285-295); Potassium 3.9 mmol/L (3.5-5.1); Sodium 137 mmol/L (136-145); Total Bilirubin 0.5 mg/dL (0.15-1.2); Total Protein 7.8 g/dL (6.6-8.7)
--- NOTE | 2022-10-12 14:56 | W.ED.SKABFB ---
HPI - Skin/Abscess/Foreign Bdy General: Chief complaint: Skin/Abscess/Foreign Body Stated complaint: chest pain/generalized pain Time Seen by Provider: 10/12/22 13:18 History of Present Illness: 57-year-old female with a history of tobacco abuse presents emergency room today with vague complaints of right-sided neck mass and swollen lymph node within the past 2 to 3 weeks patient described the pain as throbbing sensation with severity of 7 out of 10. Is any difficulty breathing, coughing or coughing up blood. Patient reveals that she was seen and evaluated by primary physician and was she had more muscle spasm. She was scheduled for outpatient CT scan patient has any night sweats or recent weight changes. Associated symptoms: Deny chills, fever(s), nausea or vomiting Review of Systems General: Reports: 10 or more systems reviewed and unremarkable except in HPI and below Const: Reports: fatigue and malaise; Denies: fever(s), chills, change in appetite, night sweats, diaphoresis or change in sleep pattern ENMT: Denies: throat pain, uvular edema, enlarged tonsils, odynophagia, hoarseness, mouth pain, oral sores or bleeding gums Card: Denies: chest pain, palpitations, irregular heart rhythm or edema Resp: Denies: dyspnea, productive cough, non-productive cough, wheezing, stridor, pain on inspiration or change in phlegm color GI: Denies: abdominal pain, nausea, vomiting, hematemesis, coffee ground emesis, dysphagia, heartburn, early satiety, diarrhea, constipation, bloating, GI cramping, belching or excessive flatus Musc: Reports: muscle cramps and other (Generalized body aches); Denies: muscle weakness or decrease in muscle mass Neuro: Denies: headache(s), numbness in extremities, weakness in extremities, sensory changes, lack of coordination or difficulty walking Psych: Reports: anxiety; Denies: depression Paul/Lymph: Reports: enlarged lymph nodes (right side of neck ) and tender lymph nodes; Denies: easy bleeding, petechiae or purpura [facility] PFSH: Medical History (Updated 10/12/22 @ 15:50 by Connor Banda MD) Allergic rhinitis due to allergen Anxiety about health Chronic shoulder pain Hypertension Lumbar pain with radiation down both legs Lymphadenopathy of right cervical region Pes planus of both feet Plantar porokeratosis, acquired Porokeratosis PVD (peripheral vascular disease) with claudication Retroperitoneal lymphadenopathy Stroke Surgical History (Updated 10/06/22 @ 07:43 by Monster Grigsby MD) History of appendectomy History of heart artery stent Status post cervical spinal fusion Dr. Whitaker 05/25/2022 Social History Smoking and tobacco status: current every day smoker (0.5ppd) cigarettes Packs smoked per day: 0.5 Second hand smoke exposure: Yes Alcohol intake: current Alcohol intake frequency: holidays/special occasions only Substance/Drug Use: never Caregiver/support person: No Lives independently: Yes Current occupational status: employed Physical Exam HENMT: COMMON NORMALS: normocephalic, atraumatic and Normal external nose present HEAD & SCALP: normal to inspection, normocephalic and atraumatic FACE & SINUS: normal facial exam and sinuses nontender NOSE: Normal external nose present, Normal nares present and No nasal polyps present MOUTH: Normal oral and palatal mucosa present, lip normal, tongue normal and Normal salivary glands and ducts present THROAT: no uvular edema Neck/C-Spine: COMMON NORMALS: no JVD GENERAL: Yes anterior neck swelling (rect neck with large palpable mass. some tenderness with palpation.), Yes tender, No torticollis, No tracheal deviation and No tracheostomy present CAROTIDS: Yes normal carotid upstroke, Yes bounding pulses and Yes bruit CERVICAL SPINE: Yes cervical ROM normal, Yes normal cervical lordosis, Yes cervical ROM abnormal, Yes pain with cervical ROM and No loss of normal cervical lordosis Lymph: LYMPHATIC: lymphadenopathy (right cervical ) Chest: COMMONS NORMALS: normal inspection of the chest, normal palpation of entire chest wall, normal inspection of the breasts and normal palpation of the breasts Breast/axilla inspection: Yes normal inspection of the breasts BREAST/AXILLA PALPATION: Yes normal palpation of the breasts Resp: COMMON NORMALS: normal respiratory effort, No retractions, No use of accessory muscles, clear to auscultation bilaterally and percussion normal AUSCULTATION: clear to auscultation bilaterally PERCUSSION: percussion normal Cardio: COMMON NORMALS: no JVD, regular rate, regular rhythm, S1 normal heart sound present, S2 normal heart sound present, No gallops present (Cardio), No clicks present (Cardio), No murmurs present (Cardio), No rub (Cardio) and Peripheral pulses 2+ throughout RATE: regular rate RHYTHM: regular rhythm HEART SOUNDS: S1 normal heart sound present and S2 normal heart sound present PERIPHERAL PULSES: Peripheral pulses 2+ throughout GI: COMMON NORMALS: Normal to inspection, nondistended, normoactive bowel sounds present, Soft to palpation, non-tender, No hepatosplenomegaly present, no masses and no bruits PALPATION: Yes Soft to palpation and Yes No hepatosplenomegaly present Extremity: GENERAL: Yes normal exam except as noted and No amputation Course ED course: Patient made comfortable emergency room. She was given IV pain medication. CT scan was ordered. CT scan findings with radiologist. Reevaluation(s): Reevaluation #1: Spoke with the radiologist about the CT findings Time: 14:56 Reevaluation #2: Discussed patient with Dr. De La Rosa the oncologist. I discussed the CT finding with him and option of admitting or transferring patient but he felt like patient to be seen in his clinic for further evaluation and treatment. I provided him with patient's name and date of . His plan is to call patient for immediate appointment on Monday. Time: 15:29 Consultations: Consultation #1: Discussed patient with radiologist and Dr. De La Rosa oncologist Vital Signs: Vital signs: Vital Signs Temperature 98.2 F 10/12/22 12:25 Pulse Rate 111 H 10/12/22 16:00 Respiratory Rate 16 10/12/22 16:00 Blood Pressure 113/78 10/12/22 16:00 Pulse Oximetry 99 10/12/22 16:00 Oxygen Delivery Me thod Room Air 10/12/22 12:25 MDM - Skin/Abscess/Foreign Bdy Medicial Decision Making Patient was made comfortable emergency room. She was given IV pain medication. CT scan and blood work was obtained rapidly. I discussed CT finding with patient and the radiologist. Spoke with Dr. De La Rosa the oncologist on-call about the CT findings and the need for close follow-up. Plan was to send patient home for outpatient follow-up before Monday. So discussed with patient at length patient and patient understood the discharge plan. Lab Data 10/12/22 13:22 10/12/22 13:[address] 10/12/22 00:00 IMPRESSION: 1. Multiple somewhat low-density mass lesions throughout the mediastinum measuring up to at least 4.9 cm in the pretracheal region, likely reflecting metastatic disease, the mass also extends to the right hilar region. 2. Coronary artery atherosclerotic calcifications. 3. Several right breast/lateral chest wall soft tissue masses are seen measuring to 18 mm in the right lateral chest wall subcutaneous fat, concerning for metastatic disease. 4. Bilateral adrenal gland enlargement measuring up to 4.7 cm on the right and 4.5 cm on the left, likely reflecting metastatic disease. 5. Hepatic steatosis. 6. Emphysematous changes. 7. Several largely right upper lung field areas of airspace opacification measuring up to 3.2 cm, likely reflecting metastatic. 8. Left upper posterior abdominal 15 mm soft tissue density lesion somewhat posterior to the left kidney, concerning for metastatic disease. 9. Right lower neck mass lesion incompletely visualized extending into the upper right thorax posterior to the clavicle measuring up to at least 5.6 cm, concerning malignancy. Suspected adenopathy is also seen in the right lower neck. A left supraclavicular 2.5 cm node also present with several additional suspected enlarged lymph nodes suspected. Neck CT 10/12/22 13:25 IMPRESSION: 1. Palpable mass in the right neck corresponds to a 22 mm enhancing nodule in the superficial right parotid gland. This is likely a metastasis. 2. Large upper mediastinal mass with extensive mediastinal and bilateral supraclavicular lymphadenopathy, and isolated left posterior triangle lymph node enlargement consistent with faye metastases. 3. Multiple large right upper lung nodules. Metastases versus primary neoplasm. 4. 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 ADDENDUM: 10/12/22 1459 THIS REPORT CONTAINS FINDINGS THAT MAY BE CRITICAL TO PATIENT CARE. The findings were verbally communicated via telephone conference with CONNOR BANDA at 2:58 PM CDT on 10/12/2022. The findings were acknowledged and understood. Laboratory Results WBC 13.7 10^3/uL (4.0-10.0) H 10/12/22 13:22 RBC 4.03 10^6/uL (4.1-5.3) L 10/12/22 13:22 Hgb 12.2 g/dL (11.5-15.3) 10/12/22 13:22 Hct 37.0 % (37.0-47.0) 10/12/22 13:22 MCV 91.8 fl (81-99) 10/12/22 13:22 MCH 30.3 pg (28.0-34.0) 10/12/22 13:22 MCHC 33.0 g/dL (30.0-36.0) 10/12/22 13:22 RDW 13.6 % (12.1-15.1) 10/12/22 13:22 Plt Count 377 10^3/cmm (130-400) 10/12/22 13:22 MPV 9.0 fL (7.4-10.4) 10/12/22 13:22 Neut % (Auto) 77.6 % 10/12/22 13:22 Lymph % (Auto) 14.2 % 10/12/22 13:22 [place] % (Auto) 6.2 % 10/12/22 13:22 Eos % (Auto) 1.4 % 10/12/22 13:22 Baso % (Auto) 0.2 % 10/12/22 13:22 Neut # (Auto) 10.62 10^3/uL (1.8-7.7) H 10/12/22 13:22 Lymph # (Auto) 1.9 10^3/uL (0.8-4.8) 10/12/22 13:22 [place] # (Auto) 0.9 10^3/uL (0.2-0.9) 10/12/22 13:22 Eos # (Auto) 0.2 10^3/uL (0.0-0.8) 10/12/22 13:22 Baso # (Auto) 0.0 10^3/uL (0.0-0.1) 10/12/22 13:22 Nucleated RBC % (auto) 0 % 10/12/22 13:22 Nucleated RBCs # 0.0 /100WBC 10/12/22 13:22 Sodium 137 mmol/L (136-145) 10/12/22 13:22 Potassium 3.9 mmol/L (3.5-5.1) 10/12/22 13:22 Chloride 99 mmol/L (98-107) 10/12/22 13:22 Carbon Dioxide 25 mmol/L (22-29) 10/12/22 13:22 Anion Gap 16.9 (5-19) 10/12/22 13:22 BUN 20 mg/dL (6-20) 10/12/22 13:22 Creatinine 1.1 mg/dL (0.5-0.9) H 10/12/22 13:22 GFR Calculation 51.2 mL/min (90-130) L 10/12/22 13:22 Glucose 93 mg/dL (65-115) 10/12/22 13:22 Calculated Osmolality 286 mOsm/kg (285-295) 10/12/22 13:22 Calcium 9.2 mg/dL (8.5-10.5) 10/12/22 13:22 Total Bilirubin 0.5 mg/dL (0.15-1.2) 10/12/22 13:22 AST 18 U/L (0-32) 10/12/22 13:22 ALT 32 U/L (0-33) 10/12/22 13:22 Alkaline Phosphatase 98 U/L (35-105) 10/12/22 13:22 Total Protein 7.8 g/dL (6.6-8.7) 10/12/22 13:22 Albumin 4.3 g/dL (3.5-5.2) 10/12/22 13:22 Globulin 3.5 g/dL (1.3-4.6) 10/12/22 13:[address] scan reviewed. Also discussed the CT finding with the radiologist. Discharge Plan Discharge Patient Disposition: Home Clinical Impression: Lung mass, Lymphadenopathy of head and neck region, Metastatic disease, UTI (urinary tract infection) Condition: Stable Prescriptions: New Percocet 5-325 mg tablet 1 tab PO Q8H PRN (Reason: pain) Qty: 14 0RF Zofran 4 mg PO TID PRN (Reason: nausea) Qty: 20 0RF Macrobid 100 mg capsule 100 mg PO BID 10 Days Qty: 20 0RF Rx Instructions: must administer with a meal/food No Action (DME) cervical collar See Rx Instructions .Route .MEDSUPPLY Qty: 1 0RF Rx Instructions: As directed prednisone 20 mg tablet 60 mg PO DAILY 5 Days Qty: 15 0RF methocarbamol 750 mg tablet 750 mg PO Q8H Qty: 30 0RF ibuprofen 800 mg tablet 800 mg PO Q8H PRN (Reason: pain) Qty: 60 0RF lisinopril 20 mg tablet 20 mg PO QAM Qty: 90 1RF buspirone 10 mg tablet 10 mg PO BID Qty: 60 3RF tramadol 50 mg tablet 50 mg PO Q6H PRN (Reason: pain) 15 Days Qty: 60 0RF (DME) Bone Growth Stimulator [id number] See Rx Instructions .Route .MEDSUPPLY Qty: 1 0RF Rx Instructions: As directed hydroxyzine HCl 50 mg tablet 50 mg PO BEDTIME Qty: 30 3RF Rx Instructions: TAKE ONE TABLET BY MOUTH AT BEDTIME NEEDED FOR sleep acetaminophen 650 mg tablet extended release 650 mg PO Q8H PRN (Reason: pain) Qty: 100 0RF Discharge Orders: Discharge ED (Routine); Ordered 10/12/22 Ordered By: Connor Banda Referrals: Monster Grigsby MD [Primary Care Provider] - Isrrael De La Rosa MD [Hospitalist] - 1-3 days Discharge Diet: Advance as tolerated Patient Instructions: Opioid Safety, Pain Management Activity Restrictions/Additional Instructions: Please follow-up with your primary physician and Dr. De La Rosa as scheduled to emergency room if you have any difficulty breathing or if the mass is getting bigger and more painful Stand Alone Forms: Work/School Release Coding Level of Care Code ED Electric Bath Attendant for Mattie Javed
[2022-10-12 16:00] VITALS: BP 113/78; PULSE 111; RESP 16; O2SAT 99
--- NOTE | 2022-10-13 13:52 | DCPLANNER ---
Addendum entered by Lashanda Rodríguez 10/17/22 15:58: Patient had a follow up appointment scheduled with oncology - patient did attend appointment. Original Note: quality manager had message to schedule a follow up appointment for patient with oncology. quality manager sent patients information to the front office staff at oncology. Patients information will be printed and reviewed. Clinic will call patient with appointment information.
== END 2022-10-12 16:16 | disposition home or self-care (01) ==
PROVIDERS: Emergency Provider Family Medicine; PCP Family Medicine Adult Medicine
DX: R59.0 Localized enlarged lymph nodes (principal); R91.8 Other nonspecific abnormal finding of lung field; N39.0 Urinary tract infection, site not specified
CPT/HCPCS: 70491; 71260; 80053; 85025; 96374; 96375; 99285; J2270; J2405; Q9967

== ENCOUNTER 2022-10-18 08:12 | Outpatient (CLI) | payer OTHER, MEDICAID, SELFPAY ==
--- NOTE | 2022-10-18 08:30 | US_ITS ---
WS: [id number] ULTRASOUND-GUIDED RIGHT SUPRACLAVICULAR BIOPSY CLINICAL INFORMATION: US directed core needle biopsy of right neck mass COMPARISON: CT neck October 12, 2022 FINDINGS: The procedure including risks, benefits, and complications were discussed with the patient who agreed to proceed. Using sterile technique patient was prepped and draped in the usual sterile fashion. Aft er 1% lidocaine utilizing real-time ultrasound guidance eight 18-gauge cores were obtained of the RIG HT supraclavicular lymphadenopathy. No immediate complications. US/US biopsy [place] node [id number] IMPRESSION: 1. Uncomplicated ultrasound-guided RIGHT supraclavicular lymphadenopathy. 2. Pathology is pending.
[2022-10-19 15:41] LABS: Lymphoma Profile (BBPL) See Report
[2022-10-24 07:53] LABS: PD-L1 (Clone 22C3) by IHC BBPL See Report
== END 2022-10-18 08:13 | disposition home or self-care (01) ==
PROVIDERS: PCP Family Medicine Adult Medicine; Visit Provider Internal Medicine Medical Oncology
DX: C77.0 Secondary and unspecified malignant neoplasm of lymph nodes of head, face and neck (principal); C80.1 Malignant (primary) neoplasm, unspecified; R59.0 Localized enlarged lymph nodes
CPT/HCPCS: 38505; 76942; 88184; 88185; 88307; 88341; 88342

== ENCOUNTER 2022-11-05 06:15 | Outpatient (CLI) | payer OTHER, MEDICAID, SELFPAY ==
--- NOTE | 2022-11-05 12:30 | PETR_ITS ---
PROCEDURE INFORMATION: Exam: PET/CT Skull Base to Mid-thigh Exam date and time: 11/05/2022 12:52 PM Age: 57 years old Clinical indication: Condition or disease; Primary cancer: Secondary malignant neoplasm of unspecified site; Initial oncological staging assessment; Additional info: Staging, unknown primary LABS AND CLINICAL REPORTS: Glucose: 100 mg/dl Treatment strategy for malignancy (PET staging): Initial Staging (PI) TECHNIQUE: Imaging protocol: Following at least four-hour fasting and following the injection of radiopharmaceutical, low dose CT images were obtained. Then, PET images were obtained. Attenuation corrected images were constructed using the CT scan. Fused images of PET and CT were reviewed. The standardized uptake values (SUV) reported below are maximum values within a region of interest, expressed in gm/ml. Exam includes orbital meatal line to mid-thigh. Radiopharmaceutical: 14.4 mCi F-18 FDG (Fluorodeoxyglucose), IV. Time of imaging post radiopharmaceutical administration: 1 hour Injection site: Right hand COMPARISON: CT chest w con* [id number] 10/12/2022 1:56 PM, CT neck 10/12/2022, CT abdomen and pelvis 11/27/2020 FINDINGS: Brain: Visualized brain has normal physiologic uptake. Pharynx: No abnormal uptake. Larynx: No abnormal uptake. Lungs, pleura and trachea: Abnormal uptake in the subpleural fat adjacent to the right 3rd rib is noted where there is a soft tissue density nodule measuring 1.6 x 1.0 cm on series 3, image 46, SUV max 3.9. There is non radiotracer avid mild biapical pleural scarring. A solid non radiotracer avid spiculated right upper lobe nodule on series 3, image 48 measures 1.3 x 1.0 cm with slightly more inferiorly located clustered pulmonary nodules extending to the superior right hilar region measuring up to approximately 1.0 cm in diameter, SUV max 3.7. Heart: A soft tissue density mass in the anterior pericardial fat pad measures 7.4 x 4.7 cm on series 3, image 62, SUV max 7.7. Mediastinal space: No abnormal uptake. Liver: No abnormal uptake. Gallbladder and bile ducts: No abnormal uptake. Pancreas: No abnormal uptake. Spleen: No abnormal uptake. Adrenal glands: A radiotracer avid mass in the left adrenal gland measures approximately 4.4 x 4.5 cm, SUV max 9.4. A radiotracer avid mass in the right adrenal gland measures 5.8 x 4.4 cm, SUV max 7.1. Kidneys and ureters: Normal physiologic uptake. A soft tissue density nodule posterior to the left kidney measuring 2 cm on series 3, image 98 is present, SUV max 4.3. Stomach and bowel: No abnormal uptake. Intraperitoneal and retroperitoneal spaces: There is a small amount of free fluid within pelvis. Vasculature: No abnormal uptake. There is a stent in the proximal left subclavian artery. Diffuse atherosclerotic changes are noted. Lymph nodes: Numerous radiotracer avid soft tissue density nodules which may represent lymph nodes are identified. Examples: Adjacent to the right parotid gland measuring 2.4 cm on image 24, SUV max 6.1; in the right posterior neck on image 24 measuring 1.5 cm, SUV max 8.0; in the bilateral supraclavicular spaces, greatest on the right where there is a conglomerate soft tissue density mass extending into the right paratracheal space measuring up to 9.2 x 4.9 cm on image 39 of series 3, SUV max 10.9; throughout the mediastinum and right hilar region, for example in the precarinal space measuring 6.8 x 4.2 cm on series 3, image 59, SUV max 7.6 and in the right hilar region within SUV max 6.3 measuring 4.4 x 2.1 cm on series 3, image 67. A left periesophageal lymph node measures 1.2 cm on series 3, image 75, SUV max 4.4. A right retrocrural lymph node measures 1.9 x 1.2 cm on series 3, image 95, SUV max 4.3. A soft tissue density mass versus lymph node at the right pelvic sidewall measures 3.1 x 2.6 cm on image 134, SUV max 4.6 and is new since the prior CT abdomen and pelvis. Bones/joints: There is mild diffuse vertebral body spondylosis. Anterior metallic fusion is present from C4 through C7. Radiotracer avid osseous lesions are identified. Examples: Within a probable pathologic fracture with mild displacement involving the spinous process of C7 which appears new since the prior CT neck of 10/12/2022, associated with a lucent lesion extending from the spinous process into the left lamina on CT series 3, image 37, SUV max 7.6; an intramedullary proximal right femoral shaft lesion measures 1.7 cm, SUV max 4.1; a rounded lucent lesion in the superior left femoral head measures 1.9 cm on series 3, image 144, SUV max 5.7; uptake in the medial left iliac bone on series 3, image 129 is noted without a well-defined lesion, SUV max 4.1; an expansile soft tissue density mass arises from the anterior left rib measuring 5.1 x 2.8 cm, SUV max 8.8 abnormal uptake in the T9 vertebral body is noted posteriorly where there is an approximately 1.5 cm mixed lucent and sclerotic lesion, SUV max 5.3; Soft tissues: Radiotracer avid soft tissue density nodules are identified. Examples: Left temporoparietal scalp measuring 2.5 x 0.7 cm on series 3, image 6, SUV max 4.1; adjacent to the posteromedial left scapula measuring 1.6 cm on series 3, image 40, SUV max 5.6; in the subcutaneous fat of the posterior left chest wall measuring 5.0 x 2.9 cm on series 3, image 69, SUV max 10.5; along the lateral left chest wall musculature measuring 2.7 x 0.7 cm on series 3, image 75, SUV max 6.8. A large solid-appearing peripherally calcified mass centered in the right gluteal musculature extending through the sciatic notch into the right pelvic sidewall is new since the prior CT abdomen and pelvis measuring 10.1 x 11.7 cm on series 3, image 143, SUV max 11.1; and new in the left gluteal musculature measuring 3.8 x 2.1 cm on series 3, image 143, SUV max 9.4. Additional radiotracer avid soft tissue density nodules are present for example in the medial right breast measuring 1.5 cm on series 3 image 66, SUV max 5.9 and in the subcutaneous fat of the proximal right thigh laterally measuring 1.8 cm on series 3, image 167, SUV max 4.6. A superior mediastinal soft tissue density nodule in the left periesophageal space on series 3, image 43 measures 2.7 x 2.1 cm, SUV max 8.0. Some of these soft tissue density nodules are not radiotracer avid, for example in the medial left breast measuring 1.0 cm on series 3, image 78, SUV max 2.1. There are new scattered soft tissue density nodules in the mesentery compared with the CT of 09/27/2020, without significant uptake, for example measuring 1.2 cm in the mid abdomen on series 3, image 113, SUV max 1.3. Mild non radiotracer avid fat stranding throughout the mesentery and omentum is also noted. METRICS: Mediastinal blood pool: SUV max 3.0 Liver uptake: SUV max 3.3, SUV mean 2.7 [facility] [id number] IMPRESSION: 1. Radiotracer avid soft tissue density nodules and masses are noted, the largest of which is centered in the right gluteal musculature compatible with malignancy. 2. Radiotracer avid lymphadenopathy in the neck, chest, abdomen and pelvis consistent with malignancy. 3. Radiotracer avid bilateral adrenal masses are compatible with metastatic lesions. 4. Radiotracer avid osseous lesions are present which are consistent with metastases, associated with a spinous process pathologic fracture at the level C7. 5. Right upper lobe nodules are present, some of which are radiotracer avid. All these nodules are concerning for metastases. 6. Additional nonurgent findings as detailed above.
== END 2022-11-05 06:16 | disposition home or self-care (01) ==
LOC: RAD 11-07 06:15
PROVIDERS: PCP Family Medicine Adult Medicine; Visit Provider Internal Medicine Medical Oncology
DX: C79.9 Secondary malignant neoplasm of unspecified site (principal)
CPT/HCPCS: 78815; A9552

== ENCOUNTER 2022-11-10 11:47 | Emergency (ER) | payer OTHER, MEDICAID, SELFPAY ==
[2022-11-10 12:54] VITALS: BMI 27.5
[2022-11-10 13:11] VITALS: BP 112/66; PULSE 70; RESP 16; TEMP 36.9; O2SAT 97
--- NOTE | 2022-11-10 14:15 | W.ED.GENADLT ---
HPI - General Adult General: Chief complaint: General Medical Stated complaint: lots of body pain, sore on neck Time Seen by Provider: 11/10/22 13:01 History of Present Illness: Patient is in today for pain. She reports that she has severe pain in both of her butt cheeks and also her neck. She reports that she has been seeing Dr. De La Rosa and she recently had a biopsy to determine what type of cancer. She reports that she received a letter telling her what type of cancer it was but she cannot recall what is set on the letter. She states that she is developing new lumps and nodules even since her last appointment with Dr. De La Rosa. She states that the lump on her neck feels like it is getting large and making it kind of difficult for her to breathe. She does offer that she has been off of her anxiety medication and so she does know that she is more anxious. She states that Dr. De La Rosa has her on extended release morphine and oxycodone but it does not seem to be cutting her pain. She does also report that she has recently had her PET scan. She denies any fever or chills. Associated symptoms: Reports dyspnea (States unable to tell if this is anxiety or the mass on her neck); Deny chest pain or palpitations Review of Systems Const: Denies: fever(s) or chills Card: Denies: chest pain or palpitations Resp: Reports: dyspnea (States unable to tell if this is anxiety or the mass on her neck) Musc: Reports: other (Reports severe pain bilateral buttocks, neck, back) [facility] ED PFSH: Medical History (Updated 11/10/22 @ 14:30 by SOCORRO Tobias) Allergic rhinitis due to allergen Anxiety about health Degenerative disc disease, cervical Hypertension Peripheral arterial disease 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 Whitaker 05/25/2022 Social History Smoking and tobacco status: current every day smoker (0.5ppd) cigarettes Packs smoked per day: 0.5 Second hand smoke exposure: Yes Alcohol intake: current Alcohol intake frequency: holidays/special occasions only Substance/Drug Use: never Caregiver/support person: No Lives independently: Yes Current occupational status: employed Physical Exam Const: COMMON NORMALS: patient oriented x3 and alert OTHER: Patient is anxious, slightly tearful, and winces when she is touched Neck/C-Spine: OTHER: Large mass noted right side neck also right supraclavicular region Chest: OTHER: Large mass palpated left posterior chest wall Resp: COMMON NORMALS: normal respiratory effort, No use of accessory muscles and clear to auscultation bilaterally AUSCULTATION: clear to auscultation bilaterally Cardio: COMMON NORMALS: regular rate, regular rhythm, S1 normal heart sound present and S2 normal heart sound present RATE: regular rate RHYTHM: regular rhythm HEART SOUNDS: S1 normal heart sound present and S2 normal heart sound present Neuro: COMMON NORMALS: patient oriented x3 SENSORIUM/ORIENTATION: Yes alert Course Vital Signs: Vital signs: Vital Signs Temperature 98.5 F 11/10/22 13:11 Pulse Rate 70 11/10/22 13:11 Respiratory Rate 16 11/10/22 13:11 Blood Pressure 112/66 11/10/22 13:11 Pulse Oximetry 97 11/10/22 13:11 Oxygen Delivery Me thod Room Air 11/10/22 13:11 MDM - General Adult Medical Decision Making Patient is in today for pain control assistance. She does see Dr. De La Rosa and has chronic pain control ordered by him. She states it is not working. She had not tried to call Dr. De La Rosa yet today. She advised that they are in the process of determining exactly what type of cancer she has to develop a treatment plan. Her son states that they received the pathology results but they are unfamiliar with what that says or means. I discussed this case with Dr. Vo who advised to treat patient with Dilaudid here to try and get her pain under control. I had the patient to call Dr. De La Rosa's office so that she could schedule the next available appointment so that they could further address her chronic pain medications. I guess that when she called Dr. De La Rosa's office they understood her to be telling them that I wanted to speak with Dr. De La Rosa so Dr. De La Rosa did call and speak with me. I advised him of the patient's request for further pain control. I advised him of the plan to treat one-time dose of Dilaudid here and have her to follow-up with him. Dr. De La Rosa was very agreeable to that and asked that the patient call back and make an appointment for first thing in the morning. Patient also offers that she has not been on her anxiety medication for some time. For tonight I will go ahead and prescribe patient hydroxyzine as needed. She can further address this with Dr. De La Rosa at her appointment tomorrow. Discharge Plan Discharge Patient Disposition: Home Clinical Impression: Bilateral buttock pain, Anxiety about health, Lymphadenopathy of right cervical region Condition: Stable Prescriptions: New hydroxyzine HCl 25 mg tablet 25 mg PO Q6H PRN (Reason: anxiety) Qty: 10 0RF No Action (DME) cervical collar See Rx Instructions .Route .MEDSUPPLY Qty: 1 0RF Rx Instructions: As directed prednisone 20 mg tablet 60 mg PO DAILY 5 Days Qty: 15 0RF methocarbamol 750 mg tablet 750 mg PO Q8H Qty: 30 0RF ibuprofen 800 mg tablet 800 mg PO Q8H PRN (Reason: pain) Qty: 60 0RF lisinopril 20 mg tablet 20 mg PO QAM Qty: 90 1RF tramadol 50 mg tablet 50 mg PO Q6H PRN (Reason: pain) 15 Days Qty: 60 0RF (DME) Bone Growth Stimulator E0748 See Rx Instructions .Route .MEDSUPPLY Qty: 1 0RF Rx Instructions: As directed acetaminophen 650 mg tablet extended release 650 mg PO Q8H PRN (Reason: pain) Qty: 100 0RF oxycodone 10 mg tablet 10 mg PO QID PRN (Reason: pain) 7 Days Qty: 30 0RF morphine 30 mg tablet extended release 30 mg PO Q12H 30 Days Qty: 60 0RF diazepam 5 mg tablet 5 mg PO ONCE Qty: 1 0RF Rx Instructions: take 30 minutes prior to PET scan Zofran 4 mg PO TID PRN (Reason: nausea) Qty: 20 0RF Discharge Orders: Discharge ED (Routine); Ordered 11/10/22 Ordered By: Stacy Mayo Referrals: Monster Grigsby MD [Primary Care Provider] - Discharge Diet: Usual diet Discharge Activity: Increase activity as tolerated Patient Instructions: Anxiety (ED), Opioid Safety, Pain Management Activity Restrictions/Additional Instructions: Follow-up first thing in the morning with Dr. De La Rosa for further evaluation and management of your ongoing pain. Return to the ER as needed for new or worsening symptoms Coding Level of Care Code ED Hospice Superintendent for Mattie Javed
== END 2022-11-10 16:32 | disposition home or self-care (01) ==
PROVIDERS: Emergency Provider Nurse Practitioner Family; PCP Family Medicine Adult Medicine
DX: R59.0 Localized enlarged lymph nodes (principal); F41.8 Other specified anxiety disorders; M54.50 Low back pain, unspecified; I10 Essential (primary) hypertension; F17.210 Nicotine dependence, cigarettes, uncomplicated
CPT/HCPCS: 99283

== ENCOUNTER 2022-11-21 14:32 | Emergency (ER) | payer OTHER, MEDICAID, SELFPAY ==
--- NOTE | 2022-11-21 14:36 | XR_ITS ---
WS: [id number] EXAMINATION: XR chest 1V portable [id number] REASON FOR EXAM: cp COMPARISON: 12/19/2018 ORDER DATE: 11/21/2022 2:38 PM TECHNIQUE: A single, portable frontal chest x-ray was obtained. X-RAY FINDINGS: Since previous there is a large right hilar paramediastinal/paratracheal mass with di splacement of the trachea to the left and causing inferior displacement of the right mainstem bronchu s. There is some apical pleural thickening on the right. The lungs are clear. No pleural effusions or pneumothorax. . IMPRESSION: Large right hilar paramediastinal mass causing mass effect as noted above. Recommend CT i maging correlation. Bronchogenic carcinoma versus lymphoma or other lymphoproliferative disease is th e most probable cause..
[2022-11-21 14:45] VITALS: BMI 27.3
[2022-11-21 15:09] VITALS: BP 89/59; PULSE 102; RESP 15; TEMP 36.4; O2SAT 98
--- NOTE | 2022-11-21 15:22 | W.ED.CHESTPA ---
HPI - Chest Pain General: Chief Complaint: Chest Pain Stated Complaint: chest pressure Time Seen by Provider: 11/21/22 14:59 Source: patient and family Mode of arrival: ambulatory Limitations: no limitations History of Present Illness: This patient was referred to the emergency department from radiation oncology. She has been experiencing some chest pressure symptoms for the last 2 days. She does not have a known history of coronary artery disease or congestive heart failure. She is currently receiving radiation therapy which was initiated approximately 5 days ago for a metastatic cancer of unknown primary etiology at this time. She apparently was evaluated approximately 5 days ago and found to desaturate with activity and was placed on 2 L of oxygen nasal cannula at that time. She has had no fevers that she is aware. She has had occasional nonproductive cough. MD complaint: chest heaviness Associated symptoms: Deny abdominal pain, dyspnea, fever(s), nausea, palpitations or vomiting Review of Systems Const: Denies: fever(s) or chills Eyes: Denies: change in vision ENMT: Reports: odynophagia; Denies: nasal congestion or nasal obstruction Card: Reports: chest pain; Denies: palpitations or irregular heart rhythm Resp: Denies: dyspnea, productive cough or non-productive cough GI: Denies: abdominal pain, nausea, vomiting or hematemesis : Denies: flank pain, difficulty voiding, dysuria or urinary frequency Musc: Reports: neck pain and back pain; Denies: extremity pain or extremity swelling Skin/Breast: Denies: rash Neuro: Denies: headache(s), numbness in extremities or weakness in extremities PFS ED PFSH: Medical History Allergic rhinitis due to allergen Anxiety about health Degenerative disc disease, cervical Hypertension Peripheral arterial disease 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 Whitaker 05/25/2022 Social History Smoking and tobacco status: former smoker (0.5ppd) Quit status (tobacco): has quit using tobacco Year quit tobacco: 2022 quit in September 2022 Former quit date comment: smoked for 30 + years Second hand smoke exposure: Yes Alcohol intake: current Alcohol intake frequency: holidays/special occasions only Substance/Drug Use: never Caregiver/support person: No Lives independently: Yes Current occupational status: employed Physical Exam Narrative: EXAM NARRATIVE: The patient is alert. She has some affected speech but generally communicates in a fluent voice. Const: COMMON NORMALS: average body habitus and patient oriented x3 GENERAL APPEARANCE: cooperative HENMT: COMMON NORMALS: normocephalic, moist oral mucous membranes and oropharynx normal HEAD & SCALP: normocephalic Eye: COMMON NORMALS: Equal, round and reactive pupils present and EOMs intact bilaterally PUPIL: Yes Equal, round and reactive pupils present Neck/C-Spine: OTHER: Patient has a large mass which occupies the right side of her neck extending from the clavicle to the angle of the jaw. She also has a smaller mass at the angle of the jaw just to the mid tragus region of her right mandible. These were soft and not fluctuant. They are not pulsatile. Chest: COMMONS NORMALS: normal inspection of the chest and normal palpation of entire chest wall Resp: COMMON NORMALS: normal respiratory effort and No use of accessory muscles AUSCULTATION: diminished lung sounds Cardio: COMMON NORMALS: regular rate, regular rhythm, S1 normal heart sound present, No murmurs present (Cardio) and Peripheral pulses 2+ throughout RATE: regular rate RHYTHM: regular rhythm HEART SOUNDS: S1 normal heart sound present PERIPHERAL PULSES: Peripheral pulses 2+ throughout GI: COMMON NORMALS: Normal to inspection, nondistended, normoactive bowel sounds present, Soft to palpation and non-tender PALPATION: Yes Soft to palpation : COMMON NORMALS: Yes no CVA tenderness BLADDER/KIDNEY EXAM: Yes no CVA tenderness Back/Pelvis: COMMON NORMALS: no CVA tenderness, thoraco-lumbar ROM normal and straight leg raise negative bilaterally GENERAL BACK: Yes mass BACK IMAGE (FEMALE): 1. Subcutaneous mass Extremity: COMMON NORMALS: normal to inspection, full ROM, capillary refill normal, no calf tenderness and no pedal edema Neuro: COMMON NORMALS: patient oriented x3, moves all extremities, no focal motor deficits and no sensory deficits noted CRANIAL NERVES: Yes CN normal except as noted Psych: COMMON NORMALS: mental status grossly normal Skin: COMMON NORMALS: no rashes or lesions noted, no wounds and turgor normal GENERAL SKIN EXAM: no rashes or lesions noted and turgor normal Course Reevaluation(s): Reevaluation #1: Chest x-ray shows expected mediastinal and chest mass however it is difficult to quantify whether this mass is larger or unchanged from previous CT therefore we will going proceed with a noncontrasted CT to determine if there is increasing mass effect that needs to be addressed at this time. Time: 16:00 Reevaluation #2: CT scan shows intrathoracic masses which are unchanged from the PET scan from last month. Time: 18:12 Vital Signs: Vital signs: Vital Signs Temperature 97.5 F L 11/21/22 15:09 Pulse Rate 135 H 11/21/22 17:15 Respiratory Rate 15 11/21/22 17:15 Blood Pressure 109/79 11/21/22 17:15 Pulse Oximetry 99 11/21/22 17:15 Oxygen Delivery Me thod Nasal Cannula 11/21/22 16:54 Oxygen Flow Rate 2 11/21/22 16:54 MDM - Chest Pain Medical Decision Making This unfortunate lady presented to the emergency department because of chest discomfort. She is has metastatic cancer which has included masses intrathoracic as well as extrathoracic cervical and soft tissue. She is initiated radiation therapy last week and continues that therapy. She is here because she has had some chest pressure. He has no known history of cardiovascular disease. Concerns were regarding possible ACS versus increase intrathoracic mass volume causing symptoms versus just progression of her disease. Serial EKGs, serial troponins, chest CT and other ancillary studies were obtained. Troponins were elevated but showed no rise mitigating against ACS at this time. EKG showed no dynamic or ischemic changes. Her chest CT did not reveal any increase in her chest mass volume however I suspect that this is probably a major contributor to her symptoms. She has not had any relief of her heartburn sensation from previous omeprazole prescribed and so we will add Carafate to her regimen. At this point no indication that any ongoing emergency medical condition exist. She has ongoing scheduled radiation therapy. She has adequate pain control and again we have added Carafate to her regimen. We discussed return precautions and follow-up with both she and her family member who is providing her in home care. Medical Records I reviewed the patient's medical records. Metastatic disease of unknown primary ongoing radiation therapy daily commencing last week and continuing through this week. Lab Data I reviewed the patient's lab results. 11/21/22 15:15 11/21/22 15:[address] 11/21/22 15:58 IMPRESSION: 1. Right supraclavicular mass/adenopathy partially demonstrated. 2. Bulky mediastinal and right hilar adenopathy noted. 3. 2.3 cm nonspecific right breast mass, series 4, image 29. Subcutaneous 9 mm nodule in the left anterior chest wall, series 4, image 25. 4. Right axillary lymphadenopathy noted, with nodes up to 2 cm in length. Fleischner Society follow up recommendations for incidental nodules are not indicated. Follow up per the patient's medical condition. 5. Nonspecific right upper lobe lung nodules are identified, measuring up to 12 mm in diameter. 6. Findings are similar to PET/CT scan dated 11/05/2022. No new abnormality noted. Laboratory Results WBC 9.3 10^3/uL (4.0-10.0) 11/21/22 15:15 RBC 3.63 10^6/uL (4.1-5.3) L 11/21/22 15:15 Hgb 10.7 g/dL (11.5-15.3) L 11/21/22 15:15 Hct 33.6 % (37.0-47.0) L 11/21/22 15:15 MCV 92.6 fl (81-99) 11/21/22 15:15 MCH 29.5 pg (28.0-34.0) 11/21/22 15:15 MCHC 31.8 g/dL (30.0-36.0) 11/21/22 15:15 RDW 14.1 % (12.1-15.1) 11/21/22 15:15 Plt Count 416 10^3/cmm (130-400) H 11/21/22 15:15 MPV 9.3 fL (7.4-10.4) 11/21/22 15:15 Neut % (Auto) 84.2 % 11/21/22 15:15 Lymph % (Auto) 7.2 % 11/21/22 15:15 Greene % (Auto) 6.7 % 11/21/22 15:15 Eos % (Auto) 1.0 % 11/21/22 15:15 Baso % (Auto) 0.3 % 11/21/22 15:15 Neut # (Auto) 7.83 10^3/uL (1.8-7.7) H 11/21/22 15:15 Lymph # (Auto) 0.7 10^3/uL (0.8-4.8) L 11/21/22 15:15 Greene # (Auto) 0.6 10^3/uL (0.2-0.9) 11/21/22 15:15 Eos # (Auto) 0.1 10^3/uL (0.0-0.8) 11/21/22 15:15 Baso # (Auto) 0.0 10^3/uL (0.0-0.1) 11/21/22 15:15 Nucleated RBC % (auto) 0 % 11/21/22 15:15 Nucleated RBCs # 0.0 /100WBC 11/21/22 15:15 Sodium 132 mmol/L (136-145) L 11/21/22 15:15 Potassium 5.2 mmol/L (3.5-5.1) H 11/21/22 15:15 Chloride 90 mmol/L (98-107) L 11/21/22 15:15 Carbon Dioxide 25 mmol/L (22-29) 11/21/22 15:15 Anion Gap 22.2 (5-19) H 11/21/22 15:15 BUN 50 mg/dL (6-20) H 11/21/22 15:15 Creatinine 1.4 mg/dL (0.5-0.9) H 11/21/22 15:15 GFR Calculation 38.8 mL/min (90-130) L 11/21/22 15:15 Glucose 96 mg/dL (65-115) 11/21/22 15:15 Calculated Osmolality 287 mOsm/kg (285-295) 11/21/22 15:15 Calcium 11.6 mg/dL (8.5-10.5) H 11/21/22 15:15 Troponin T Baseline 22 ng/L (0-10) H 11/21/22 15:15 Troponin T 120 Minute 21.31 ng/L (0-10) H 11/21/22 17:21 Delta Troponin T -0.69 ABS# (0-10) L 11/21/22 17:21 EKG Data EKG 1: I personally reviewed and interpreted this EKG as follows: Interpretation: Contemporaneous review of like resting EKG reveals a ventricular rate of 133 bpm. Consistent with sinus tachycardia. She has a short WI interval at 116 ms. QRS duration is normal, corrected QT interval is normal. Normal axis. He has no acute ST-T wave changes noted. There is no change in her [place] QRS complexes. Discharge Plan Discharge Patient Disposition: Home Clinical Impression: Metastatic cancer, Chest pain Condition: Stable Prescriptions: New Carafate 100 mg/mL suspension 1 g PO TID 28 Days Qty: 840 1RF No Action (DME) cervical collar See Rx Instructions .Route .MEDSUPPLY Qty: 1 0RF Rx Instructions: As directed lisinopril 20 mg tablet 20 mg PO QAM Qty: 90 1RF Rx Instructions: (been on hold for 2 months per son 11/21/22) (DME) Bone Growth Stimulator E0748 See Rx Instructions .Route .MEDSUPPLY Qty: 1 0RF Rx Instructions: As directed morphine 60 mg tablet extended release 60 mg PO Q12H 30 Days Qty: 60 0RF morphine 30 mg tablet 30 mg PO QID PRN (Reason: pain) 30 Days Qty: 120 0RF dronabinol 5 mg capsule 5 mg PO BID Qty: 60 0RF Rx Instructions: (waiting for pa per [facility] 11/21/22) administer before lunch and evening meal/dinner (DME) hospital bed See Rx Instructions .Route .MEDSUPPLY Qty: 1 0RF Rx Instructions: head of bed elevated 30 degrees (DME) front wheel folding walker See Rx Instructions .Route .MEDSUPPLY Qty: 1 0RF Rx Instructions: As directed ([facility]) portable oxygen concentrator See Rx Instructions .Route .MEDSUPPLY Qty: 1 0RF Rx Instructions: 2L nasal cannula at all times pantoprazole 40 mg tablet,delayed release (DR/EC) 40 mg PO QAM hydroxyzine HCl 25 mg tablet 25 mg PO Q6H PRN (Reason: anxiety) Qty: 10 0RF Discharge Orders: Discharge ED (Routine); Ordered 11/21/22 Ordered By: Blake Albert Discharge Diet: GI Soft Discharge Activity: Increase activity as tolerated Patient Instructions: Opioid Safety, Pain Management Activity Restrictions/Additional Instructions: Continue your usual medications as prescribed with Dr. De La Rosa. We have added Carafate liquid to help with your heartburn symptoms. Follow-up with Dr. De La Rosa and radiation oncology tomorrow as scheduled. If it anytime you have worsening symptoms return to this or the nearest emergency department immediately. Coding Level of Care Code ED Director Process Improvement for Mattie Javed
[2022-11-21 15:24] LABS: Basophils % 0.3 %; Eosinophils # 0.1 10^3/uL (0.0-0.8); Hematocrit 33.6 % (37.0-47.0); Hemoglobin 10.7 g/dL (11.5-15.3); Lymphocytes # 0.7 10^3/uL (0.8-4.8); Lymphocytes % 7.2 %; Mean Corpuscular HGB Conc 31.8 g/dL (30.0-36.0); Mean Corpuscular Hemoglobin 29.5 pg (28.0-34.0); Mean Corpuscular Volume 92.6 fl (81-99); Mean Platelet Volume 9.3 fL (7.4-10.4); Monocytes # 0.6 10^3/uL (0.2-0.9); Monocytes % 6.7 %; Neutrophils # 7.83 10^3/uL (1.8-7.7); Neutrophils % 84.2 %; Nucleated Red Blood Cells % 0 %; Platelet Count 416 10^3/cmm (130-400); Red Blood Count 3.63 10^6/uL (4.1-5.3); Red Cell Distribution Width 14.1 % (12.1-15.1); White Blood Count 9.3 10^3/uL (4.0-10.0)
[2022-11-21 15:29] VITALS: RESP 16; O2SAT 99
[2022-11-21] MEDS: morphine 4 mg/mL SDV 1 mL IVP ×2 (15:29→18:19)
[2022-11-21 15:56] LABS: Troponin(5th) Baseline 22 ng/L (0-10)
--- NOTE | 2022-11-21 15:58 | CTR_ITS ---
PROCEDURE INFORMATION: Exam: CT Chest Without Contrast; Diagnostic Exam date and time: 11/21/2022 4:46 PM Age: 57 years old Clinical indication: Pain; Chest pressure; Additional info: Increasing cp and known metastatic CA TECHNIQUE: Imaging protocol: Diagnostic computed tomography of the chest without contrast. Radiation optimization: All CT scans at this facility use at least one of these dose optimization techniques: automated exposure control; mA and/or kV adjustment per patient size (includes targeted exams where dose is matched to clinical indication); or iterative reconstruction. REPORTING DATA: Count of CT and Cardiac NM exams in prior 12 months: This patient has received 4 known CTs and 0 known cardiac nuclear medicine studies in the 12 months prior to the current study. COMPARISON: PT PET skulltothigh INITIAL [id number] 11/05/2022 12:52 PM RADIATION DOSE METRICS: Total DLP (mGy-cm): 393.93 FINDINGS: Lungs: Nonspecific right upper lobe lung nodules are identified, measuring up to 12 mm in diameter. Nonspecific bronchial wall thickening noted bilaterally. No consolidative infiltrates.No pleural effusion or pneumothorax noted. Pleural spaces: No pleural effusion or pneumothorax noted. Heart: No cardiomegaly. No pericardial effusion. Coronary arteries: The coronary arteries demonstrate atherosclerotic calcifications. Lymph nodes: Bulky mediastinal and right hilar adenopathy noted. Right axillary lymphadenopathy noted, with nodes up to 2 cm in length. Vasculature: Atherosclerosis of the thoracic aorta. No aortic aneurysm. Intraperitoneal space: Mild ascites demonstrated in the upper abdomen. Bones/joints: No acute fracture or other acute osseous abnormality. Soft tissues: Right supraclavicular mass/adenopathy partially demonstrated. 2.3 cm nonspecific right breast mass, series 4, image 29. Subcutaneous 9 mm nodule in the left anterior chest wall, series 4, image 25. CT/CT chest wo con [id number] IMPRESSION: 1. Right supraclavicular mass/adenopathy partially demonstrated. 2. Bulky mediastinal and right hilar adenopathy noted. 3. 2.3 cm nonspecific right breast mass, series 4, image 29. Subcutaneous 9 mm nodule in the left anterior chest wall, series 4, image 25. 4. Right axillary lymphadenopathy noted, with nodes up to 2 cm in length. Fleischner Society follow up recommendations for incidental nodules are not indicated. Follow up per the patient's medical condition. 5. Nonspecific right upper lobe lung nodules are identified, measuring up to 12 mm in diameter. 6. Findings are similar to PET/CT scan dated 11/05/2022. No new abnormality noted.
[2022-11-21 15:59] LABS: Anion Gap 22.2 (5-19); Blood Urea Nitrogen 50 mg/dL (6-20); Calcium 11.6 mg/dL (8.5-10.5); Carbon Dioxide 25 mmol/L (22-29); Chloride 90 mmol/L (98-107); Glomerular Filtration Rate 38.8 mL/min (90-130); Glucose 96 mg/dL (65-115); Osmolality Calculated 287 mOsm/kg (285-295); Potassium 5.2 mmol/L (3.5-5.1); Sodium 132 mmol/L (136-145)
--- NOTE | 2022-11-21 16:39 | ECG_ITS ---
[facility] Test Date: 2022-11-21 Pat Name: Hortensia Lanier Department: Room: Gender: Female Video And Sound Recorder: : 1965 Requested By: Blake Albert Order Number: [id number] Nereida MD: Kathrin Helm M.D. Measurements Intervals [place] Rate: 133 P: 57 OR: 112 QRS: 48 QRSD: 93 T: 58 QT: 332 QTc: 494 Interpretive Statements SINUS TACHYCARDIA WITH SHORT OR INTERVAL NONSPECIFIC T-WAVE ABNORMALITY Compared to ECG 11/21/2022 15:03:41 No significant changes Electronically Signed On 11-21-2022 17:16:00 CDT by Kathrin Helm M.D. [id number]
[2022-11-21 16:54] VITALS: BP 109/79; PULSE 127; RESP 18; O2SAT 100
--- NOTE | 2022-11-21 17:13 | PC.PHAR ---
pt states her son helps her with her medications-pts son states the pts lisinopril 20mg daily is on hold states its been on hold for 2 months ext shows last filled 09/08/22 90d/s-pts son states the pt hasnt gotten the marinol 5mg bid written on 11/11/22 alexei from [facility] states waiting for a pa from the drs office-notes are made in the pharmacy comments
[2022-11-21 17:15] VITALS: BP 109/79; PULSE 135; RESP 15; O2SAT 99
[2022-11-21 17:51] LABS: Troponin 5 2HR 21.31 ng/L (0-10)
[2022-11-21 17:54] LABS: Troponin 5 2HR Delta -0.69 ABS# (0-10)
[2022-11-21] MEDS: sucralfate 1 gm/10 mL Oral Liq UDC PO (18:15)
[2022-11-21 18:19] VITALS: RESP 18; O2SAT 98
[2022-11-21 18:30] VITALS: BP 119/82; PULSE 127; RESP 16; O2SAT 98
--- NOTE | 2022-11-21 20:36 | ECG_ITS ---
[facility] Test Date: 2022-11-21 Pat Name: Hortensia Lanier Department: Room: Gender: Female Quality Assurance Advisor: : 1965 Requested By: Blake Albert Order Number: [id number] Padron MD: Kahtrin Heml M.D. Measurements Intervals [place] Rate: 133 P: 66 VA: 116 QRS: 50 QRSD: 89 T: 38 QT: 332 QTc: 494 Interpretive Statements SINUS TACHYCARDIA WITH SHORT VA INTERVAL NONSPECIFIC T-WAVE ABNORMALITY ABNORMAL RHYTHM ECG Compared to ECG 05/18/2022 09:48:28 Short VA interval now present T-wave abnormality now present Sinus rhythm no longer present Electronically Signed On 11-21-2022 17:17:09 CDT by Kathrin Helm M.D. [id number]
== END 2022-11-21 18:31 | disposition home or self-care (01) ==
PROVIDERS: Emergency Provider Emergency Medicine; PCP Family Medicine Adult Medicine
DX: R07.9 Chest pain, unspecified (principal); C79.89 Secondary malignant neoplasm of other specified sites; C80.1 Malignant (primary) neoplasm, unspecified; Z87.891 Personal history of nicotine dependence; I10 Essential (primary) hypertension; Z79.899 Other long term (current) drug therapy
CPT/HCPCS: 36415; 71045; 71250; 80048; 84484; 85025; 93005; 96374; 96376; 99285; J2270

== ENCOUNTER 2022-11-23 09:29 | Oncology outpatient (recurring) (ONCR) | payer OTHER, MEDICAID, SELFPAY ==
--- NOTE | 2022-11-16 09:06 | N.ONRAD NP_ITS ---
Radiation Oncology New Patient Visit Patient: Hortensia Lanier MR#: [id number] : 1965> Age: 57> Sex: Female> Dictated by: Thaddeus Gloria Date of Service: 11/15/2022 Referring Physician(s) : Isrrael De La Rosa M.D. 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 Widespread faye, bilateral adrenal and soft tissue metastatic involvement. Here to address most symptomatic sites over upper back and right buttock regions. She underwent biopsy of right supraclavicular adenopathy 10/19/2022. Radiotherapy to date: Summary No prior radiation therapy. Chief Complaint / History of Present Illness: She underwent cervical spine fusion 05/2022. She then developed progressive pain in right buttock region over the last 8 weeks. Multiple primary care and ER visits failed to identify a source. Initial CT 10/12/2022 revealed bulky right neck, mediastinal adenopathy, soft tissue masses in chest wall and back, bilateral adrenal masses. Right supraclavicular lymph node biopsy 10/19/2022 revealed metastatic carcinoma. IHC studies were potentially consistent with adrenal cortical carcinoma. Extensive genomic study submitted by Dr. De La Rosa did not reveal any biomarker results to direct a particular therapy. Chemotherapy will now be considered. She has ongoing poorly controlled right buttock pain associated with a mass and a painful mass in midline over her upper back. She has diminished appetite and 30 pound weight loss. Tolerating soft foods only. Mild nausea. No headaches. PET/CT reveals bulky bilateral cervical and supraclavicular adenopathy extending into bulky mediastinal adenopathy, retroperitoneal and pelvic adenopathy, scattered osseous lesions, bilateral adrenal masses, bulky right buttock mass, smaller upper thoracic mass and multiple other soft tissue masses elsewhere all with FDG uptake. Current Medications: DiazePAM, eQ Acetaminophen, hydrOXYzine HCl, ibuprofen, lisinopril, methocarbamol, morphine Sulfate ER, ondansetron HCl, oxyCODONE HCl, predniSONE, traMADol HCl. Allergies: NKA Medical History: No history of collagen vascular disease. No previous radiation therapy. Degenerative disc disease. PVD, Surgical History: C spine fusion, appendectomy, Stenting of subclavian artery. Family History: Not obtained. Social History: . Smokes .5 ppd. Lives with one son who is with her here. 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 Vital Signs: Performed on 11/15/2022 3:53 PM BMI - 27.521 kg/m2 (high), Height - 68 in, Weight - 181 lbs, Temperature - 97.8 f, Pulse - 92 /min, Respiration - 18 /min, O2 Sat - 98 %, Pain - 6, Fatigue - 0 and BP - 124/ 91 mm(hg)(/high). Physical Exam: Wheelchair bound due to pain. Bulky bilateral cervical and supraclavicular adenopathy, much greater on right side. 4cm mass midline over upper thoracic back. Diffuse mass in right buttock. Performance Status: ECOG PS 2-3 Pathology: See above Lab: Hb12.2, wbc 13,700, plat 377,000 Cr 1.1 Ca 9.2 LFTs ok. Imaging: See HPI Impression: Widely metastatic carcinoma of unknown primary site. 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 No actionable biomarkers to justify targeted therapy. We will limit our treatment to the most symptomatic areas over the upper back and right buttock regions. Plan on 5 Gy x 5 = 25 Gy . Plan on simulation today with treatment to begin tomorrow. Following this, Dr. De La Rosa will address chemotherapy. Signed by: 11/16/2022 9:05:36 AM <<Signature on File>> Time spent with patient: CPT Code: CPT Code:
[2022-11-16 15:53] VITALS: RESP 18
[2022-11-16] MEDS: morphine 4 mg/mL SDV 1 mL SUBCUT (15:53)
[2022-11-22] MEDS: sodium chloride 0.9% 1,000 ML 999 ML IV (15:35)
[2022-11-22] MEDS: LORazepam 2 mg/mL INJ 1 mL 0.5 MG IVP (15:37)
== END 2022-11-26 23:59 | disposition home or self-care (01) ==
PROVIDERS: PCP Family Medicine Adult Medicine; Visit Provider Radiology Radiation Oncology
DX: Z51.0 Encounter for antineoplastic radiation therapy (principal); C80.1 Malignant (primary) neoplasm, unspecified; C79.72 Secondary malignant neoplasm of left adrenal gland; C79.71 Secondary malignant neoplasm of right adrenal gland; C79.89 Secondary malignant neoplasm of other specified sites
CPT/HCPCS: 77290; 77295; 77300; 77334; 77387; 77412; 96360; 96372; J2060; J2270; J7030